=== PATIENT | male | born 1935 | race Two or more races ===

== ENCOUNTER 2016-09-19 15:27 | Inpatient (IN) | payer OTHER, MEDICARE ==
[2016-09-19] VITALS (10 sets, daily range): BP systolic 99–135; BP diastolic 49–106
[~2016-09-19] VITALS: Ht 175.3 cm; Wt 99.8 kg
[~2016-09-19 15:27] MED LIST: ALBU18HF2 INH; AMIO200T2 PO; ASPI325T2 PO; BISA-79 PO; CLOP75TA2 PO; DOCU100T PO; FERR1TAB44 PO; FLUT1DIS5 IH; FURO-144 PO; MECL-102 PO; METO5TAB7 PO; PHEN100C12 PO; POTA10TA15 PO; SENN-15 PO; SPIR25TA4 PO; TAMS0.4C34 PO; TIOT18CA3 IH
[2016-09-19] MEDS ORDERED: DEXAMETHASONE SOD PHOSPHATE 10 MG/ML VIAL ONE (15:46)
[2016-09-19] MEDS ORDERED: ALBUTEROL FS 2.5 MG/3 ML VIAL.NEB ONE (15:47)
[2016-09-19] MEDS ORDERED: IPRATROPIUM NEB FS 0.5 MG/2.5 ML AMPUL.NEB ONE (15:48)
[2016-09-19 15:53] LABS: BASOPHILS % (AUTO) 0.2 % (0.0-2.0); DIFF TOTAL % 100 %; EOSINOPHILS # (AUTO) 0.1 /CMM (0.0-0.7); EOSINOPHILS % (AUTO) 0.8 % (0.0-6.0); HEMATOCRIT 43 % (39-51); LYMPHOCYTES # (AUTO) 0.9 /CMM (0.8-4.8); LYMPHOCYTES % (AUTO) 6.4 % (20.0-44.0); MEAN CORPUSCULAR HEMOGLOBIN 22 PG (26.0-33.0); MEAN CORPUSCULAR HGB CONC 31 g/dl (31.0-36.0); MEAN CORPUSCULAR VOLUME 72 fL (80-96); MONOCYTES # (AUTO) 1.1 /CMM (0.1-1.30); NEUTROPHILS # (AUTO) 11.2 /CMM (1.8-8.9); NEUTROPHILS % (AUTO) 84.6 % (43.0-81.0); PLATELET COUNT (AUTO) 229 /CMM (150-450); RED BLOOD CELL COUNT(AUTO) 5.95 MIL/uL (4.5-6.0); WHITE BLOOD COUNT (AUTO) 13.3 K/uL (4.3-11.0)
[2016-09-19] MEDS ORDERED: IPRATROPIUM NEB FS 0.5 MG/2.5 ML AMPUL.NEB NEB ONE (16:00)
[2016-09-19] MEDS ORDERED: DEXAMETHASONE SOD PHOSPHATE 10 MG/ML VIAL IV ONE (16:00)
[2016-09-19] MEDS ORDERED: ALBUTEROL FS 2.5 MG/3 ML VIAL.NEB CONTNEB ONE (16:00)
[2016-09-19 16:16] LABS: ALBUMIN 3.4 g/dL (3.4-5.0); BILIRUBIN,DIRECT 0.1 mg/dL (0.0-0.2); BILIRUBIN,TOTAL 0.3 mg/dL (0.2-1.0); CALCIUM, SERUM 8.8 mg/dL (8.5-10.1); CREATININE 1.3 mg/dL (0.6-1.3); INDIRECT BILIRUBIN 0.2 mg/dL (0.0-1.1); TOTAL PROTEIN, SERUM 8.1 g/dL (6.4-8.2)
[2016-09-19 16:19] LABS: ABG BASE EXCESS 25.4 mmol/L; ABG HCO3 55.4 mmol/L; ABG PCO2 87.6 mmHg (35.0-45.0); ABG PH 7.419 (7.350-7.450); ABG PO2 65.3 mmHg (75.0-100.0); ABG TOTAL HEMOGLOBIN 13.2 G/dL (13.5-18.0); ALLEN TEST Pass; AaDO2 119.2 mmHg; O2Hb 91.4 % (94.0-97.0)
[2016-09-19 16:19] LABS: TROPONIN I 0.044 ng/mL (0.00-0.056)
[2016-09-19] MEDS ORDERED: AMIO200T2 PO (16:26)
[2016-09-19] MEDS ORDERED: POTASSIUM CHLORIDE 20 MEQ TAB.PRT.SR PO ONE ×2 (16:56→17:00)
[2016-09-19] MEDS ORDERED: IV SET PRIMARY PUMP SET 1 EA INFUS.SET MC ONE ×2 (16:57→20:08)
[2016-09-19] MEDS ORDERED: POTASSIUM CL. PREMIX PERIPHER. 50 ML ONE ×2 (16:57→21:33)
[2016-09-19] MEDS ORDERED: PHENYTOIN EXTENDED RELEASE 100 MG CAPSULE PO SCH (17:00)
[2016-09-19] MEDS ORDERED: SPIRONOLACTONE 25 MG TABLET PO SCH (17:00)
[2016-09-19] MEDS ORDERED: MECLIZINE HCL 25 MG TABLET PO PRN ×2 (17:00→17:45)
[2016-09-19] MEDS ORDERED: ENOXAPARIN SODIUM 40 MG/0.4 ML DISP.SYRIN SQ SCH ×2 (17:00→17:45)
[2016-09-19] MEDS ORDERED: AMIODARONE HCL 200 MG TABLET PO SCH ×2 (17:00→17:45)
[2016-09-19] MEDS ORDERED: FUROSEMIDE 40 MG/4 ML VIAL IV SCH (17:00)
[2016-09-19] MEDS: POTASSIUM CL. PREMIX PERIPHER. 50 ML IV SCH ×2 (17:11→21:37)
[2016-09-19 17:35] LABS: PHOSPHORUS 1.9 mg/dL (2.5-4.9)
[2016-09-19 17:49] LABS: THYROID STIMULATING HORMONE 7.904 uIU/mL (0.358-3.74)
[2016-09-19 17:53] LABS: ANISOCYTOSIS 1+; EOSINOPHILS % (MANUAL) 1 % (0-4); HYPOCHROMASIA 1+; LYMPHOCYTES % (MANUAL) 2 % (16-48); MICROCYTOSIS 1+; PLATELET ESTIMATE ADEQUATE
[2016-09-19] MEDS ORDERED: ACETAMINOPHEN 325 MG TABLET PO PRN (18:00)
[2016-09-19] MEDS ORDERED: DOCUSATE SODIUM 100 MG CAPSULE PO PRN ×2 (18:00→18:30)
[2016-09-19] MEDS ORDERED: ALBUTEROL FS 2.5 MG/3 ML VIAL.NEB NEB PRN (18:00)
[2016-09-19] MEDS: SPIRONOLACTONE 25 MG TABLET PO SCH (19:48)
[2016-09-19] MEDS: PHENYTOIN EXTENDED RELEASE 100 MG CAPSULE PO SCH (19:48)
[2016-09-19] MEDS: FUROSEMIDE 40 MG/4 ML VIAL IV SCH ×2 (19:48→21:37)
[2016-09-19] MEDS: NITROGLYCERIN PACKET 1 GM PACKET TOP SCH ×2 (19:49→23:40)
[2016-09-19] MEDS ORDERED: LEVOFLOXACIN 750 MG /D5W 150ML 750 MG in PREMIX 1 EA IV SCH (20:00)
[2016-09-19] MEDS ORDERED: BUMETANIDE INJ 8 MG in IV NS 0.9% 48 ML IV ONE (20:00)
[2016-09-19] MEDS: ALBUTEROL FS 2.5 MG/3 ML VIAL.NEB NEB SCH (20:04)
[2016-09-19] MEDS ORDERED: SECONDARY IV SET 1 EA INFUS.SET MC ONE ×2 (20:08→21:34)
[2016-09-19] MEDS ORDERED: IV NS 0.9% 250 ML IV ONE (20:08)
[2016-09-19] MEDS: LEVOFLOXACIN 750 MG /D5W 150ML 750 MG in PREMIX 1 EA IV SCH (20:18)
[2016-09-19] MEDS: methylPREDNISolone SOD SUCC 125 MG/2ML VIAL IV SCH (21:02)
[2016-09-19] MEDS: ENOXAPARIN SODIUM 40 MG/0.4 ML DISP.SYRIN SQ SCH (21:02)
[2016-09-20] VITALS (24 sets, daily range): BP systolic 87–153; BP diastolic 28–106
[2016-09-20] MEDS: FUROSEMIDE 40 MG/4 ML VIAL IV SCH (01:51)
[2016-09-20] MEDS: methylPREDNISolone SOD SUCC 125 MG/2ML VIAL IV SCH ×3 (05:02→21:32)
[2016-09-20] MEDS: NITROGLYCERIN PACKET 1 GM PACKET TOP SCH ×3 (05:03→18:00)
[2016-09-20 05:31] LABS: DIFF TOTAL % 100 %; HEMATOCRIT 44 % (39-51); HEMOGLOBIN 13.4 g/dL (13.5-17.5); LYMPHOCYTES # (AUTO) 0.5 /CMM (0.8-4.8); LYMPHOCYTES % (AUTO) 4.5 % (20.0-44.0); MEAN CORPUSCULAR HEMOGLOBIN 22 PG (26.0-33.0); MEAN CORPUSCULAR HGB CONC 31 g/dl (31.0-36.0); MEAN CORPUSCULAR VOLUME 72 fL (80-96); MONOCYTES # (AUTO) 0.6 /CMM (0.1-1.30); MONOCYTES % (AUTO) 5.3 % (2.0-12.0); NEUTROPHILS # (AUTO) 10.6 /CMM (1.8-8.9); NEUTROPHILS % (AUTO) 90.2 % (43.0-81.0); PLATELET COUNT (AUTO) 257 /CMM (150-450); RED BLOOD CELL COUNT(AUTO) 6.05 MIL/uL (4.5-6.0); WHITE BLOOD COUNT (AUTO) 11.8 K/uL (4.3-11.0)
[2016-09-20 05:37] LABS: CALCIUM, SERUM 9.3 mg/dL (8.5-10.1); CREATININE 1.4 mg/dL (0.6-1.3); POTASSIUM 4.1 mmol/L (3.5-5.1)
[2016-09-20 06:11] LABS: POTASSIUM 2.8 mmol/L (3.5-5.1)
[2016-09-20] MEDS ORDERED: BUMETANIDE INJ 8 MG in IV NS 0.9% 48 ML IV ONE (07:30)
[2016-09-20] MEDS: ALBUTEROL FS 2.5 MG/3 ML VIAL.NEB NEB SCH ×3 (07:38→19:41)
[2016-09-20] MEDS ORDERED: POTASSIUM CHLORIDE 20 MEQ TAB.PRT.SR PO SCH (08:00)
[2016-09-20] MEDS ORDERED: SECONDARY IV SET 1 EA INFUS.SET MC ONE (08:21)
[2016-09-20] MEDS: Magnesium 1GM/D5W 100ML PREMIX 100 ML IV SCH ×2 (08:51→10:39)
[2016-09-20] MEDS: PANTOPRAZOLE 40 MG TABLET.DR PO SCH (08:52)
[2016-09-20] MEDS: ASPIRIN 325 MG TABLET PO SCH (08:53)
[2016-09-20] MEDS: SPIRONOLACTONE 25 MG TABLET PO SCH ×3 (08:53→17:33)
[2016-09-20] MEDS: PHENYTOIN EXTENDED RELEASE 100 MG CAPSULE PO SCH ×3 (08:54→17:33)
[2016-09-20] MEDS: CLOPIDOGREL BISULFATE 75 MG TABLET PO SCH (08:55)
[2016-09-20] MEDS: TAMSULOSIN 0.4 MG CAP.SR.24H PO SCH (08:55)
[2016-09-20] MEDS: FERROUS SULFATE (325 MG) 325 MG/TAB TABLET PO SCH (08:55)
[2016-09-20] MEDS: METOLAZONE 2.5 MG TABLET PO SCH (08:56)
[2016-09-20] MEDS ORDERED: ASPIRIN 325 MG TABLET PO SCH ×2 (09:00)
[2016-09-20] MEDS ORDERED: FERROUS SULFATE (325 MG) 325 MG/TAB TABLET PO SCH ×2 (09:00)
[2016-09-20] MEDS ORDERED: CLOPIDOGREL BISULFATE 75 MG TABLET PO SCH (09:00)
[2016-09-20] MEDS ORDERED: TAMSULOSIN 0.4 MG CAP.SR.24H PO SCH (09:00)
[2016-09-20] MEDS ORDERED: METOLAZONE 2.5 MG TABLET PO SCH (09:00)
[2016-09-20] MEDS ORDERED: ASPIRIN 81 MG TAB.CHEW PO SCH (09:00)
[2016-09-20] MEDS ORDERED: Magnesium 1GM/D5W 100ML PREMIX 100 ML IV SCH (09:00)
[2016-09-20] MEDS: AMIODARONE HCL 200 MG TABLET PO SCH ×2 (09:00→17:33)
[2016-09-20 09:19] LABS: LYMPHOCYTES % (MANUAL) 4 % (16-48)
[2016-09-20 09:20] LABS: ANISOCYTOSIS 1+; HYPOCHROMASIA 1+; MICROCYTOSIS 1+; PLATELET ESTIMATE ADEQUATE
[2016-09-20] MEDS: IPRATROPIUM NEB FS 0.5 MG/2.5 ML AMPUL.NEB NEB SCH ×2 (13:02→19:41)
[2016-09-20] MEDS: ENOXAPARIN SODIUM 40 MG/0.4 ML DISP.SYRIN SQ SCH (21:27)
[2016-09-21] VITALS (8 sets, daily range): BP systolic 109–141; BP diastolic 56–74
[2016-09-21] MEDS: IPRATROPIUM NEB FS 0.5 MG/2.5 ML AMPUL.NEB NEB SCH ×4 (01:20→19:29)
[2016-09-21] MEDS: methylPREDNISolone SOD SUCC 125 MG/2ML VIAL IV SCH ×3 (05:50→20:23)
[2016-09-21] MEDS: NITROGLYCERIN PACKET 1 GM PACKET TOP SCH ×3 (05:50→12:47)
[2016-09-21] MEDS: ALBUTEROL FS 2.5 MG/3 ML VIAL.NEB NEB SCH ×3 (07:19→19:29)
[2016-09-21 07:41] LABS: ALBUMIN 3.2 g/dL (3.4-5.0); BILIRUBIN,TOTAL 0.3 mg/dL (0.2-1.0); CALCIUM, SERUM 9.3 mg/dL (8.5-10.1); CREATININE 1.4 mg/dL (0.6-1.3); PHOSPHORUS 3.4 mg/dL (2.5-4.9); POTASSIUM 3.3 mmol/L (3.5-5.1)
[2016-09-21 08:16] LABS: DIFF TOTAL % 100 %; HEMATOCRIT 44 % (39-51); HEMOGLOBIN 13.5 g/dL (13.5-17.5); LYMPHOCYTES # (AUTO) 0.8 /CMM (0.8-4.8); LYMPHOCYTES % (AUTO) 4.4 % (20.0-44.0); MEAN CORPUSCULAR HEMOGLOBIN 22 PG (26.0-33.0); MEAN CORPUSCULAR HGB CONC 31 g/dl (31.0-36.0); MEAN CORPUSCULAR VOLUME 71 fL (80-96); MONOCYTES # (AUTO) 0.9 /CMM (0.1-1.30); MONOCYTES % (AUTO) 5.1 % (2.0-12.0); NEUTROPHILS # (AUTO) 15.9 /CMM (1.8-8.9); NEUTROPHILS % (AUTO) 90.5 % (43.0-81.0); PLATELET COUNT (AUTO) 231 /CMM (150-450); RED BLOOD CELL COUNT(AUTO) 6.17 MIL/uL (4.5-6.0); WHITE BLOOD COUNT (AUTO) 17.5 K/uL (4.3-11.0)
[2016-09-21] MEDS: PANTOPRAZOLE 40 MG TABLET.DR PO SCH (08:47)
[2016-09-21] MEDS: FERROUS SULFATE (325 MG) 325 MG/TAB TABLET PO SCH (08:48)
[2016-09-21] MEDS: AMIODARONE HCL 200 MG TABLET PO SCH ×2 (08:48→17:15)
[2016-09-21] MEDS: PHENYTOIN EXTENDED RELEASE 100 MG CAPSULE PO SCH ×3 (08:48→17:15)
[2016-09-21] MEDS: SPIRONOLACTONE 25 MG TABLET PO SCH ×3 (08:48→17:15)
[2016-09-21] MEDS: TAMSULOSIN 0.4 MG CAP.SR.24H PO SCH (08:48)
[2016-09-21] MEDS: ASPIRIN 325 MG TABLET PO SCH (08:48)
[2016-09-21] MEDS: METOLAZONE 2.5 MG TABLET PO SCH (08:49)
[2016-09-21] MEDS: CLOPIDOGREL BISULFATE 75 MG TABLET PO SCH (08:49)
[2016-09-21] MEDS ORDERED: MAGNESIUM CITRATE 296 ML BOTTLE PO ONE (10:00)
[2016-09-21] MEDS ORDERED: POTASSIUM CHLORIDE 20 MEQ TAB.PRT.SR PO SCH (12:00)
[2016-09-21] MEDS: POTASSIUM CHLORIDE 20 MEQ TAB.PRT.SR PO SCH ×2 (14:17→15:00)
[2016-09-21] MEDS: NITROGLYCERIN 30 GM TUBE TOP SCH (17:18)
[2016-09-21] MEDS: LEVOFLOXACIN 750 MG /D5W 150ML 750 MG in PREMIX 1 EA IV SCH (20:18)
[2016-09-21] MEDS: ENOXAPARIN SODIUM 40 MG/0.4 ML DISP.SYRIN SQ SCH (20:20)
[2016-09-22] VITALS: BP 120/73
[2016-09-22] MEDS: NITROGLYCERIN 30 GM TUBE TOP SCH ×4 (00:01→17:42)
[2016-09-22] MEDS: IPRATROPIUM NEB FS 0.5 MG/2.5 ML AMPUL.NEB NEB SCH ×4 (00:47→20:04)
[2016-09-22 04:00] VITALS: BP 107/59
[2016-09-22] MEDS: methylPREDNISolone SOD SUCC 125 MG/2ML VIAL IV SCH ×3 (05:33→17:41)
[2016-09-22] MEDS: PANTOPRAZOLE 40 MG TABLET.DR PO SCH (07:30)
[2016-09-22] MEDS: ALBUTEROL FS 2.5 MG/3 ML VIAL.NEB NEB SCH ×3 (07:40→20:04)
[2016-09-22 08:00] VITALS: BP 122/63
[2016-09-22 08:03] LABS: DIFF TOTAL % 100 %; HEMATOCRIT 44 % (39-51); HEMOGLOBIN 13.5 g/dL (13.5-17.5); LYMPHOCYTES # (AUTO) 0.5 /CMM (0.8-4.8); LYMPHOCYTES % (AUTO) 2.9 % (20.0-44.0); MEAN CORPUSCULAR HEMOGLOBIN 22 PG (26.0-33.0); MEAN CORPUSCULAR HGB CONC 31 g/dl (31.0-36.0); MEAN CORPUSCULAR VOLUME 71 fL (80-96); MONOCYTES # (AUTO) 0.8 /CMM (0.1-1.30); MONOCYTES % (AUTO) 4.3 % (2.0-12.0); NEUTROPHILS # (AUTO) 16.6 /CMM (1.8-8.9); NEUTROPHILS % (AUTO) 92.8 % (43.0-81.0); PLATELET COUNT (AUTO) 239 /CMM (150-450); RED BLOOD CELL COUNT(AUTO) 6.14 MIL/uL (4.5-6.0); WHITE BLOOD COUNT (AUTO) 17.9 K/uL (4.3-11.0)
[2016-09-22 08:25] LABS: CREATININE 1.2 mg/dL (0.6-1.3); POTASSIUM 4.6 mmol/L (3.5-5.1)
[2016-09-22 08:32] LABS: ANISOCYTOSIS 2+; BAND % (MANUAL) 3 % (0.0-5.0); EOSINOPHILS % (MANUAL) 1 % (0-4); LYMPHOCYTES % (MANUAL) 5 % (16-48); MICROCYTOSIS 2+; PLATELET ESTIMATE ADEQUATE
[2016-09-22 08:33] LABS: HYPOCHROMASIA 1+; POIKILOCYTOSIS 1+; POLYCHROMASIA SLT
[2016-09-22] MEDS: ASPIRIN 325 MG TABLET PO SCH (09:12)
[2016-09-22] MEDS: TAMSULOSIN 0.4 MG CAP.SR.24H PO SCH (09:12)
[2016-09-22] MEDS: SPIRONOLACTONE 25 MG TABLET PO SCH ×3 (09:12→17:41)
[2016-09-22] MEDS: FERROUS SULFATE (325 MG) 325 MG/TAB TABLET PO SCH (09:12)
[2016-09-22] MEDS: AMIODARONE HCL 200 MG TABLET PO SCH ×2 (09:13→17:42)
[2016-09-22] MEDS: CLOPIDOGREL BISULFATE 75 MG TABLET PO SCH (09:13)
[2016-09-22] MEDS: METOLAZONE 2.5 MG TABLET PO SCH (09:14)
[2016-09-22] MEDS: PHENYTOIN EXTENDED RELEASE 100 MG CAPSULE PO SCH ×3 (09:14→17:41)
[2016-09-22 12:00] VITALS: BP 108/59
[2016-09-22 16:00] VITALS: BP 127/62
[2016-09-22 20:00] VITALS: BP 126/69
[2016-09-22] MEDS: ENOXAPARIN SODIUM 40 MG/0.4 ML DISP.SYRIN SQ SCH (21:41)
[2016-09-23] VITALS (8 sets, daily range): BP systolic 119–150; BP diastolic 64–89
[2016-09-23] MEDS: NITROGLYCERIN 30 GM TUBE TOP SCH ×4 (00:04→19:06)
[2016-09-23] MEDS: IPRATROPIUM NEB FS 0.5 MG/2.5 ML AMPUL.NEB NEB SCH ×4 (01:16→19:36)
[2016-09-23] MEDS: ALBUTEROL FS 2.5 MG/3 ML VIAL.NEB NEB SCH ×3 (07:35→19:36)
[2016-09-23 07:39] LABS: CALCIUM, SERUM 8.7 mg/dL (8.5-10.1); CREATININE 1.2 mg/dL (0.6-1.3); POTASSIUM 3.7 mmol/L (3.5-5.1)
[2016-09-23] MEDS: methylPREDNISolone SOD SUCC 125 MG/2ML VIAL IV SCH ×2 (09:24→19:04)
[2016-09-23] MEDS: CLOPIDOGREL BISULFATE 75 MG TABLET PO SCH (09:35)
[2016-09-23] MEDS: PHENYTOIN EXTENDED RELEASE 100 MG CAPSULE PO SCH ×3 (09:37→19:05)
[2016-09-23] MEDS: FERROUS SULFATE (325 MG) 325 MG/TAB TABLET PO SCH (09:40)
[2016-09-23] MEDS: PANTOPRAZOLE 40 MG TABLET.DR PO SCH (09:40)
[2016-09-23] MEDS: AMIODARONE HCL 200 MG TABLET PO SCH ×2 (09:40→19:05)
[2016-09-23] MEDS: ASPIRIN 325 MG TABLET PO SCH (09:41)
[2016-09-23] MEDS: SPIRONOLACTONE 25 MG TABLET PO SCH ×3 (09:41→19:05)
[2016-09-23] MEDS: TAMSULOSIN 0.4 MG CAP.SR.24H PO SCH (09:42)
[2016-09-23] MEDS: METOLAZONE 2.5 MG TABLET PO SCH (09:42)
[2016-09-23] MEDS ORDERED: IV SET PRIMARY PUMP SET 1 EA INFUS.SET MC ONE (19:57)
[2016-09-23] MEDS: LEVOFLOXACIN 750 MG /D5W 150ML 750 MG in PREMIX 1 EA IV SCH (20:00)
[2016-09-23] MEDS: ENOXAPARIN SODIUM 40 MG/0.4 ML DISP.SYRIN SQ SCH (21:20)
[2016-09-23] MEDS ORDERED: ZOLPIDEM TARTRATE 5 MG TABLET PO PRN (22:00)
[2016-09-24] MEDS: IPRATROPIUM NEB FS 0.5 MG/2.5 ML AMPUL.NEB NEB SCH ×3 (01:28→14:22)
[2016-09-24 04:00] VITALS: BP 131/71
[2016-09-24] MEDS: NITROGLYCERIN 30 GM TUBE TOP SCH ×2 (05:48)
[2016-09-24 07:28] LABS: CALCIUM, SERUM 8.5 mg/dL (8.5-10.1); CREATININE 1.2 mg/dL (0.6-1.3)
[2016-09-24] MEDS: PANTOPRAZOLE 40 MG TABLET.DR PO SCH (07:30)
[2016-09-24] MEDS: ALBUTEROL FS 2.5 MG/3 ML VIAL.NEB NEB SCH ×2 (07:38→14:22)
[2016-09-24 08:00] VITALS: BP 132/60
[2016-09-24 09:00] VITALS: BP 132/60
[2016-09-24] MEDS: PHENYTOIN EXTENDED RELEASE 100 MG CAPSULE PO SCH (09:00)
[2016-09-24] MEDS: TAMSULOSIN 0.4 MG CAP.SR.24H PO SCH (09:00)
[2016-09-24] MEDS: FERROUS SULFATE (325 MG) 325 MG/TAB TABLET PO SCH (09:00)
[2016-09-24] MEDS: methylPREDNISolone SOD SUCC 125 MG/2ML VIAL IV SCH (09:00)
[2016-09-24] MEDS: METOLAZONE 2.5 MG TABLET PO SCH (09:00)
[2016-09-24] MEDS: ASPIRIN 325 MG TABLET PO SCH (09:00)
[2016-09-24] MEDS: AMIODARONE HCL 200 MG TABLET PO SCH (09:00)
[2016-09-24] MEDS: CLOPIDOGREL BISULFATE 75 MG TABLET PO SCH (09:00)
[2016-09-24] MEDS: SPIRONOLACTONE 25 MG TABLET PO SCH (09:00)
[2016-09-24] MEDS ORDERED: FLUT1DIS3 INH (13:10)
[2016-09-24] MEDS ORDERED: IPRA42SP2 BNOSTRILS (13:13)
[2016-09-24] MEDS ORDERED: ALBU8.5H2 INH (13:14)
[2016-09-24] MEDS ORDERED: PRED20TA PO (13:32)
== END 2016-09-24 15:00 | disposition home or self-care (01) | DRG 194 ==
LOC: ER 15:29 → ICU 17:37 → TELE-TD 09-20 16:57 → TELE1 09-21 20:02 → MEDSG1 09-23 11:01
PROVIDERS: ADMIT Legal Medicine; ATTEND Legal Medicine
PROC: 5A09357 Assistance with Respiratory Ventilation, Less than 24 Consecutive Hours, Continuous Positive Airway Pressure (ICD-10-PCS; principal; 2016-09-19)
DX: I11.0 Hypertensive heart disease with heart failure (principal); J96.21 Acute and chronic respiratory failure with hypoxia; N17.0 Acute kidney failure with tubular necrosis; E86.0 Dehydration; J44.1 Chronic obstructive pulmonary disease with (acute) exacerbation; I48.91 Unspecified atrial fibrillation; E87.1 Hypo-osmolality and hyponatremia; E03.9 Hypothyroidism, unspecified; E83.42 Hypomagnesemia; I50.23 Acute on chronic systolic (congestive) heart failure; E78.5 Hyperlipidemia, unspecified; J96.22 Acute and chronic respiratory failure with hypercapnia; G47.33 Obstructive sleep apnea (adult) (pediatric); G40.909 Epilepsy, unspecified, not intractable, without status epilepticus; Z87.11 Personal history of peptic ulcer disease; K21.9 Gastro-esophageal reflux disease without esophagitis; Z87.891 Personal history of nicotine dependence; Z95.810 Presence of automatic (implantable) cardiac defibrillator; Z95.1 Presence of aortocoronary bypass graft; K59.00 Constipation, unspecified; J40 Bronchitis, not specified as acute or chronic
CPT/HCPCS: 36415; 36600; 71010-TC; 80048-TC; 80053-TC; 80061-TC; 80076-TC; 80185-TC; 82728-TC; 83540-TC; 83735-TC; 83880; 84100-TC; 84439-TC; 84443-TC; 84484-TC; 85025-TC; 87081-TC; 93307-TC; 94760-TC; 94799-TC; 97001-TC; A4216; A4606; J1100; J1650; J1940; J1956; J2930; J3475; J3480; J3490; J7050; Z7610

== ENCOUNTER 2016-11-29 13:04 | Inpatient (IN) | payer OTHER, MEDICARE ==
[~2016-11-29] VITALS: Ht 172.7 cm; Wt 98.0 kg
[~2016-11-29 13:04] MED LIST changes: -ALBU18HF2 INH; +ALBU8.5H2 INH; -BISA-79 PO; +FLUT1DIS3 INH; -FLUT1DIS5 IH; +IPRA42SP2 BNOSTRILS; -POTA10TA15 PO; +PRED20TA PO; -SENN-15 PO; -TIOT18CA3 IH
--- NOTE | 2016-11-29 13:04 | NUR ---
BB FAMILY CC INCREASING WEAKNESS AND SHORTNESS OF BREATH X 3 DAYS. PT AAO X3, FAMILY AT BEDSIDE. PT O2 SATURATING WELL, 96%, PLACED ON 2L O2. PT PLACED IN GOWN AND MONITOR. AWAITING MD FOR EVAL.
--- NOTE | 2016-11-29 13:52 | NUR ---
PT BEING WORKED ON. WILL TRY CXR AROUND 1415.
[2016-11-29 14:11] LABS: EOSINOPHILS # (AUTO) 0.1 /CMM (0.0-0.7)
[2016-11-29 14:15] LABS: TROPONIN I 0.038 ng/mL (0.00-0.056)
[2016-11-29 14:20] LABS: ALBUMIN 3.1 g/dL (3.4-5.0); BILIRUBIN,DIRECT 0.1 mg/dL (0.0-0.2); BILIRUBIN,TOTAL 0.6 mg/dL (0.2-1.0); CREATININE 2.1 mg/dL (0.6-1.3); POTASSIUM 3.2 mmol/L (3.5-5.1); TOTAL PROTEIN, SERUM 7.4 g/dL (6.4-8.2)
[2016-11-29 14:32] LABS: BASOPHILS % (AUTO) 0.2 % (0.0-2.0); EOSINOPHILS % (AUTO) 0.4 % (0.0-6.0); HEMATOCRIT 43 % (39-51); HEMOGLOBIN 13.1 g/dL (13.5-17.5); LYMPHOCYTES # (AUTO) 1.1 /CMM (0.8-4.8); LYMPHOCYTES % (AUTO) 7.8 % (20.0-44.0); MEAN CORPUSCULAR HEMOGLOBIN 22 PG (26.0-33.0); MEAN CORPUSCULAR HGB CONC 31 g/dl (31.0-36.0); MEAN CORPUSCULAR VOLUME 72 fL (80-96); MONOCYTES % (AUTO) 7.2 % (2.0-12.0); NEUTROPHILS % (AUTO) 84.4 % (43.0-81.0); PLATELET COUNT (AUTO) 292 /CMM (150-450); RDW COEFFICIENT OF VARIATION 16.3 (11.5-15.0); WHITE BLOOD COUNT (AUTO) 14.2 K/uL (4.3-11.0)
[2016-11-29 14:37] LABS: INR 0.94 (0.87-1.13)
[2016-11-29 14:49] LABS: LYMPHOCYTES % (MANUAL) 11 % (16-48); MONOCYTES % (MANUAL) 9 % (0-11.0); NEUTROPHILS % (MANUAL) 80 (42-76)
[2016-11-29 14:50] LABS: ANISOCYTOSIS 1+
[2016-11-29 14:51] LABS: PLATELET ESTIMATE ADEQU; STOMATOCYTES 1+
[2016-11-29] MEDS ORDERED: IPRATROPIUM NEB FS 0.5 MG/2.5 ML AMPUL.NEB NEB ONE (15:00)
[2016-11-29] MEDS ORDERED: ALBUTEROL FS 2.5 MG/3 ML VIAL.NEB NEB ONE (15:00)
[2016-11-29] MEDS ORDERED: predniSONE 20 MG TABLET PO ONE (15:00)
[2016-11-29] MEDS ORDERED: IV SET PRIMARY PUMP SET 1 EA INFUS.SET MC ONE ×2 (15:07→18:55)
[2016-11-29] MEDS ORDERED: LEVOFLOXACIN 500 MG /D5W 100ML 100 ML IV ONE (15:07)
[2016-11-29] MEDS ORDERED: predniSONE 20 MG TABLET ONE (15:07)
[2016-11-29] MEDS ORDERED: ALBUTEROL FS 2.5 MG/3 ML VIAL.NEB ONE (15:11)
[2016-11-29] MEDS ORDERED: IPRATROPIUM NEB FS 0.5 MG/2.5 ML AMPUL.NEB ONE (15:11)
--- NOTE | 2016-11-29 15:11 | NUR ---
PAGED DR PICHARDO
--- NOTE | 2016-11-29 15:15 | NUR ---
RT AT BEDSIDE FOR ABG
--- NOTE | 2016-11-29 15:15 | NUR ---
MEDICATIONS GIVEN ORDERED.
[2016-11-29 15:25] LABS: ABG BASE EXCESS 17.5 mmol/L; ABG OXYGEN SATURATION 94.7 % (92.0-98.5); ABG PCO2 72.5 mmHg (35.0-45.0); ABG PO2 77.3 mmHg (75.0-100.0); ABG TOTAL HEMOGLOBIN 13.8 G/dL (13.5-18.0); AaDO2 109.9 mmHg; COHb 1.6 % (0.5-1.5); O2Hb 93.2 % (94.0-97.0); SITE, ABG Left Radial
[2016-11-29] MEDS ORDERED: LEVOFLOXACIN 500 MG /D5W 100ML 500 MG/100 ML PIGGYBACK IV ONE (15:30)
--- NOTE | 2016-11-29 15:30 | NUR ---
PER DR DREW NO BIPAP NEEDED. ABG REVIEWED BY .
[2016-11-29] MEDS ORDERED: CARI350T27 PO (15:34)
[2016-11-29] MEDS ORDERED: CYAN10006 IM (15:34)
[2016-11-29] MEDS ORDERED: BISA5TAB10 PO (15:34)
[2016-11-29] MEDS ORDERED: DICL75TA5 PO (15:34)
[2016-11-29] MEDS ORDERED: RANO500T3 PO (15:34)
[2016-11-29] MEDS ORDERED: AMIO200T2 PO (15:34)
[2016-11-29] MEDS ORDERED: SENN8.6T6 PO (15:34)
[2016-11-29] MEDS ORDERED: MECL12.582 PO (15:43)
[2016-11-29] MEDS ORDERED: PHEN100C4 PO (15:43)
[2016-11-29] MEDS ORDERED: GABA-532 PO (15:43)
[2016-11-29] MEDS ORDERED: MELO-264 PO (15:49)
[2016-11-29] MEDS ORDERED: FURO-144 PO (15:49)
[2016-11-29] MEDS ORDERED: CALC1CAP21 PO (15:52)
[2016-11-29] MEDS ORDERED: TIOT4MIS3 IH (15:52)
[2016-11-29] MEDS ORDERED: NITR0.4T SL (15:52)
[2016-11-29] MEDS ORDERED: ERGO500047 PO (16:14)
[2016-11-29] MEDS ORDERED: POTA10CA43 PO (16:16)
--- NOTE | 2016-11-29 16:17 | NUR ---
REPORT GIVEN TO MAULIK ELLIOTT FOR CONTINUITY OF CARE.
[2016-11-29 18:00] VITALS: BP 123/69
[2016-11-29] MEDS ORDERED: ALBUTEROL FS 2.5 MG/3 ML VIAL.NEB NEB PRN (18:30)
[2016-11-29] MEDS ORDERED: IPRATROPIUM NEB FS 0.5 MG/2.5 ML AMPUL.NEB NEB PRN (18:30)
[2016-11-29] MEDS ORDERED: ACETAMINOPHEN 325 MG TABLET PO PRN (18:30)
[2016-11-29] MEDS: IV NS 0.9% 1,000 ML IV PRN (19:02)
--- NOTE | 2016-11-29 19:15 | NUR ---
RN CLOSING NOTES PT RESTING IN BED COMFORTABLY, ALL MD ORDERS CARRIED OUT. PT KEPT CLEAN AND DRY. REPORT WILL BE GIVEN TO PM RN FOR CONTINUATION OF CARE.
--- NOTE | 2016-11-29 19:30 | NUR ---
RN NOTES RECEIVED PT AWAKE ALERT ORIENTED X 3 HUNGARIAN AND SERBIAN SPEAKING. ABLE TO MAKE KNOWN NEEDS AND VERBALIZED FEELINGS. NO SOB ON O2 4LPM VIA NC. SR 85 ON TELE MONITOR. PT STATED STILL FEELING LITTLE BIT DIZZY BUT HE FEELS MUCH BETTER THAN YESTERDAY. AFEBRILE. NO SOB OR DISTRESS. AMBULATE TO THE BATHROOM. IV SITE ON LAC G 18 AND RIGHT HAND G 18 RUNNING WITH NS @ 75 CC/HR INTACT AND PATENT. REMINDED PT TO WALK CAREFULLY AND SLOWLY AND ASKED FOR ASSISTANCE FOR SAFETY. KEPT PT CLEAN AND COMFORTABLE IN BED WILL CONTINUE TO MONITOR. Addendum: 11/29/16 at 0344 by ZAIN PATINO RN WRONG PATIENT....
--- NOTE | 2016-11-29 19:40 | NUR ---
RN NOTES RECEIVED PT AWAKE AOX3 KAZAKH AND WOLOF SPEAKING. AFEBRILE. NO ACUTE RESP DISTRESS SHOWS ON O2 4LPM VIA NC. SATING 97%. SR WITH BBB HR 81 ON TELE MONITOR. AMBULATE WITH ASSIST AND CANE. IV SITE ON LEFT WRIST G 20 AND RFA G18 RUNNING WITH NS @ 75 CC/HR INTACT AND PATENT. KEPT PT CLEAN AND COMFORTABLE IN BED. REMINDED TO USED CALL LIGHT FOR ASSISTANCE. FAMILY AT BEDSIDE AND WILL STAY FOR TONIGHT.
[2016-11-29] MEDS: ALBUTEROL FS 2.5 MG/3 ML VIAL.NEB NEB SCH (19:49)
[2016-11-29] MEDS: IPRATROPIUM NEB FS 0.5 MG/2.5 ML AMPUL.NEB NEB SCH (19:49)
[2016-11-29 20:00] VITALS: BP 107/68
[2016-11-29 20:50] VITALS: BP 107/68
[2016-11-29] MEDS: methylPREDNISolone SOD SUCC 125 MG/2ML VIAL IV SCH (21:31)
[2016-11-29] MEDS: ENOXAPARIN SODIUM 30 MG/0.3 ML DISP.SYRIN SQ SCH (21:36)
--- NOTE | 2016-11-29 22:00 | NUR ---
RN NOTES RT STARTED TO PLACED BIPAP FIO2 35% PT TOLERATED WELL SATING 97%
--- NOTE | 2016-11-29 23:28 | NUR ---
RN NOTES PT REFUSED TO HAVE A BIPAP INTERPRETED BY FAMILY AT BEDSIDE, RT AWARE PLACED PATIENT BACK TO O2 3LPM VIA NC WITH SATURATION 97%. TOLERATED WELL NO ACUT ERESP DISTRESS. WILL FREQ. MONITOR.
[2016-11-30] VITALS (8 sets, daily range): BP systolic 83–132; BP diastolic 53–84
[2016-11-30] MEDS ORDERED: LORAZEPAM INJ 2 MG/ML VIAL IV PRN (03:00)
[2016-11-30] MEDS ORDERED: LORAZEPAM INJ 2 MG/ML VIAL ONE (03:12)
--- NOTE | 2016-11-30 04:00 | NUR ---
RN NOTES PT AGREED TO HAVE BIPAP IN A SHORT PERIOD OF TIME. TOLERATED WELL. WILL MONITORED
[2016-11-30] MEDS: methylPREDNISolone SOD SUCC 125 MG/2ML VIAL IV SCH ×3 (05:25→21:00)
[2016-11-30 06:36] LABS: EOSINOPHILS % (AUTO) 0.1 % (0.0-6.0); HEMATOCRIT 41 % (39-51); HEMOGLOBIN 12.4 g/dL (13.5-17.5); LYMPHOCYTES # (AUTO) 0.6 /CMM (0.8-4.8); LYMPHOCYTES % (AUTO) 5.9 % (20.0-44.0); MEAN CORPUSCULAR HEMOGLOBIN 22 PG (26.0-33.0); MEAN CORPUSCULAR HGB CONC 30 g/dl (31.0-36.0); MEAN CORPUSCULAR VOLUME 72 fL (80-96); MONOCYTES # (AUTO) 0.3 /CMM (0.1-1.30); MONOCYTES % (AUTO) 2.9 % (2.0-12.0); NEUTROPHILS % (AUTO) 91.1 % (43.0-81.0); PLATELET COUNT (AUTO) 282 /CMM (150-450); RED BLOOD CELL COUNT(AUTO) 5.71 MIL/uL (4.5-6.0); WHITE BLOOD COUNT (AUTO) 9.8 K/uL (4.3-11.0)
--- NOTE | 2016-11-30 06:50 | NUR ---
RN NOTES PT IS AWAKE QUITE LAYING ON BED. NO ACUTE RESP DISTRESS. TOLERATED O2 3LPM VIA NC. SATING 96% AFEBRILE. COMPLAINING OF PAIN ON HIS SHOULDER AND ASKED FOR PAIN CREAM. ENCOURAGED TO REPOSITIONED WHILE ON BED. OFFERED PAIN PILL MEDICINE BUT PT REFUSED. AND ONLY WANTS CREAM. LEFT A MESSAGE TO MD AND WAITING TO CALL BACK. WILL ENDORSED CONTINUITY OF CARE TO AM NURSE.
[2016-11-30 07:03] LABS: CALCIUM, SERUM 8.4 mg/dL (8.5-10.1); CREATININE 1.8 mg/dL (0.6-1.3)
--- NOTE | 2016-11-30 07:15 | NUR ---
RN CARTER INITIAL NOTES RECEIVED REPORT AND PT FROM PM NURSE, PT RESTING IN BED NOT IN ANY ACUTE DISTRESS, PT SITTING UPRIGHT, A&O X3 JAPANESE AND FRENCH SPEAKING, ON 3L NC SAT ABOVE 97%, NO SOB, ON TELE MON SR 80'S, LT WRIST 20 IV AND RT FA 18 G IV RUNNING NS @ 75CC/HR NO INFILTRATION NOTED, ALL IVS PATENT, ALL NEEDS MET, ALL SAFETY MEASURES INITIATED, SIDE RAILS X2, BED LOW AND LOCKED, CALL LIGHT WITHIN REACH, WILL CONTINUE TO MONITOR.
[2016-11-30] MEDS: ALBUTEROL FS 2.5 MG/3 ML VIAL.NEB NEB SCH ×3 (07:35→20:11)
[2016-11-30] MEDS: IPRATROPIUM NEB FS 0.5 MG/2.5 ML AMPUL.NEB NEB SCH ×3 (07:35→20:11)
[2016-11-30 07:51] LABS: POTASSIUM 2.6 mmol/L (3.5-5.1)
[2016-11-30] MEDS: PANTOPRAZOLE 40 MG TABLET.DR PO SCH (08:14)
[2016-11-30] MEDS ORDERED: POTASSIUM CHLORIDE 20 MEQ TAB.PRT.SR PO ONE (08:30)
[2016-11-30] MEDS ORDERED: POTASSIUM CHLORIDE 10 MEQ/50 ML PREMIXED IVPB FOR PERIPHERAL LINE IV ONE (08:30)
[2016-11-30] MEDS ORDERED: SECONDARY IV SET 1 EA INFUS.SET MC ONE (09:12)
[2016-11-30] MEDS: IV NS 0.9% 1,000 ML IV PRN (09:20)
[2016-11-30] MEDS: POTASSIUM CL. PREMIX PERIPHER. 50 ML IV SCH ×4 (09:20→13:14)
--- NOTE | 2016-11-30 09:21 | NUR ---
WOUND CARE CONSULT: PATIENT SEEN AND SKIN ASSESSMENT DONE. PATIENT ALERT, SOB, ON BEDREST, ABLE TO TURN AND REPOSITION HOWEVER NEEDS ASSIST DUE TO WEAKNESS. PATIENT IS CONTINENT, AP 16. PATIENT WITH SCATTERED BRUISE/DISCOLORATION ON LOWER LEGS, ABDOMEN, LEFT HIP AND LEFT ARM PRESENT ON ADMISSION. BILATERAL FEET/HEELS NOTED DRYNESS. ACCORDING TO FAMILY AT THE BEDSIDE, PATIENT IS TAKING ANTICOAGULANT. RECOMMENDATIONS ON SKIN CARE, MOISTURIZE BOTH FEET/HEELS, MOISTURE PROTECTION WITH Z GUARD ORDERED, PRESSURE PREVENTION MEASURES DISCUSSED WITH NURSING STAFF. MD IN AGREEMENT WITH PLAN OF CARE. Addendum: 11/30/16 at 0926 by ADELFO MCFARLAND WNDNU Amended: Links added.
[2016-11-30] MEDS ORDERED: Z GUARD REMEDY 2 OZ OINT TP PRN (09:30)
[2016-11-30 09:31] LABS: ABG BASE EXCESS 13.8 mmol/L; ABG OXYGEN SATURATION 93.1 % (92.0-98.5); ABG PCO2 51.2 mmHg (35.0-45.0); ABG PH 7.499 (7.350-7.450); ABG PO2 67.9 mmHg (75.0-100.0); ABG TOTAL HEMOGLOBIN 12.5 G/dL (13.5-18.0); AaDO2 85.8 mmHg; COHb 1.9 % (0.5-1.5); MetHb 0.3 % (0.0-1.5); O2Hb 91.1 % (94.0-97.0); SITE, ABG Left Brachial; VENT MODE, BG 3L NC
[2016-11-30] MEDS: LIDOCAINE 5% (PATCH) 1 EA PATCH TP SCH (13:13)
[2016-11-30] MEDS: LEVOFLOXACIN (750 MG) 750 MG TABLET PO SCH (15:41)
--- NOTE | 2016-11-30 18:29 | NUR ---
RN CARTER ENDING NOTES PT STABLE WITH NO ACUTE CHANGES NOTED, ALL DUE MEDS GIVEN, ALL NEEDS MET, WILL CONTINUE CARE.
[2016-11-30] MEDS: ENOXAPARIN SODIUM 30 MG/0.3 ML DISP.SYRIN SQ SCH (19:43)
--- NOTE | 2016-11-30 20:00 | NUR ---
CARTER NOTES RECEIVED PT ON COOL AEROSOL VIA TRACH SPO2 100% ON 35% FI02.MEDICATED EARLIER FOR C/LT KNEE PAIN AND CHEST WALL PAIN 04/12.SITTER AT BEDSIDE. Addendum: 11/30/16 at 2144 by WILLARD PRECIADO RN WRONG PT.
--- NOTE | 2016-11-30 20:00 | NUR ---
CARTER NOTES RECEIVED PT AWAKE ALERT OX3 W/ FAMILY AT BED SIDE TO TRANSLATE AT TIMES.HELPED PT TO SIT UP ON SIDE OF BED PER PT'S REQUEST,THEN PUT BACK TO BED W/OUT INCIDENT.VITAL SIGNS STABLE.
--- NOTE | 2016-11-30 23:35 | NUR ---
CARTER NOTES. PLACED ON BIPAP 35%IE / RATE OF 16,SAT 96%.
[2016-12-01] VITALS (9 sets, daily range): BP systolic 90–147; BP diastolic 43–74
--- NOTE | 2016-12-01 01:01 | NUR ---
CARTER NOTES PT DC'D BIPAP,PLACED ON 3LN/N SAT 93-94%.
[2016-12-01] MEDS: IV NS 0.9% 1,000 ML IV PRN (03:43)
[2016-12-01] MEDS: methylPREDNISolone SOD SUCC 125 MG/2ML VIAL IV SCH ×3 (04:53→21:39)
--- NOTE | 2016-12-01 05:00 | NUR ---
CARTER NOTES ASSISTED OOB TO CHAIR AFTER BATH THEN BACK TO BED W/OUT INCIDENT.
--- NOTE | 2016-12-01 08:00 | NUR ---
RN CARTER: updated with pt.current condition, VS, I/O, IVF, O2sat., orthostatic BP: supine 110/50, seat 100/50, stand 90/50, ordered: continue IVF: NS@40ml/h, see new orders
[2016-12-01] MEDS: PANTOPRAZOLE 40 MG TABLET.DR PO SCH (08:16)
[2016-12-01] MEDS: ALBUTEROL FS 2.5 MG/3 ML VIAL.NEB NEB SCH ×3 (08:20→19:49)
[2016-12-01] MEDS: IPRATROPIUM NEB FS 0.5 MG/2.5 ML AMPUL.NEB NEB SCH ×3 (08:20→19:49)
--- NOTE | 2016-12-01 08:35 | NUR ---
RN CARTER: is in room, spoke with family, updated with all above, CT result, see new orders
[2016-12-01 08:48] LABS: ALBUMIN 2.6 g/dL (3.4-5.0); BILIRUBIN,TOTAL 0.6 mg/dL (0.2-1.0); CALCIUM, SERUM 8.3 mg/dL (8.5-10.1); CREATININE 1.5 mg/dL (0.6-1.3); MAGNESIUM 1.5 mg/dL (1.8-2.4); PHOSPHORUS 2.9 mg/dL (2.5-4.9); POTASSIUM 3.5 mmol/L (3.5-5.1); TOTAL PROTEIN, SERUM 6.8 g/dL (6.4-8.2)
[2016-12-01] MEDS: LORAZEPAM 0.5 MG TABLET PO SCH ×2 (09:00→21:39)
--- NOTE | 2016-12-01 11:15 | NUR ---
RN CARTER: pt.refused for Lorazepam morning dose
--- NOTE | 2016-12-01 12:00 | NUR ---
RN CARTER: notified re VS, O2sat, orthostatic BP, CO2 41, see new orders
[2016-12-01] MEDS: LIDOCAINE 5% (PATCH) 1 EA PATCH TP SCH (12:47)
[2016-12-01] MEDS: LEVOFLOXACIN (750 MG) 750 MG TABLET PO SCH (14:09)
--- NOTE | 2016-12-01 16:00 | NUR ---
RN CARTER: home meds reconciliation still needs to be done, sent message for
--- NOTE | 2016-12-01 16:43 | NUR ---
RN CARTER: pt.is A/ox3, no c/o now, no pain, VSS: SR, BP 122/54, O2sat WNL, getting IVF
[2016-12-01] MEDS: STIOLTO RESPIMAT INH SCH (17:00)
[2016-12-01] MEDS ORDERED: BISACODYL (5 MG) 5 MG TABLET.DR PO PRN (17:00)
[2016-12-01] MEDS ORDERED: MECLIZINE HCL 12.5 MG TABLET PO PRN (17:00)
[2016-12-01] MEDS ORDERED: Medication Not On Formulary EA (Ranolazine (Ranexa) 500 MG) PO SCH (17:00)
[2016-12-01] MEDS ORDERED: SENNOSIDES 8.6 MG TABLET PO PRN (17:00)
--- NOTE | 2016-12-01 17:00 | NUR ---
RN CARTER: called back, verified home meds, meds reconciliation order was sent to pharmacy
[2016-12-01] MEDS ORDERED: DOCUSATE SODIUM 100 MG CAPSULE PO PRN (17:30)
--- NOTE | 2016-12-01 17:30 | NUR ---
RN CARTER: pt. and pt. confirmed with translation: Stiolto inh. frequency: one puff BID, aware to bring Ranexa from home
[2016-12-01] MEDS: PHENYTOIN EXTENDED RELEASE 100 MG CAPSULE PO SCH (17:46)
[2016-12-01] MEDS: DICLOFENAC SODIUM 25 MG TABLET.DR PO SCH (17:46)
[2016-12-01] MEDS: AMIODARONE HCL 200 MG TABLET PO SCH (17:48)
--- NOTE | 2016-12-01 19:30 | NUR ---
HELPER MARBLE FINISHER INITIAL NOTE RECEIVED REPORT FROM BRIDGETTE ELLIOTT. PT UP IN ALIRIO CHAIR, AND SON AT BEDSIDE. PT IS A/A/O X3. LUNG SOUNDS MINIMAL RHONCHI, DIMINISHED AT LOWER BASES. BOWEL SOUNDS PRESENT. PULSES PRESENT IN ALL EXTREMITIES. IV PATENT AND INTACT WITH NS @ 40 INFUSING. CALL LIGHT WITHIN REACH. WILL CONTINUE TO MONITOR.
[2016-12-01] MEDS: ENOXAPARIN SODIUM 30 MG/0.3 ML DISP.SYRIN SQ SCH (20:20)
[2016-12-01] MEDS ORDERED: CARISOPRODOL 350 MG TABLET PO PRN (22:00)
[2016-12-02] VITALS (11 sets, daily range): BP systolic 71–144; BP diastolic 48–93
[2016-12-02] MEDS: methylPREDNISolone SOD SUCC 125 MG/2ML VIAL IV SCH ×3 (05:14→21:09)
[2016-12-02] MEDS: IV NS 0.9% 1,000 ML IV PRN (05:30)
--- NOTE | 2016-12-02 07:00 | NUR ---
RN NOTES RECEIVED SITTING UP ON A CHAIR, A/0x3, RESPIRATION EVEN EVEN AND UNLABORED, ON O2 3L N/C, ON TELE SR A PACING WITH PVC'S IN 60'S, LUNG SOUNDS MINIMAL RHONCHI, DIMINISHED AT LOWER BASES. IV SITE ON L WRIST CDI, WITH NS AT 40CC/HR INFUSING , BOWEL SOUNDS PRESENT. PULSES PRESENT IN ALL EXTREMITIES. CALL LIGHT WITHIN REACH , WILL CONTINUE TO MONITOR PT CLOSELY AND NOTIFY MD FOR ANY SIGNIFICANT CHANGES .
[2016-12-02] MEDS: IPRATROPIUM NEB FS 0.5 MG/2.5 ML AMPUL.NEB NEB SCH ×3 (07:34→19:51)
[2016-12-02] MEDS: ALBUTEROL FS 2.5 MG/3 ML VIAL.NEB NEB SCH ×3 (07:35→19:51)
[2016-12-02 07:37] LABS: EOSINOPHILS % (AUTO) 0.1 % (0.0-6.0); HEMATOCRIT 40 % (39-51); HEMOGLOBIN 12.1 g/dL (13.5-17.5); LYMPHOCYTES # (AUTO) 0.5 /CMM (0.8-4.8); LYMPHOCYTES % (AUTO) 4.5 % (20.0-44.0); MEAN CORPUSCULAR HEMOGLOBIN 22 PG (26.0-33.0); MEAN CORPUSCULAR HGB CONC 31 g/dl (31.0-36.0); MEAN CORPUSCULAR VOLUME 73 fL (80-96); MONOCYTES # (AUTO) 0.6 /CMM (0.1-1.30); MONOCYTES % (AUTO) 5.1 % (2.0-12.0); NEUTROPHILS # (AUTO) 10.8 /CMM (1.8-8.9); NEUTROPHILS % (AUTO) 90.3 % (43.0-81.0); PLATELET COUNT (AUTO) 277 /CMM (150-450); RDW COEFFICIENT OF VARIATION 16.1 (11.5-15.0); RED BLOOD CELL COUNT(AUTO) 5.46 MIL/uL (4.5-6.0)
[2016-12-02 07:42] LABS: CALCIUM, SERUM 8.6 mg/dL (8.5-10.1); CREATININE 1.5 mg/dL (0.6-1.3); POTASSIUM 3.6 mmol/L (3.5-5.1)
[2016-12-02] MEDS: DICLOFENAC SODIUM 25 MG TABLET.DR PO SCH ×2 (08:13→16:56)
[2016-12-02] MEDS: PANTOPRAZOLE 40 MG TABLET.DR PO SCH (08:14)
[2016-12-02] MEDS: PHENYTOIN EXTENDED RELEASE 100 MG CAPSULE PO SCH ×3 (08:14→16:56)
[2016-12-02] MEDS: CLOPIDOGREL BISULFATE 75 MG TABLET PO SCH (08:14)
[2016-12-02] MEDS: POTASSIUM CHLORIDE 10 MEQ TABLET.SA PO SCH (08:14)
[2016-12-02] MEDS: TAMSULOSIN 0.4 MG CAP.SR.24H PO SCH (08:14)
[2016-12-02] MEDS: ASPIRIN 325 MG TABLET PO SCH (08:14)
[2016-12-02] MEDS: CALCIUM CARB 600MG /VIT D 1 EACH TABLET PO SCH (08:14)
[2016-12-02] MEDS: FERROUS SULFATE (325 MG) 325 MG/TAB TABLET PO SCH (08:14)
[2016-12-02] MEDS: AMIODARONE HCL 200 MG TABLET PO SCH ×2 (08:14→16:57)
[2016-12-02] MEDS ORDERED: MELOXICAM 7.5 MG TABLET PO SCH (09:00)
[2016-12-02 09:25] LABS: ANISOCYTOSIS 1+; LYMPHOCYTES % (MANUAL) 4 % (16-48); MONOCYTES % (MANUAL) 8 % (0-11.0); NEUTROPHILS % (MANUAL) 88 (42-76); PLATELET ESTIMATE ADEQUATE
[2016-12-02 09:26] LABS: HYPOCHROMASIA 2+
--- NOTE | 2016-12-02 09:33 | NUR ---
RN NOTES SLIGHT REDNESS NOTED ON L WRIST IV SITE. L WRIST IV D/CR, NEW H/L #22 STARED ON R WRIST .
--- NOTE | 2016-12-02 10:30 | NUR ---
RN NOTES DR LAMAR NOTIFIED REGARDING ORTH STATIC BP ,PT IS ASYMPTOMATIC , CHRISTAL ANY DISTRESS ,
[2016-12-02] MEDS: STIOLTO RESPIMAT INH SCH ×2 (11:06→16:55)
[2016-12-02] MEDS: LIDOCAINE 5% (PATCH) 1 EA PATCH TP SCH (12:19)
--- NOTE | 2016-12-02 14:00 | NUR ---
RN NOTES PT OUT OF CHAIR TO BATHROOM WITH WALKER , DOING WELL, NO DISTRESS NOTED
[2016-12-02] MEDS: LEVOFLOXACIN (750 MG) 750 MG TABLET PO SCH (14:47)
--- NOTE | 2016-12-02 18:16 | NUR ---
RN NOTES PT STABLE, WALKIN WITH A WALKER IN THE MATI[address] WAY , VSS STABLE , MEDICATED PER MD ORDER NO SIGNFICANT CHAGNES NOTED ON THIS SHIFT
--- NOTE | 2016-12-02 19:30 | NUR ---
RETAIL SALES ADVISOR INITIAL NOTE RECEIVED REPORT FROM PINEDA ELLIOTT. PT UP IN CHAIR. A/A/O X3-4. LUNG SOUNDS CLEAR. BOWEL SOUNDS PRESENT. PULSES PRESENT IN ALL EXTREMITIES. IV PATENT AND INTACT. ORTHOSTATIC BP TAKEN. AMBULATORY WITH STAND BY ASSISTANCE TO BATHROOM. CALL LIGHT WITHIN REACH. AT BEDSIDE. WILL CONTINUE TO MONITOR.
[2016-12-02] MEDS: ENOXAPARIN SODIUM 30 MG/0.3 ML DISP.SYRIN SQ SCH (19:57)
[2016-12-02] MEDS: LORAZEPAM 0.5 MG TABLET PO SCH (21:09)
--- NOTE | 2016-12-02 23:05 | NUR ---
PT DOESN'T WANT TO USE BIPAP FOR NOW. O2 SAT 98% ON 3L NC NO RESP DISTRESS. RN NOTIFIED. WILL CONTINUE TO MONITOR.
[2016-12-03] VITALS (7 sets, daily range): BP systolic 94–128; BP diastolic 54–65
--- NOTE | 2016-12-03 02:42 | NUR ---
PT PLACED ON BIPAP. RN NOTIFIED. WILL CONTINUE TO MONITOR.
[2016-12-03] MEDS: methylPREDNISolone SOD SUCC 125 MG/2ML VIAL IV SCH ×2 (05:29→12:21)
[2016-12-03 06:47] LABS: BASOPHILS % (AUTO) 0.1 % (0.0-2.0); EOSINOPHILS % (AUTO) 0.1 % (0.0-6.0); HEMATOCRIT 40 % (39-51); LYMPHOCYTES % (AUTO) 7.9 % (20.0-44.0); MEAN CORPUSCULAR HEMOGLOBIN 22 PG (26.0-33.0); MEAN CORPUSCULAR HGB CONC 30 g/dl (31.0-36.0); MEAN CORPUSCULAR VOLUME 73 fL (80-96); MONOCYTES # (AUTO) 0.9 /CMM (0.1-1.30); MONOCYTES % (AUTO) 7.1 % (2.0-12.0); NEUTROPHILS # (AUTO) 10.2 /CMM (1.8-8.9); NEUTROPHILS % (AUTO) 84.8 % (43.0-81.0); PLATELET COUNT (AUTO) 245 /CMM (150-450); RED BLOOD CELL COUNT(AUTO) 5.41 MIL/uL (4.5-6.0); WHITE BLOOD COUNT (AUTO) 12.1 K/uL (4.3-11.0)
[2016-12-03 07:12] LABS: CALCIUM, SERUM 8.4 mg/dL (8.5-10.1); CREATININE 1.3 mg/dL (0.6-1.3); MAGNESIUM 1.8 mg/dL (1.8-2.4); PHOSPHORUS 2.1 mg/dL (2.5-4.9)
--- NOTE | 2016-12-03 07:27 | NUR ---
BUCKLE ASSEMBLER INITIAL NOTES RECEIVED REPORT AND PT FROM PM NURSE, PT RESTING IN CHAIR NEXT TO BED, PT ASLEEP AT THIS TIME, A&O X3 LAO SPEAKING, ON 3L NC SAT ABOVE 95%, LT CHEST WALL PACEMAKER, ON TELE MON SR WITH OCC PVCS, LT WRIST 20 G IV SITE INTACT AND PATENT NO S.S OF INFILTRATION, ALL NEEDS MET, ALL SAFETY MEASURES INITIATED, SIDE RAILS X2, BED LOW AND LOCKED, CALL LIGHT WITHIN REACH.
[2016-12-03] MEDS: IPRATROPIUM NEB FS 0.5 MG/2.5 ML AMPUL.NEB NEB SCH ×2 (07:35→13:53)
[2016-12-03] MEDS: ALBUTEROL FS 2.5 MG/3 ML VIAL.NEB NEB SCH ×2 (07:35→13:53)
[2016-12-03] MEDS: ASPIRIN 325 MG TABLET PO SCH (08:26)
[2016-12-03] MEDS: POTASSIUM CHLORIDE 10 MEQ TABLET.SA PO SCH (08:26)
[2016-12-03] MEDS: TAMSULOSIN 0.4 MG CAP.SR.24H PO SCH (08:27)
[2016-12-03] MEDS: PANTOPRAZOLE 40 MG TABLET.DR PO SCH (08:27)
[2016-12-03] MEDS: PHENYTOIN EXTENDED RELEASE 100 MG CAPSULE PO SCH ×2 (08:27→12:21)
[2016-12-03] MEDS: CALCIUM CARB 600MG /VIT D 1 EACH TABLET PO SCH (08:27)
[2016-12-03] MEDS: CLOPIDOGREL BISULFATE 75 MG TABLET PO SCH (08:27)
[2016-12-03] MEDS: DICLOFENAC SODIUM 25 MG TABLET.DR PO SCH (08:27)
[2016-12-03] MEDS: FERROUS SULFATE (325 MG) 325 MG/TAB TABLET PO SCH (08:27)
[2016-12-03] MEDS: STIOLTO RESPIMAT INH SCH (08:28)
[2016-12-03] MEDS: AMIODARONE HCL 200 MG TABLET PO SCH (08:28)
[2016-12-03 09:33] LABS: BASOPHILS % (MANUAL) 0 % (0.0-2.0); EOSINOPHILS % (MANUAL) 0 % (0-4); LYMPHOCYTES % (MANUAL) 11 % (16-48); MONOCYTES % (MANUAL) 9 % (0-11.0); NEUTROPHILS % (MANUAL) 80 (42-76)
[2016-12-03 09:34] LABS: ANISOCYTOSIS 1+; HYPOCHROMASIA 2+; OVALOCYTES 1+; PLATELET ESTIMATE ADEQUATE
[2016-12-03] MEDS: LIDOCAINE 5% (PATCH) 1 EA PATCH TP SCH (12:21)
[2016-12-03] MEDS ORDERED: K PHOS NEUTRAL 250 MG TABLET PO ONE (14:00)
[2016-12-03] MEDS: LEVOFLOXACIN (750 MG) 750 MG TABLET PO SCH (14:33)
--- NOTE | 2016-12-03 16:38 | NUR ---
RN MS ENDING NOTES EXIT CARE PROVIDED WITH TEACHING AND DC PAPERWORK COMPLETE AND SIGNED, MED RECON GIVEN TO PT, ID BAND REMOVED, PT TOLD TO SPEAK WITH DR LAMAR IN 1 WEEK, LT WRIST 20 G IV SITE REMOVED NO INFILTRATION NOTED, ALL NEEDS MET, ALL DUE MEDS GIVEN, WILL CONTINUE CARE AT HOME.
[2016-12-04] MEDS ORDERED: CYANOCOBALAMIN 1,000 MCG/ML VIAL IM SCH (09:00)
[2016-12-06] MEDS ORDERED: ERGOCALCIFEROL (VITAMIN D 2) 50,000 UNIT CAPSULE PO SCH (09:00)
== END 2016-12-03 17:02 | disposition home or self-care (01) | DRG 460 ==
LOC: ER 13:06 → TELE1 16:45 → TELE-TD 18:16 → TELE1 12-01 10:15 → MEDSG1 12-03 11:18
PROVIDERS: ADMIT Legal Medicine; ATTEND Legal Medicine
PROC: 5A09357 Assistance with Respiratory Ventilation, Less than 24 Consecutive Hours, Continuous Positive Airway Pressure (ICD-10-PCS; principal; 2016-11-29)
DX: N17.9 Acute kidney failure, unspecified (principal); J96.02 Acute respiratory failure with hypercapnia; R65.11 Systemic inflammatory response syndrome (SIRS) of non-infectious origin with acute organ dysfunction; G93.40 Encephalopathy, unspecified; I50.33 Acute on chronic diastolic (congestive) heart failure; J96.11 Chronic respiratory failure with hypoxia; I13.0 Hypertensive heart and chronic kidney disease with heart failure and stage 1 through stage 4 chronic kidney disease, or unspecified chronic kidney disease; J44.1 Chronic obstructive pulmonary disease with (acute) exacerbation; N18.3 Chronic kidney disease, stage 3 (moderate); E66.2 Morbid (severe) obesity with alveolar hypoventilation; E86.0 Dehydration; E87.6 Hypokalemia; F41.9 Anxiety disorder, unspecified; I25.10 Atherosclerotic heart disease of native coronary artery without angina pectoris; I27.2 Other secondary pulmonary hypertension; I95.1 Orthostatic hypotension; J98.11 Atelectasis; K21.9 Gastro-esophageal reflux disease without esophagitis; Z87.891 Personal history of nicotine dependence; Z95.1 Presence of aortocoronary bypass graft; M48.02 Spinal stenosis, cervical region; Z87.11 Personal history of peptic ulcer disease; Z68.32 Body mass index [BMI] 32.0-32.9, adult; D72.829 Elevated white blood cell count, unspecified
CPT/HCPCS: 36415; 36600; 71010-TC; 72125-TC; 80048-TC; 80053-TC; 80076-TC; 83605-TC; 83735-TC; 83880; 84100-TC; 84484-TC; 85025-TC; 85730-TC; 87040-TC; 87081-TC; 94760-TC; 94799-TC; 97001-TC; 97110-TC; 97530-TC; A4606; J1650; J1956; J2060; J2930; J3480; J7030; Z7610

== ENCOUNTER 2016-12-20 22:32 | Inpatient (IN) | payer OTHER, MEDICARE ==
[~2016-12-20] VITALS: Ht 175.3 cm; Wt 95.7 kg
[~2016-12-20 22:32] MED LIST changes: +BISA5TAB10 PO; +CALC1CAP21 PO; +CARI350T27 PO; +CYAN10006 IM; +ERGO500047 PO; -MECL-102 PO; +MECL12.582 PO; +MELO-264 PO; +NITR0.4T SL; +POTA10CA43 PO; -PRED20TA PO; +RANO500T3 PO; +SENN8.6T6 PO; +TIOT4MIS3 IH
--- NOTE | 2016-12-20 22:35 | NUR ---
to bed 1 bib family members c/o midsternal cp x1 hour dredge captain. pt aaox4, place pt on cardaic monitoring, continuous pox, o2@2l/nc. er md at bedside to eval pt with orders received. will carry out orders. pt family members at bedside. skin warm nondiaphoretic. call light within reach.
--- NOTE | 2016-12-20 22:46 | NUR ---
noted pt o2 sat 87% on nasal cannula, notes pt mouth breathing, place pt on simple mask @4L. will continue to monitor pt closely.
[2016-12-20] MEDS ORDERED: IV NS 0.9% 500 ML BAG IV ONE (23:00)
--- NOTE | 2016-12-20 23:17 | NUR ---
PT TRANSPORTED TO RADIOLOGY FOR CT HEAD.
[2016-12-20] MEDS ORDERED: IV NS 0.9% 500 ML IV ONE (23:36)
[2016-12-20] MEDS ORDERED: IV SET PRIMARY 1 EA INFUS.SET MC ONE (23:36)
[2016-12-20 23:38] LABS: BASOPHILS % (AUTO) 0.1 % (0.0-2.0); EOSINOPHILS # (AUTO) 0.2 /CMM (0.0-0.7); EOSINOPHILS % (AUTO) 1.3 % (0.0-6.0); HEMATOCRIT 37 % (39-51); HEMOGLOBIN 11.3 g/dL (13.5-17.5); LYMPHOCYTES # (AUTO) 0.6 /CMM (0.8-4.8); LYMPHOCYTES % (AUTO) 4.9 % (20.0-44.0); MEAN CORPUSCULAR HEMOGLOBIN 22 PG (26.0-33.0); MEAN CORPUSCULAR HGB CONC 30 g/dl (31.0-36.0); MEAN CORPUSCULAR VOLUME 74 fL (80-96); MONOCYTES % (AUTO) 7.7 % (2.0-12.0); NEUTROPHILS # (AUTO) 10.9 /CMM (1.8-8.9); PLATELET COUNT (AUTO) 187 /CMM (150-450); RED BLOOD CELL COUNT(AUTO) 5.03 MIL/uL (4.5-6.0); WHITE BLOOD COUNT (AUTO) 12.7 K/uL (4.3-11.0)
[2016-12-20 23:54] LABS: INR 0.94 (0.87-1.13)
[2016-12-20 23:57] LABS: TROPONIN I < 0.017 ng/mL (0.00-0.056)
[2016-12-21] VITALS (24 sets, daily range): BP systolic 98–135; BP diastolic 43–103
[2016-12-21 00:02] LABS: B-TYPE NATRIURETIC PEPTIDE 344 PG/ML (0-125); CALCIUM, SERUM 8.6 mg/dL (8.5-10.1); CHLORIDE 88 mmol/L (98-107); CREATININE 1.4 mg/dL (0.6-1.3); GLUCOSE 122 mg/dL (74-106); SODIUM SERUM 136 mmol/L (136-145); UREA NITROGEN, BLOOD 44 mg/dL (7-18)
[2016-12-21 00:03] LABS: ALANINE AMINOTRANSFERASE 25 U/L (12-78); ALBUMIN 3.3 g/dL (3.4-5.0); ALCOHOL, BLOOD < 3 mg/dL (0-0); ALKALINE PHOSPHATASE 93 U/L (46-116); ASPARTATE AMINOTRANSFERASE 23 U/L (15-37); BILIRUBIN,DIRECT 0.2 mg/dL (0.0-0.2); BILIRUBIN,TOTAL 0.4 mg/dL (0.2-1.0); TOTAL PROTEIN, SERUM 6.9 g/dL (6.4-8.2)
[2016-12-21 00:07] LABS: LACTIC ACID 1.1 mmol/L (0.4-2.0)
[2016-12-21 00:10] LABS: ACETAMINOPHEN 0 ug/ml (10-30); SALICYLATE 0.9 mg/dL (2.8-20.0)
[2016-12-21 00:17] LABS: CARBON DIOXIDE 56 mmol/L (21-32); POTASSIUM 2.5 mmol/L (3.5-5.1)
[2016-12-21] MEDS ORDERED: IV NS 0.9% 500 ML BAG IV ONE (00:30)
[2016-12-21] MEDS ORDERED: POTASSIUM CHLORIDE 20 MEQ TAB.PRT.SR PO ONE ×3 (00:30→05:30)
[2016-12-21] MEDS ORDERED: POTASSIUM CHLORIDE 10 MEQ/50 ML PREMIXED IVPB FOR PERIPHERAL LINE IV ONE (00:30)
[2016-12-21 00:32] LABS: ABG BASE EXCESS 26.9 mmol/L; ABG OXYGEN SATURATION 93.7 % (92.0-98.5); ABG PCO2 99.6 mmHg (35.0-45.0); ABG PH 7.378 (7.350-7.450); ABG PO2 78.5 mmHg (75.0-100.0); ABG TOTAL HEMOGLOBIN 11.3 G/dL (13.5-18.0); AaDO2 92.2 mmHg; COHb 1.7 % (0.5-1.5); MetHb 0.1 % (0.0-1.5); SITE, ABG Left Radial; VENT MODE, BG SM 5L
[2016-12-21] MEDS ORDERED: IV NS 0.9% 500 ML IV ONE (00:32)
[2016-12-21] MEDS ORDERED: POTASSIUM CL. PREMIX PERIPHER. 50 ML ONE (00:32)
[2016-12-21] MEDS ORDERED: IV SET PRIMARY PUMP SET 1 EA INFUS.SET MC ONE (00:32)
[2016-12-21 00:33] LABS: EOSINOPHILS % (MANUAL) 1 % (0-4); HYPOCHROMASIA 1+; LYMPHOCYTES % (MANUAL) 4 % (16-48); MONOCYTES % (MANUAL) 9 % (0-11.0); NEUTROPHILS % (MANUAL) 86 (42-76); PLATELET ESTIMATE ADEQUATE
--- NOTE | 2016-12-21 00:50 | NUR ---
er spoke to dr. astorga regarding pt admission. will transport pt via acls protocol.
--- NOTE | 2016-12-21 00:51 | NUR ---
potassium 30meq ivpb endorsed to tele suppository molding machine operator irma.
--- NOTE | 2016-12-21 01:15 | NUR ---
PASTRY CHEF NOTES RECEIVED PT FROM THE ER AWAKE, ALERT TO SELF AND VERBALLY RESPONSIVE. NO DISTRESS NOTED. WITH ON AND OFF EPISODES OF AGITATION AND TRYING TO GET OUT OF THE BED. ON 02 @ 4LPM VIA MASK , O2 SAT IS 96 % AT THIS TIME. DTR IN LAW AND SON AT BED SIDE. IV SITE ON 20G INTACT AND PATENT, NO S/S OF INFILTRATION NOTED. COMPLETE BODY ASSESSMENT DONE. ALL NEEDS ATTENDED AND MET, KEPT COMFORTABLE. AFEBRILE. SAFETY PRECAUTIONS OBSERVED, CALL LIGHT WITHIN REACH. WILL CONT TO MONITOR.
[2016-12-21] MEDS ORDERED: SECONDARY IV SET 1 EA INFUS.SET MC ONE ×3 (01:36→10:41)
[2016-12-21] MEDS ORDERED: POTASSIUM CL. PREMIX PERIPHER. 150 ML ONE (02:22)
[2016-12-21] MEDS: POTASSIUM CL. PREMIX PERIPHER. 50 ML IV SCH ×7 (02:29→14:19)
[2016-12-21] MEDS ORDERED: methylPREDNISolone SOD SUCC 125 MG/2ML VIAL ONE (02:43)
[2016-12-21] MEDS: methylPREDNISolone SOD SUCC 125 MG/2ML VIAL IV SCH ×4 (03:18→21:50)
[2016-12-21] MEDS ORDERED: LORAZEPAM 1 MG TABLET PO PRN (03:30)
[2016-12-21] MEDS ORDERED: ALBUTEROL FS 2.5 MG/3 ML VIAL.NEB NEB PRN (03:30)
[2016-12-21] MEDS ORDERED: LORAZEPAM 1 MG TABLET ONE (03:38)
--- NOTE | 2016-12-21 03:45 | NUR ---
RT INFORMED REGARDING PC02 RESULT. PLACED A CALL TO DR. PICHARDO REGARDING PCO2 : 99.6 RESULT THAT WAS TAKEN FROM THE ER, STILL AWAITING FOR A CALL BACK. PT ASLEEP AT THIS TIME, WITH SON AT BEDSIDE.
[2016-12-21] MEDS ORDERED: POTASSIUM CHLORIDE 20 MEQ TAB.PRT.SR PO SCH (05:30)
[2016-12-21] MEDS ORDERED: LEVOFLOXACIN 750 MG /D5W 150ML 150 ML IV ONE (05:38)
--- NOTE | 2016-12-21 05:49 | NUR ---
RECEIVED A CALL BACK FROM DR. PICHARDO. RELAYED PCO2 : 99.6, AND ALSO INFORMED MD THAT PER SON THE PT USES BIPAP AT HOME WHEN HE IS SLEEPING, MD WITH ORDER FOR STAT ABG NOTED AND CARRIED OUT. WILL CONT TO MONITOR.
--- NOTE | 2016-12-21 05:50 | NUR ---
RT AWARE REGARDING ORDER FOR STAT ABG.
[2016-12-21] MEDS: LEVOFLOXACIN 750 MG /D5W 150ML 750 MG in PREMIX 1 EA IV SCH (05:57)
[2016-12-21 06:30] LABS: ABG BASE EXCESS 29.2 mmol/L; ABG OXYGEN SATURATION 93.1 % (92.0-98.5); ABG PCO2 145.8 mmHg (35.0-45.0); ABG PH 7.255 (7.350-7.450); ABG PO2 81.3 mmHg (75.0-100.0); ABG TOTAL HEMOGLOBIN 11.6 G/dL (13.5-18.0); COHb 1.6 % (0.5-1.5); MetHb 0.4 % (0.0-1.5); O2Hb 91.2 % (94.0-97.0); SITE, ABG Right Radial; VENT MODE, BG NC 3L
--- NOTE | 2016-12-21 06:36 | NUR ---
ENDORSED PT AND REPORT GIVEN TO VENTURA ( ICU , RN )
--- NOTE | 2016-12-21 06:45 | NUR ---
TRANSFERRED PT TO ICU PER ACLS PROTOCOL.
[2016-12-21 07:11] LABS: EOSINOPHILS % (AUTO) 0.3 % (0.0-6.0); HEMATOCRIT 37 % (39-51); HEMOGLOBIN 11.2 g/dL (13.5-17.5); LYMPHOCYTES # (AUTO) 0.4 /CMM (0.8-4.8); LYMPHOCYTES % (AUTO) 3.1 % (20.0-44.0); MEAN CORPUSCULAR HEMOGLOBIN 23 PG (26.0-33.0); MEAN CORPUSCULAR HGB CONC 31 g/dl (31.0-36.0); MEAN CORPUSCULAR VOLUME 75 fL (80-96); MONOCYTES # (AUTO) 0.6 /CMM (0.1-1.30); MONOCYTES % (AUTO) 4.3 % (2.0-12.0); NEUTROPHILS # (AUTO) 12.9 /CMM (1.8-8.9); NEUTROPHILS % (AUTO) 92.3 % (43.0-81.0); PLATELET COUNT (AUTO) 183 /CMM (150-450); RED BLOOD CELL COUNT(AUTO) 4.93 MIL/uL (4.5-6.0)
[2016-12-21 07:19] LABS: CANNABINOID, URINE NEGATIVE (NEGATIVE); PHENCYCLIDINE SCREEN,URINE NEGATIVE (NEGATIVE)
--- NOTE | 2016-12-21 07:20 | NUR ---
ICU/RN: PT RECEIVED ON BIPAP, TOLERATING CURRENT SETTINGS, PT A&OX1, RESPONDS TO LIGHT TOUCH, ABLE TO FOLLOW SOME COMMANDS. IV HL FLUSHED, PATENT. ABLE TO VOICE NEEDS FOR URINAL USE. EDUCATED PT AND FAMILY ON INTAKE AND OUTPUT. SAFETY MEASURES IN PLACE. WILL CONT TO MONITOR PT
[2016-12-21] MEDS ORDERED: IPRATROPIUM NEB FS 0.5 MG/2.5 ML AMPUL.NEB NEB SCH (07:35)
[2016-12-21 07:37] LABS: CALCIUM, SERUM 8.4 mg/dL (8.5-10.1); CREATININE 1.4 mg/dL (0.6-1.3); MAGNESIUM 1.8 mg/dL (1.8-2.4); POTASSIUM 3.1 mmol/L (3.5-5.1)
[2016-12-21] MEDS: PANTOPRAZOLE 40 MG TABLET.DR PO SCH (07:56)
--- NOTE | 2016-12-21 08:30 | NUR ---
WOUND CARE CONSULT: PATIENT SEEN AND LIMITED SKIN ASSESSMENT DONE. ICU NURSING STAFF REQUESTED TO HOLD OFF ASSESSMENT OF THE BACK THE PATIENT HAD JUST HAD A RAPID RESPONSE THIS MORNING AND CANNOT BE TURNED AT THIS TIME, STILL UNSTABLE. SEE TODAY'S SKIN ASSESSMENT ALONG WITH RECOMMENDATIONS. RECOMMEND MOISTURE PROTECTION WITH Z GUARD ORDERED, TURN AND REPOSITION EVERY 2 HRS PATIENT CONDITION PERMITS, OFFLOAD HEELS. ALL DISCUSSED WITH NURSING STAFF. WOUND NURSE WITH FOLLOW UP AT A LATER TIME WHEN PATIENT CONDITION PERMITS. MD IN AGREEMENT WITH PLAN OF CARE. Addendum: 12/21/16 at 0836 by ADELFO MCFARLAND WNDNU Amended: Links added.
[2016-12-21] MEDS: ALBUTEROL FS 2.5 MG/3 ML VIAL.NEB NEB SCH ×3 (08:54→20:13)
--- NOTE | 2016-12-21 09:30 | NUR ---
ICU/RN: PT WITH INCREASED ALERTNESS, ATTEMPTS TO REMOVE MASK. PLACED ON O2 VIA NC. EDUCATED PT AND FAMILY.
[2016-12-21] MEDS: ASPIRIN 325 MG TABLET PO SCH (10:41)
[2016-12-21] MEDS: Z GUARD REMEDY 2 OZ OINT TP PRN (10:45)
[2016-12-21] MEDS: CLOTRIMAZOLE 1% 15 GM TUBE TP SCH ×2 (10:46→18:03)
[2016-12-21] MEDS: Z GUARD REMEDY 2 OZ OINT TP SCH ×2 (10:46→17:20)
[2016-12-21] MEDS: MELOXICAM 7.5 MG TABLET PO SCH (10:56)
[2016-12-21] MEDS ORDERED: SENNOSIDES 8.6 MG TABLET PO PRN (11:00)
[2016-12-21] MEDS ORDERED: MECLIZINE HCL 12.5 MG TABLET PO PRN (11:00)
[2016-12-21] MEDS ORDERED: IPRATROPIUM BROMIDE 0.06% 15 ML NASPR NS SCH (11:00)
[2016-12-21] MEDS ORDERED: BISACODYL (5 MG) 5 MG TABLET.DR PO PRN (11:00)
[2016-12-21] MEDS ORDERED: ALBUTEROL SULFATE 8 GM HFA.AER.AD IH PRN (11:00)
[2016-12-21] MEDS ORDERED: METOLAZONE 5 MG TABLET PO SCH (11:00)
[2016-12-21] MEDS ORDERED: NITROGLYCERIN 0.4 MG/TAB BOTTLE SL PRN (11:00)
[2016-12-21] MEDS: FERROUS SULFATE (325 MG) 325 MG/TAB TABLET PO SCH (11:46)
[2016-12-21] MEDS: POTASSIUM CHLORIDE 10 MEQ TABLET.SA PO SCH (11:46)
[2016-12-21] MEDS: SPIRONOLACTONE 25 MG TABLET PO SCH (11:46)
[2016-12-21] MEDS: CALCIUM CARB 600MG /VIT D 1 EACH TABLET PO SCH (11:46)
[2016-12-21] MEDS: TAMSULOSIN 0.4 MG CAP.SR.24H PO SCH (11:46)
[2016-12-21] MEDS: CLOPIDOGREL BISULFATE 75 MG TABLET PO SCH (11:47)
[2016-12-21] MEDS: PHENYTOIN EXTENDED RELEASE 100 MG CAPSULE PO SCH ×2 (12:21→17:00)
--- NOTE | 2016-12-21 12:21 | NUR ---
ICU/RN: PO MEDS HELD; PT LETHARGIC. AT RISK FOR ASPIRATION.
[2016-12-21] MEDS: IPRATROPIUM BROMIDE 0.06% 15 ML NASPR NS SCH ×3 (12:30→21:53)
[2016-12-21] MEDS: IPRATROPIUM NEB FS 0.5 MG/2.5 ML AMPUL.NEB NEB SCH ×2 (13:57→20:13)
--- NOTE | 2016-12-21 14:45 | NUR ---
ICU/RN: HYGIENIC CARE RENDERED, PT WITH PERIODS OF DESATURATION IN LOW 80'S WITH TURNING AND REPOSITIONING. HOB KEPT ELEVATED FOR EASE OF BREATHING.
[2016-12-21] MEDS: AMIODARONE HCL 200 MG TABLET PO SCH (17:00)
[2016-12-21] MEDS: FLUTICASONE/SALMETEROL DISKUS IH SCH (17:22)
[2016-12-21] MEDS: FUROSEMIDE 40 MG TABLET PO SCH (18:03)
--- NOTE | 2016-12-21 19:18 | NUR ---
ICU/RN: PT RESTING IN BED COMFORTABLY, NEEDS REORIENTATION, SHOWS S/S . BREATHING EVEN AND UNLABORED ON O2 VIA NC 3L/MIN. FALL PRECAUTIONS IN PLACE. CARE ENDORSED TO PM RN FOR DARLENE.
--- NOTE | 2016-12-21 19:45 | NUR ---
ICU/LEAK PATCHER RECEIVED REPORT FROM DAY NURSE. PT IS ALERT X2, WITH PERIODS OF FORGETFULNESS, AND POSSIBLE SUN DOWNERS. BED ALARM IS ON. PT IS ON O2 3 LITERS VIA N/C WITH SATURATION 89-90. PT IS SR WITH BBB ON THE MONITOR. PT HAS NO F/C. PT HAS SCD'S. PT HAS MANY SKIN ISSUES THAT ARE ADDRESSED ON THE FLOW SHEET. PT HAS PICC LINE TO LEFT UPPER ARM. CALL LIGHT WITHIN REACH, PT CURRENTLY DENIES PAIN. FAMILY AT BEDSIDE TO HELP TRANSLATE.
--- NOTE | 2016-12-21 20:00 | NUR ---
ICU/PAINTER INTERIOR FINISH PT LOOKED IF HE WAS HAVING TROUBLE BREATHING, A LITTLE LABORED. PT'S SKIN WAS HOT AND SWEATY. PT APPEARED TO BECOME VERY RESTLESS. PT PLACED ON BIPAP, WITH RATE OF 20/5, R 20, 35%. WILL CONTINUE TO MONITOR THIS PT.
--- NOTE | 2016-12-21 21:20 | NUR ---
ICU/ELECTROLOG OPERATOR PT APPEARS CALM, NO MORE RESTLESS BEHAVIOR. SATURATION UP TO 94%. BLOOD PRESSURE IS WITHIN NORMAL 110'S. FAMILY REQUESTED TO STAY AT BEDSIDE, DUE TO LANGUAGE BARRIER, TO HELP CALM PT. AGREED TO LET THE FAMILY STAY TONIGHT.
[2016-12-21] MEDS ORDERED: IV NS 0.9% 250 ML IV ONE (21:54)
--- NOTE | 2016-12-21 22:00 | NUR ---
ICU/SAP TREASURY CONSULTANT UNABLE TO SCAN THE NASAL SPRAY MEDICATION. IT APPEARS IF THE MEDICATION WAS REVISED BY MD HOWEVER NO NEW LABEL WAS MADE FOR THIS REVISION OF ORDERS. WILL NOTIFY PHARMACY IN MORNING ABOUT THIS.
[2016-12-22] VITALS (36 sets, daily range): BP systolic 88–146; BP diastolic 43–84
[2016-12-22] MEDS: RANOLAZINE 500 MG PO SCH ×3 (01:06→17:19)
--- NOTE | 2016-12-22 01:16 | NUR ---
RT PT PLACED ON BIPAP WITH NOTED SETTING DUE TO INCREASED WORK OF BREATHING AND LOW SPO2. PT TOLERATING BIPAP SETTING WELL. NO SOB OR DISTRESS NOTED WHILE ON BIPAP. Addendum: 12/22/16 at 0118 by RYDER SMYTH RT Amended: Links added.
--- NOTE | 2016-12-22 01:45 | NUR ---
ICU/AIR COMPRESSOR OPERATOR PT HAS DIAPER ON, SO THAT HE CAN SLEEP THROUGH THE NIGHT, THIS WAS CHANGED. ALSO AT THIS TIME ORAL CARE GIVEN DUE TO THE BIPAP, AND THE CONSTANT AIR BEING FORCED INTO MOUTH. PT TOLERATED THIS WELL. SATURATION CONTINUES TO BE 90-94%. CALL LIGHT WITHIN REACH. PT APPEARS TO BE COMFORTABLE, NO ACUTE RESPIRATORY DISTRESS SEEN.
--- NOTE | 2016-12-22 02:15 | NUR ---
ICU/WINDOW MACHINE OPERATOR PT'S WAS GIVEN A BATH, TOLERATED THIS WELL. PT REMAINS ON CURRENT BIPAP SETTINGS, SATURATION IS 90-94%. PT CURRENTLY DENIES PAIN, CALL LIGHT WITHIN REACH. FAMILY MEMBER AT BEDSIDE.
[2016-12-22] MEDS: LEVOFLOXACIN 750 MG /D5W 150ML 750 MG in PREMIX 1 EA IV SCH (04:49)
[2016-12-22] MEDS: methylPREDNISolone SOD SUCC 125 MG/2ML VIAL IV SCH (04:49)
[2016-12-22 05:58] LABS: CALCIUM, SERUM 8.7 mg/dL (8.5-10.1); CHLORIDE 91 mmol/L (98-107); CREATININE 1.1 mg/dL (0.6-1.3); GLUCOSE 175 mg/dL (74-106); POTASSIUM 3.3 mmol/L (3.5-5.1); SODIUM SERUM 139 mmol/L (136-145); UREA NITROGEN, BLOOD 27 mg/dL (7-18)
--- NOTE | 2016-12-22 06:10 | NUR ---
ICU/LABORER LANDSCAPE PT WAS CHANGED, AND CLEANED UP FOR NEXT SHIFT. AT THIS TIME ORAL CARE GIVEN DUE TO THE BIPAP, AND THE CONSTANT AIR BEING FORCED INTO MOUTH. PT TOLERATED THIS WELL. SATURATION IS 90-94%. CALL LIGHT WITHIN REACH. PT APPEARS TO BE COMFORTABLE, NO ACUTE RESPIRATORY DISTRESS SEEN.
[2016-12-22 06:20] LABS: CARBON DIOXIDE 54 mmol/L (21-32)
--- NOTE | 2016-12-22 07:15 | NUR ---
ICU/RN: PT RECEIVED ON BIPAP, TOLERATING ORDERED SETTINGS, BREATHING EVEN AND UNLABORED, EASY TO AROUSE. KEVIN MIDLINE, FLUSHED, PATENT WITH GOOD BLOOD RETURN. BILAT HEELS OFFLOADED. WOUND AND FALL PREVENTION MEASURES IN PLACE. ALARM SOUNDS AUDIBLE. WILL CONT TO MONITOR
[2016-12-22] MEDS: ALBUTEROL FS 2.5 MG/3 ML VIAL.NEB NEB SCH ×3 (07:34→19:49)
[2016-12-22] MEDS: IPRATROPIUM NEB FS 0.5 MG/2.5 ML AMPUL.NEB NEB SCH ×3 (07:34→19:49)
[2016-12-22 07:38] LABS: HEMATOCRIT 36 % (39-51); HEMOGLOBIN 10.9 g/dL (13.5-17.5); LYMPHOCYTES # (AUTO) 0.3 /CMM (0.8-4.8); LYMPHOCYTES % (AUTO) 2.3 % (20.0-44.0); MEAN CORPUSCULAR HEMOGLOBIN 22 PG (26.0-33.0); MEAN CORPUSCULAR HGB CONC 30 g/dl (31.0-36.0); MEAN CORPUSCULAR VOLUME 74 fL (80-96); MONOCYTES # (AUTO) 0.3 /CMM (0.1-1.30); MONOCYTES % (AUTO) 2.4 % (2.0-12.0); NEUTROPHILS # (AUTO) 10.7 /CMM (1.8-8.9); NEUTROPHILS % (AUTO) 95.3 % (43.0-81.0); PLATELET COUNT (AUTO) 197 /CMM (150-450); RED BLOOD CELL COUNT(AUTO) 4.85 MIL/uL (4.5-6.0); WHITE BLOOD COUNT (AUTO) 11.3 K/uL (4.3-11.0)
[2016-12-22] MEDS: CLOTRIMAZOLE 1% 15 GM TUBE TP SCH ×2 (08:00→17:22)
--- NOTE | 2016-12-22 08:00 | NUR ---
ICU/RN: PT OFF BIPAP; PLACED ON O2 2L/MIN VIA NC; WILL TITRATE TO KEEP SPO2 WITHIN PARAMETERS. SOB NOTED ON EXERTION, TURNING AND REPOSITIONING. FAMILY UPDATED. TOLERATED PO MEDS WITHOUT S/S ASPIRATION. SAFETY MEASURES IN PLACE. WILL CONT TO MONITOR PT STATUS.
[2016-12-22] MEDS: CLOPIDOGREL BISULFATE 75 MG TABLET PO SCH (08:01)
[2016-12-22] MEDS: POTASSIUM CHLORIDE 10 MEQ TABLET.SA PO SCH (08:01)
[2016-12-22] MEDS: MELOXICAM 7.5 MG TABLET PO SCH (08:01)
[2016-12-22] MEDS: PANTOPRAZOLE 40 MG TABLET.DR PO SCH (08:01)
[2016-12-22] MEDS: ASPIRIN 325 MG TABLET PO SCH (08:01)
[2016-12-22] MEDS: METOLAZONE 2.5 MG TABLET PO SCH (08:01)
[2016-12-22] MEDS: PHENYTOIN EXTENDED RELEASE 100 MG CAPSULE PO SCH ×3 (08:02→17:17)
[2016-12-22] MEDS: FERROUS SULFATE (325 MG) 325 MG/TAB TABLET PO SCH (08:02)
[2016-12-22] MEDS: CALCIUM CARB 600MG /VIT D 1 EACH TABLET PO SCH (08:02)
[2016-12-22] MEDS: SPIRONOLACTONE 25 MG TABLET PO SCH (08:02)
[2016-12-22] MEDS: TAMSULOSIN 0.4 MG CAP.SR.24H PO SCH (08:02)
[2016-12-22] MEDS: AMIODARONE HCL 200 MG TABLET PO SCH ×2 (08:03→17:17)
[2016-12-22] MEDS: IPRATROPIUM BROMIDE 0.06% 15 ML NASPR NS SCH ×4 (08:03→21:00)
[2016-12-22] MEDS: Z GUARD REMEDY 2 OZ OINT TP SCH ×2 (08:04→17:17)
[2016-12-22] MEDS: FLUTICASONE/SALMETEROL DISKUS IH SCH ×2 (08:04→17:18)
--- NOTE | 2016-12-22 08:13 | NUR ---
WOUND CARE CONSULT FOLLOW UP FOR SKIN ASSESSMENT OF THE BACK. PATIENT ALERT AND AWAKE, ON CANDACE ISOFLEX THEO BED, INCONTINENT, ABLE TO TURN AND REPOSITION HOWEVER WITH SOBOE, NEEDS ASSIST AND PROMPTING. FAMILY AT BEDSIDE. SEE TODAY'S SKIN ASSESSMENT ALONG WITH RECOMMENDATIONS. RECOMMEND CONTINUE WITH SKIN PROTECTION AND PRESSURE PREVENTION MEASURES ORDERED. ALL DISCUSSED WITH NURSING STAFF. MD IN AGREEMENT WITH PLAN OF CARE.
--- NOTE | 2016-12-22 08:50 | NUR ---
ICU/RN: DR PICHARDO AT THE BEDSIDE; UPDATED ON PT STATUS, LABS REVIEWED. POC DW FAMILY. IN AGREEMENT WITH POC. NEW ORDERS NOTED AND CARRIED OUT.
[2016-12-22] MEDS: CYANOCOBALAMIN 1,000 MCG/ML VIAL IM SCH (09:46)
[2016-12-22] MEDS: methylPREDNISolone SOD SUCC 40 MG/ML VIAL IV SCH ×2 (09:47→21:42)
[2016-12-22 10:03] LABS: ANISOCYTOSIS 1+; BAND % (MANUAL) 2 % (0.0-5.0); HYPOCHROMASIA 1+; MONOCYTES % (MANUAL) 1 % (0-11.0); NEUTROPHILS % (MANUAL) 97 (42-76); PLATELET ESTIMATE ADEQUATE
[2016-12-22 10:16] LABS: ABG BASE EXCESS 22.1 mmol/L; ABG OXYGEN SATURATION 89.3 % (92.0-98.5); ABG PCO2 64.3 mmHg (35.0-45.0); ABG PH 7.499 (7.350-7.450); ABG PO2 55.5 mmHg (75.0-100.0); ABG TOTAL HEMOGLOBIN 12.1 G/dL (13.5-18.0); AaDO2 119.3 mmHg; COHb 1.8 % (0.5-1.5); MetHb 0.5 % (0.0-1.5); O2Hb 87.2 % (94.0-97.0); SITE, ABG Left Radial; VENT MODE, BG VENTI MASK 35%
[2016-12-22] MEDS ORDERED: IV SET PRIMARY PUMP SET 1 EA INFUS.SET MC ONE (11:43)
[2016-12-22] MEDS ORDERED: POTASSIUM CHLORIDE 20 MEQ TAB.PRT.SR PO ONE (13:30)
--- NOTE | 2016-12-22 15:00 | NUR ---
ICU/RN: BED BATH RENDERED; BLANCHING SACRAL REDNESS NOTED. OFFLOADED. TURNED AND REPOSITIONED. Z-GUARD APPLIED TO AFFECTED AREAS.
[2016-12-22] MEDS: FUROSEMIDE 40 MG TABLET PO SCH (17:17)
--- NOTE | 2016-12-22 17:30 | NUR ---
ICU/RN: DR GOLDBERG AT THE BEDSIDE, UPDATED ON PT STATUS. PER MD, NO FC INDICATED. CONT CURRENT TX.
--- NOTE | 2016-12-22 19:26 | NUR ---
ICU/RN: PT SITTING IN BED, NO S/S ACUTE DISTRESS, BREATHING EVEN AND UNLABORED. TOLERATED DINNER WELL, ATE 75% OF MEAL. KEVIN ML PATENT AND INTACT. CARE ENDORSED TO PM RN FOR DARLENE.
[2016-12-23] VITALS (41 sets, daily range): BP systolic 90–157; BP diastolic 33–86
--- NOTE | 2016-12-23 01:55 | NUR ---
REFRIGERATION UNIT REPAIRER - REC'D REPORT FROM JOSH Marte REC'D PT. W/DAUGHTER AT BS. PT.IS A&OX3, PRIMARILY SPEAKS 5 LANGUAGES. FOLLOWS SIMPLE,VERBAL COMMANDS. SBP'S ARE WNL. HEART MONITOR SHOWS SR W/BBB. PT. IS DIAPERED. URINATED X 1 THIS SHIFT. PT. IS TOLERATING A MECHANICAL SOFT DIET W/LITTLE ASSISTANCE.ALL PULSES PALPABLE. PT. REQUESTED TO START BIPAP AT 20:00 LAST NIGHT. SETTINGS AT I:E=20/5,RATE=20 & 35%. PT. IS RESTING W/EYES CLOSED/SNORING. CONT.POC.
[2016-12-23 04:37] LABS: HEMATOCRIT 38 % (39-51); HEMOGLOBIN 11.2 g/dL (13.5-17.5); LYMPHOCYTES # (AUTO) 0.5 /CMM (0.8-4.8); LYMPHOCYTES % (AUTO) 4.5 % (20.0-44.0); MEAN CORPUSCULAR HEMOGLOBIN 22 PG (26.0-33.0); MEAN CORPUSCULAR HGB CONC 30 g/dl (31.0-36.0); MEAN CORPUSCULAR VOLUME 73 fL (80-96); MONOCYTES # (AUTO) 0.7 /CMM (0.1-1.30); MONOCYTES % (AUTO) 6.8 % (2.0-12.0); NEUTROPHILS # (AUTO) 9.3 /CMM (1.8-8.9); NEUTROPHILS % (AUTO) 88.7 % (43.0-81.0); PLATELET COUNT (AUTO) 217 /CMM (150-450); RED BLOOD CELL COUNT(AUTO) 5.14 MIL/uL (4.5-6.0); WHITE BLOOD COUNT (AUTO) 10.5 K/uL (4.3-11.0)
[2016-12-23] MEDS: LEVOFLOXACIN 750 MG /D5W 150ML 750 MG in PREMIX 1 EA IV SCH (04:44)
[2016-12-23] MEDS: IV NS 0.9% 250 ML IV PRN (04:44)
[2016-12-23 05:20] LABS: CALCIUM, SERUM 8.9 mg/dL (8.5-10.1); CREATININE 1.4 mg/dL (0.6-1.3); MAGNESIUM 1.4 mg/dL (1.8-2.4); PHOSPHORUS 2.2 mg/dL (2.5-4.9); POTASSIUM 3.4 mmol/L (3.5-5.1)
[2016-12-23 06:30] LABS: ANISOCYTOSIS 2+; BAND % (MANUAL) 1 % (0.0-5.0); EOSINOPHILS % (MANUAL) 1 % (0-4); HYPOCHROMASIA 1+; LYMPHOCYTES % (MANUAL) 8 % (16-48); MONOCYTES % (MANUAL) 7 % (0-11.0); NEUTROPHILS % (MANUAL) 83 (42-76); PLATELET ESTIMATE ADEQUATE
[2016-12-23] MEDS: PANTOPRAZOLE 40 MG TABLET.DR PO SCH (06:56)
[2016-12-23] MEDS: ALBUTEROL FS 2.5 MG/3 ML VIAL.NEB NEB SCH ×3 (07:35→20:19)
[2016-12-23] MEDS: IPRATROPIUM NEB FS 0.5 MG/2.5 ML AMPUL.NEB NEB SCH ×3 (07:35→20:19)
--- NOTE | 2016-12-23 07:45 | NUR ---
MARINE CONSULTANT: pt.is A/Ox2, rest, can follow commands, needy, on Bipap over night, CO2 48, SR/pacing occas.(long t perm pacemaker by family inf), SBP over 100 below 140, voids, no c/o now, no pain, K+ 3.4, getting Lasix, K+ PO qd, edema max1+, O2 sat. WNL
[2016-12-23] MEDS: SPIRONOLACTONE 25 MG TABLET PO SCH (09:04)
[2016-12-23] MEDS: ASPIRIN 325 MG TABLET PO SCH (09:04)
[2016-12-23] MEDS: MELOXICAM 7.5 MG TABLET PO SCH (09:04)
[2016-12-23] MEDS: FLUTICASONE/SALMETEROL DISKUS IH SCH ×2 (09:04→16:30)
[2016-12-23] MEDS: PHENYTOIN EXTENDED RELEASE 100 MG CAPSULE PO SCH ×3 (09:04→16:30)
[2016-12-23] MEDS: FERROUS SULFATE (325 MG) 325 MG/TAB TABLET PO SCH (09:04)
[2016-12-23] MEDS: CLOPIDOGREL BISULFATE 75 MG TABLET PO SCH (09:04)
[2016-12-23] MEDS: TAMSULOSIN 0.4 MG CAP.SR.24H PO SCH (09:04)
[2016-12-23] MEDS: CALCIUM CARB 600MG /VIT D 1 EACH TABLET PO SCH (09:04)
[2016-12-23] MEDS: methylPREDNISolone SOD SUCC 40 MG/ML VIAL IV SCH ×2 (09:05→21:10)
[2016-12-23] MEDS: METOLAZONE 2.5 MG TABLET PO SCH (09:05)
[2016-12-23] MEDS: POTASSIUM CHLORIDE 10 MEQ TABLET.SA PO SCH (09:05)
[2016-12-23] MEDS: AMIODARONE HCL 200 MG TABLET PO SCH ×2 (09:05→16:31)
[2016-12-23] MEDS: IPRATROPIUM BROMIDE 0.06% 15 ML NASPR NS SCH ×4 (09:07→21:30)
[2016-12-23] MEDS: RANOLAZINE 500 MG PO SCH ×2 (09:08→16:30)
[2016-12-23] MEDS: CLOTRIMAZOLE 1% 15 GM TUBE TP SCH ×2 (09:14→16:31)
[2016-12-23] MEDS: Z GUARD REMEDY 2 OZ OINT TP PRN (09:14)
[2016-12-23] MEDS: Z GUARD REMEDY 2 OZ OINT TP SCH ×2 (09:15→16:32)
--- NOTE | 2016-12-23 10:00 | NUR ---
HEAD COOK: pt.is on 3L O2 n/c since 00, O2 sat. 91-95%, no c/o now
[2016-12-23] MEDS ORDERED: POTASSIUM CHLORIDE 20 MEQ POWDER PACKET PO SCH (11:00)
--- NOTE | 2016-12-23 11:00 | NUR ---
BLOW PIT OPERATOR: is in room, updated with pt.current condition, VS, O2 sat. on O2 n/c since 08.00, CO2 48, pt.was on Bipap over nigh, I/O, meds, see new orders
[2016-12-23] MEDS ORDERED: SECONDARY IV SET 1 EA INFUS.SET MC ONE (11:55)
[2016-12-23] MEDS: Magnesium 1GM/D5W 100ML PREMIX 100 ML IV SCH ×4 (11:58→15:29)
--- NOTE | 2016-12-23 13:10 | NUR ---
ARABIC TEACHER: Marlen Ayers, FILTER CLEANER is in room, spoke with pr.family, updated with pt.current condition, VS, Tx/meds, I/O, Bipap over nights, O2 sat. with N/c, resp.Tx, e-lytes replacement, see new orders
--- NOTE | 2016-12-23 13:45 | NUR ---
OUT AND OUT CIGAR MAKER HAND: notified RT re resp.Tx/Armen BAXTER orders. Pt.was encouraged to take more water by Marlen Ayers, VEE state.
[2016-12-23] MEDS: ACETYLCYSTEINE 20% SOLN 800 MG/4 ML VIAL NEB SCH ×3 (14:02→23:40)
[2016-12-23] MEDS ORDERED: K PHOS NEUTRAL 250 MG TABLET PO ONE (15:00)
[2016-12-23] MEDS: FUROSEMIDE 40 MG TABLET PO SCH (17:27)
--- NOTE | 2016-12-23 17:55 | NUR ---
LEGISLATORS: pt.is A/Ox3, no pain, on 3L O2 n/c, O2 sat. 91-94%, SR, SBP over 100, resp.Tx done, PM/skin care done, family is in room
--- NOTE | 2016-12-23 21:55 | NUR ---
PLACED ON BIPAP. RN NOTIFIED
[2016-12-23] MEDS: ALBUTEROL FS 2.5 MG/3 ML VIAL.NEB NEB PRN (23:40)
[2016-12-24] VITALS (32 sets, daily range): BP systolic 95–151; BP diastolic 50–88
--- NOTE | 2016-12-24 03:49 | NUR ---
REC'D PT. UPON SOS, ON O2/3L/NC. PT. WAS SWITCHED TO BIPAP AT 21:45. PT'S AT BS. PT. IS WEARING ADULT DIAPER FOR URINARY INC. PT. WAS CHANGED TWICE. PT.IS RECEIVING GOOD SLEEP TONIGHT. EASILY AROUSABLE. DENIES PAIN. NO S/S OF DISTRESS. PT. HAS AICD TO LEFT UPPER C/W. HEART MONITOR SHOWS SR/WITH BBB. 70'S. SBP'S ARE IN THE LOW 100'S TO 130'S. CONT. POC.
[2016-12-24 05:04] LABS: BASOPHILS % (AUTO) 0.1 % (0.0-2.0); HEMATOCRIT 38 % (39-51); HEMOGLOBIN 11.6 g/dL (13.5-17.5); LYMPHOCYTES # (AUTO) 0.6 /CMM (0.8-4.8); LYMPHOCYTES % (AUTO) 6.5 % (20.0-44.0); MEAN CORPUSCULAR HEMOGLOBIN 23 PG (26.0-33.0); MEAN CORPUSCULAR HGB CONC 31 g/dl (31.0-36.0); MEAN CORPUSCULAR VOLUME 74 fL (80-96); MONOCYTES # (AUTO) 0.8 /CMM (0.1-1.30); MONOCYTES % (AUTO) 9.6 % (2.0-12.0); NEUTROPHILS # (AUTO) 7.3 /CMM (1.8-8.9); NEUTROPHILS % (AUTO) 83.8 % (43.0-81.0); PLATELET COUNT (AUTO) 249 /CMM (150-450); RDW COEFFICIENT OF VARIATION 17.5 (11.5-15.0); RED BLOOD CELL COUNT(AUTO) 5.15 MIL/uL (4.5-6.0); WHITE BLOOD COUNT (AUTO) 8.7 K/uL (4.3-11.0)
[2016-12-24 05:18] LABS: CALCIUM, SERUM 9.1 mg/dL (8.5-10.1); CREATININE 1.3 mg/dL (0.6-1.3); MAGNESIUM 1.9 mg/dL (1.8-2.4); PHOSPHORUS 3.5 mg/dL (2.5-4.9); POTASSIUM 3.1 mmol/L (3.5-5.1)
[2016-12-24] MEDS: LEVOFLOXACIN 750 MG /D5W 150ML 750 MG in PREMIX 1 EA IV SCH (05:43)
[2016-12-24] MEDS: IV NS 0.9% 250 ML IV PRN (05:45)
--- NOTE | 2016-12-24 06:36 | NUR ---
PT OFF BIPAP PLACED ON 3L NC. RN NOTIFIED.
[2016-12-24] MEDS: ACETYLCYSTEINE 20% SOLN 800 MG/4 ML VIAL NEB SCH ×2 (06:54→15:30)
[2016-12-24] MEDS: ALBUTEROL FS 2.5 MG/3 ML VIAL.NEB NEB SCH ×4 (06:54→20:38)
[2016-12-24] MEDS: IPRATROPIUM NEB FS 0.5 MG/2.5 ML AMPUL.NEB NEB SCH ×4 (06:54→20:38)
[2016-12-24 07:13] LABS: ANISOCYTOSIS 1+; LYMPHOCYTES % (MANUAL) 10 % (16-48); MONOCYTES % (MANUAL) 8 % (0-11.0); NEUTROPHILS % (MANUAL) 82 (42-76); PLATELET ESTIMATE ADEQUATE
--- NOTE | 2016-12-24 08:00 | NUR ---
INITIAL MAIL DISTRIBUTOR NOTE RCVD PT AWAKE AND ALERT SHOWING NO S/O DISTRESS OR C/O PAIN. SR ON TELE. TOLERATING O2 VIA NC. VOIDING TO DIAPER WHICH IS DRY. IV SITES C/D/I/PATENT. NO S/O INFILTRATION OR PHLEBITIS OBERVED UPON FLUSHING. PT'S FAMILY AT BEDSIDE. WILL CONTINUE TO MONITOR PT FOR SAFETY AND COMFORT. CALL LIGHT WITHIN REACH. BED IN LOW AND LOCKED POSITION.
[2016-12-24] MEDS: PANTOPRAZOLE 40 MG TABLET.DR PO SCH (08:23)
[2016-12-24] MEDS: FLUTICASONE/SALMETEROL DISKUS IH SCH ×2 (08:23→16:48)
[2016-12-24] MEDS: METOLAZONE 2.5 MG TABLET PO SCH (08:24)
[2016-12-24] MEDS: ASPIRIN 325 MG TABLET PO SCH (08:24)
[2016-12-24] MEDS: methylPREDNISolone SOD SUCC 40 MG/ML VIAL IV SCH ×2 (08:24→20:50)
[2016-12-24] MEDS: CLOPIDOGREL BISULFATE 75 MG TABLET PO SCH (08:24)
[2016-12-24] MEDS: TAMSULOSIN 0.4 MG CAP.SR.24H PO SCH (08:24)
[2016-12-24] MEDS: SPIRONOLACTONE 25 MG TABLET PO SCH (08:24)
[2016-12-24] MEDS: FERROUS SULFATE (325 MG) 325 MG/TAB TABLET PO SCH (08:24)
[2016-12-24] MEDS: MELOXICAM 7.5 MG TABLET PO SCH (08:24)
[2016-12-24] MEDS: PHENYTOIN EXTENDED RELEASE 100 MG CAPSULE PO SCH ×3 (08:24→16:48)
[2016-12-24] MEDS: POTASSIUM CHLORIDE 10 MEQ TABLET.SA PO SCH (08:24)
[2016-12-24] MEDS: CALCIUM CARB 600MG /VIT D 1 EACH TABLET PO SCH (08:24)
[2016-12-24] MEDS: AMIODARONE HCL 200 MG TABLET PO SCH ×2 (08:25→16:48)
[2016-12-24] MEDS: RANOLAZINE 500 MG PO SCH ×2 (08:25→16:48)
[2016-12-24] MEDS: CLOTRIMAZOLE 1% 15 GM TUBE TP SCH ×2 (08:25→16:51)
[2016-12-24] MEDS: Z GUARD REMEDY 2 OZ OINT TP SCH ×2 (08:26→16:50)
[2016-12-24] MEDS: IPRATROPIUM BROMIDE 0.06% 15 ML NASPR NS SCH ×4 (10:00→20:52)
[2016-12-24] MEDS: POTASSIUM CHLORIDE 20 MEQ POWDER PACKET PO SCH ×2 (10:55→12:22)
[2016-12-24] MEDS: DOCUSATE SODIUM 100 MG CAPSULE PO PRN (12:22)
--- NOTE | 2016-12-24 12:44 | NUR ---
ROOM COOLER INSTALLER NOTE PT AWAKE AND ALERT, C/O SOB AFTER BREATHING TX PROVIDED BY RT. SATURATION OF 93% ON 4L NC. PT DIAPHORETIC. RT CALLED PT PLACED BACK ON BIPAP. WILL CONTINUE TO MONITOR.
[2016-12-24] MEDS ORDERED: FUROSEMIDE 20 MG/2 ML VIAL IV ONE (15:30)
[2016-12-24] MEDS: ALBUTEROL FS 2.5 MG/3 ML VIAL.NEB NEB PRN (16:31)
[2016-12-24] MEDS: IPRATROPIUM NEB FS 0.5 MG/2.5 ML AMPUL.NEB NEB PRN (16:31)
[2016-12-24] MEDS: FUROSEMIDE 40 MG TABLET PO SCH (17:14)
--- NOTE | 2016-12-24 18:20 | NUR ---
CLEAN UP SUPERVISOR NOTE PT AWAKE AND ALERT, FAMILY AT BEDSIDE SHOWING NO S/O DISTRESS OR C/O PAIN AT THIS TIME. SR ON TELE MONITOR. TOLERATING O2 VIA NC. VOIDING TO DIAPER. IV SITES C/D/I/PATENT. NO S/O INFILTRATION OR PHLEBITIS OBSERVED UPON FLUSHING. PT'S CARE WILL BE ENDORSED TO STAINLESS STEEL FINISHER RN FOR CONTINUITY OF CARE AT CHANGE OF SHIFT.
[2016-12-25] VITALS (31 sets, daily range): BP systolic 101–151; BP diastolic 50–96
[2016-12-25] MEDS: ACETYLCYSTEINE 20% SOLN 800 MG/4 ML VIAL NEB SCH ×4 (00:19→23:01)
[2016-12-25 04:41] LABS: HEMATOCRIT 41 % (39-51); HEMOGLOBIN 12.5 g/dL (13.5-17.5); LYMPHOCYTES # (AUTO) 0.6 /CMM (0.8-4.8); LYMPHOCYTES % (AUTO) 6.6 % (20.0-44.0); MEAN CORPUSCULAR HEMOGLOBIN 22 PG (26.0-33.0); MEAN CORPUSCULAR HGB CONC 30 g/dl (31.0-36.0); MEAN CORPUSCULAR VOLUME 73 fL (80-96); MONOCYTES # (AUTO) 0.6 /CMM (0.1-1.30); MONOCYTES % (AUTO) 6.7 % (2.0-12.0); NEUTROPHILS # (AUTO) 8.3 /CMM (1.8-8.9); NEUTROPHILS % (AUTO) 86.7 % (43.0-81.0); PLATELET COUNT (AUTO) 286 /CMM (150-450); RDW COEFFICIENT OF VARIATION 17.3 (11.5-15.0); RED BLOOD CELL COUNT(AUTO) 5.65 MIL/uL (4.5-6.0); WHITE BLOOD COUNT (AUTO) 9.6 K/uL (4.3-11.0)
[2016-12-25 05:00] LABS: CALCIUM, SERUM 9.1 mg/dL (8.5-10.1); CREATININE 1.5 mg/dL (0.6-1.3); MAGNESIUM 1.4 mg/dL (1.8-2.4); PHOSPHORUS 4.2 mg/dL (2.5-4.9); POTASSIUM 3.1 mmol/L (3.5-5.1)
[2016-12-25] MEDS: IV NS 0.9% 250 ML IV PRN ×2 (05:46→05:55)
[2016-12-25 05:47] LABS: HYPOCHROMASIA 1+; LYMPHOCYTES % (MANUAL) 7 % (16-48); MONOCYTES % (MANUAL) 7 % (0-11.0); NEUTROPHILS % (MANUAL) 86 (42-76); PLATELET ESTIMATE ADEQUATE
[2016-12-25] MEDS: LEVOFLOXACIN (750 MG) 750 MG TABLET PO SCH (05:47)
--- NOTE | 2016-12-25 06:00 | NUR ---
INTERIOR SPECIALIST - PT. IS A PLEASANT MICRONESIAN-[place] SPEAKING MALE WHO WAS PLACED ON BIPAP AT 20:45 LAST NIGHT. I:E-20/01, RATE OF 20 & 35%. PT.IS WEARING AN ADULT DIAPER & URINATED A TOTAL OF 4 TIMES. DIAPER IS EXTREMELY SOAKED THRU. PT'S SON AT BS. ASSISTING W/INTERPRETATION. SKIN PICS TAKEN & DOCUMENTED IN CHART. AFEBRILE. 0.9%NS AT TKO. INFUSING TO LUE MIDLINE. ALL PORTS PATENT TO FLUSH. PT. ATTEMPTED TO USE BEDPAN FOR BM, BUT FAILED. +BS'S X 4 QUADRANTS. HEART MONITOR SHOWS SBP'S IN THE LOW 100'S-TEENS, HR/ 60-80'S W/PVC'S. ASYMPTOMATIC. REPORT ADD - RESSED TO STEVEN Marte CONT. POC.
[2016-12-25] MEDS: ALBUTEROL FS 2.5 MG/3 ML VIAL.NEB NEB SCH ×3 (07:40→20:07)
[2016-12-25] MEDS: IPRATROPIUM NEB FS 0.5 MG/2.5 ML AMPUL.NEB NEB SCH ×3 (07:40→20:07)
--- NOTE | 2016-12-25 07:49 | NUR ---
INITIAL PLASTIC WELDER NOTE RCVD PT ON BIPAP SLEEPING SHOWING NO S/O DISTRESS OR PAIN. PT AROUSED TO TOUCH NOW ALERT AND AWAKE. SR ON TELE WITH OCCASIONAL PACING SPIKES. PT PLACED ON 4L VIA NC BY RT. VOIDING TO DIAPER WHICH IS DRY AT THIS TIME. TOLERATING DIET WELL. IV SITES C/D/I/PATENT. NO S/O INFILTRATION OR PHLEBITIS OBSERVED UPON FLUSHING. WILL CONTINUE TO MONITOR PT FOR SAFETY AND COMFORT. CALL LIGHT WITHIN REACH. BED IN LOW AND LOCKED POSITION.
[2016-12-25] MEDS: FLUTICASONE/SALMETEROL DISKUS IH SCH ×2 (08:18→17:00)
[2016-12-25] MEDS: methylPREDNISolone SOD SUCC 40 MG/ML VIAL IV SCH ×2 (08:18→20:04)
[2016-12-25] MEDS: TAMSULOSIN 0.4 MG CAP.SR.24H PO SCH (08:19)
[2016-12-25] MEDS: PHENYTOIN EXTENDED RELEASE 100 MG CAPSULE PO SCH ×3 (08:19→17:01)
[2016-12-25] MEDS: POTASSIUM CHLORIDE 10 MEQ TABLET.SA PO SCH (08:19)
[2016-12-25] MEDS: CALCIUM CARB 600MG /VIT D 1 EACH TABLET PO SCH (08:19)
[2016-12-25] MEDS: CLOPIDOGREL BISULFATE 75 MG TABLET PO SCH (08:19)
[2016-12-25] MEDS: AMIODARONE HCL 200 MG TABLET PO SCH ×2 (08:19→17:01)
[2016-12-25] MEDS: SPIRONOLACTONE 25 MG TABLET PO SCH (08:19)
[2016-12-25] MEDS: RANOLAZINE 500 MG PO SCH ×2 (08:19→17:01)
[2016-12-25] MEDS: PANTOPRAZOLE 40 MG TABLET.DR PO SCH (08:19)
[2016-12-25] MEDS: IPRATROPIUM BROMIDE 0.06% 15 ML NASPR NS SCH ×4 (08:20→20:06)
[2016-12-25] MEDS: ASPIRIN 325 MG TABLET PO SCH (08:20)
[2016-12-25] MEDS: MELOXICAM 7.5 MG TABLET PO SCH (08:20)
[2016-12-25] MEDS: METOLAZONE 2.5 MG TABLET PO SCH (08:20)
[2016-12-25] MEDS: Z GUARD REMEDY 2 OZ OINT TP SCH ×2 (08:20→17:02)
[2016-12-25] MEDS: FERROUS SULFATE (325 MG) 325 MG/TAB TABLET PO SCH (08:20)
[2016-12-25] MEDS: CLOTRIMAZOLE 1% 15 GM TUBE TP SCH ×2 (08:21→17:01)
[2016-12-25] MEDS ORDERED: ERGOCALCIFEROL (VITAMIN D 2) 50,000 UNIT CAPSULE PO SCH (09:00)
[2016-12-25] MEDS ORDERED: MAGNESIUM CITRATE 296 ML BOTTLE PO ONE (09:00)
[2016-12-25] MEDS ORDERED: POTASSIUM CHLORIDE 20 MEQ POWDER PACKET PO SCH (11:00)
[2016-12-25] MEDS: Magnesium 1GM/D5W 100ML PREMIX 100 ML IV SCH ×2 (11:30→12:37)
[2016-12-25] MEDS ORDERED: POTASSIUM CHLORIDE 20 MEQ POWDER PACKET PO ONE (11:30)
--- NOTE | 2016-12-25 11:37 | NUR ---
HAND [place] FOOD MAKER NOTE PT FEELING SOB REQUESTING BREATHING TX. RT CALLED INTO THE ROOM. PT PLACED BACK ON BIPAP. PT APPEARS COMFORTABLE IN NO DISTRESS. RESTING IN BED. WILL CONTINUE TO MONITOR.
[2016-12-25] MEDS ORDERED: IV SET PRIMARY PUMP SET 1 EA INFUS.SET MC ONE (11:43)
[2016-12-25] MEDS: DOCUSATE SODIUM 100 MG CAPSULE PO PRN (12:36)
--- NOTE | 2016-12-25 14:17 | NUR ---
PHONE TRIAGE SPECIALIST NOTE PT TRANSFERRED TO [facility] NO DIZZINESS REPORTED. VITAL SIGNS STABLE. PT'S SON AT BEDSIDE. WILL CONTINUE TO MONITOR.
--- NOTE | 2016-12-25 15:21 | NUR ---
HOURLY CAREGIVER NOTE PT RETURNED TO BED, VITAL SIGNS STABLE, NO DIZZINESS REPORTED. PT'S AT BEDSIDE. WILL CONTINUE TO MONITOR.
[2016-12-25] MEDS: FUROSEMIDE 40 MG TABLET PO SCH (17:01)
[2016-12-25 17:34] LABS: ABG BASE EXCESS 16.4 mmol/L; ABG OXYGEN SATURATION 90.7 % (92.0-98.5); ABG PCO2 62.1 mmHg (35.0-45.0); ABG PH 7.463 (7.350-7.450); ABG PO2 63.8 mmHg (75.0-100.0); ABG TOTAL HEMOGLOBIN 14.2 G/dL (13.5-18.0); AaDO2 120.8 mmHg; COHb 1.3 % (0.5-1.5); O2Hb 89.5 % (94.0-97.0); SITE, ABG Left Radial
--- NOTE | 2016-12-25 18:11 | NUR ---
ENDING FIRE EXTINGUISHER REPAIRER INSPECTOR NOTE PT AWAKE AND ALERT SHOWING NO S/O DISTRESS OR C/O PAIN VERBALIZED. SR ON TELE. CONTINUES TO TOLERATE O2 VIA NC. VOIDING TO DIAPER. ABLE TO TRANSFER TO [facility] WITH ONE PERSON ASSIST. IV SITES REMAIN C/D/I/PATENT. PT'S CARE WILL BE ENDORSED TO NEUROPHYSIOLOGIST RN AT CHANGE OF SHIFT. CALL LIGHT WITHIN REACH. BED IN LOW AND LOCKED POSITION. FAMILY AT BEDSIDE.
--- NOTE | 2016-12-25 20:00 | NUR ---
MARKETING ANALYTICS ANALYST - NOTES - RECEIVED PT IN ON 4L NC SHOWING NO S/S OF DISTRESS OR PAIN. PT AWAKE, ALERT TAMAZIGHT SPEAKING. SR ON TELE WITH OCCASIONAL PACING SPIKES. VOIDING IN DIAPER WHICH IS DRY AT THIS TIME. TOLERATING DIET WELL. HUGH MIDLINE AND R HAND 20G SITES C/D/I/PATENT. NO S/O INFILTRATION OR PHLEBITIS OBSERVED UPON FLUSHING. WILL CONTINUE TO MONITOR PT FOR SAFETY AND COMFORT. CALL LIGHT WITHIN REACH. BED IN LOW AND LOCKED POSITION.
--- NOTE | 2016-12-25 20:20 | NUR ---
PT PLACED ON BIPAP
[2016-12-26] VITALS (20 sets, daily range): BP systolic 103–140; BP diastolic 49–81
[2016-12-26 05:04] LABS: HEMATOCRIT 41 % (39-51); HEMOGLOBIN 12.6 g/dL (13.5-17.5); LYMPHOCYTES # (AUTO) 0.7 /CMM (0.8-4.8); LYMPHOCYTES % (AUTO) 6.1 % (20.0-44.0); MEAN CORPUSCULAR HEMOGLOBIN 23 PG (26.0-33.0); MEAN CORPUSCULAR HGB CONC 31 g/dl (31.0-36.0); MEAN CORPUSCULAR VOLUME 74 fL (80-96); MONOCYTES # (AUTO) 0.9 /CMM (0.1-1.30); MONOCYTES % (AUTO) 7.3 % (2.0-12.0); NEUTROPHILS # (AUTO) 10.6 /CMM (1.8-8.9); NEUTROPHILS % (AUTO) 86.6 % (43.0-81.0); PLATELET COUNT (AUTO) 296 /CMM (150-450); RDW COEFFICIENT OF VARIATION 16.9 (11.5-15.0); RED BLOOD CELL COUNT(AUTO) 5.59 MIL/uL (4.5-6.0); WHITE BLOOD COUNT (AUTO) 12.3 K/uL (4.3-11.0)
[2016-12-26 05:22] LABS: CALCIUM, SERUM 9.4 mg/dL (8.5-10.1); CREATININE 1.5 mg/dL (0.6-1.3); MAGNESIUM 2.3 mg/dL (1.8-2.4); POTASSIUM 3.2 mmol/L (3.5-5.1)
[2016-12-26 05:49] LABS: LYMPHOCYTES % (MANUAL) 6 % (16-48); MONOCYTES % (MANUAL) 10 % (0-11.0); NEUTROPHILS % (MANUAL) 84 (42-76); PLATELET ESTIMATE ADEQUATE
[2016-12-26] MEDS: LEVOFLOXACIN (750 MG) 750 MG TABLET PO SCH (05:54)
--- NOTE | 2016-12-26 07:40 | NUR ---
ICU/RN INITIAL NOTES,AM RECEIVED REPORT FROM NIGHT NURSE. PT ON BIPAP WITH SETTINGS ORDERED. TOLERATING WELL, NO ACUTE DISTRESS NOTED. PT ALERT, AWAKE, ORIENTED, FOLLOWS COMMANDS. MAKES NEEDS KNOWN. PT SINUS ON TELE, WITH OCCASIONAL PACING. PIV AND MIDLINE PATENT AND INTACT, NO S/S OF INFECTION OR INFILTRATION NOTED. PT ON DIAPER. WILL CONTINUE TO TURN AND REPOSITION. ALL SAFETY MEASURES TAKEN, BED IN LOW POSITION, SIDE RAILS UP, CALL LIGHT WITHIN REACH.
[2016-12-26] MEDS: FERROUS SULFATE (325 MG) 325 MG/TAB TABLET PO SCH (08:16)
[2016-12-26] MEDS: ASPIRIN 325 MG TABLET PO SCH (08:16)
[2016-12-26] MEDS: CLOPIDOGREL BISULFATE 75 MG TABLET PO SCH (08:16)
[2016-12-26] MEDS: methylPREDNISolone SOD SUCC 40 MG/ML VIAL IV SCH ×2 (08:16→20:22)
[2016-12-26] MEDS: TAMSULOSIN 0.4 MG CAP.SR.24H PO SCH (08:16)
[2016-12-26] MEDS: PANTOPRAZOLE 40 MG TABLET.DR PO SCH (08:16)
[2016-12-26] MEDS: POTASSIUM CHLORIDE 10 MEQ TABLET.SA PO SCH (08:16)
[2016-12-26] MEDS: PHENYTOIN EXTENDED RELEASE 100 MG CAPSULE PO SCH ×3 (08:16→16:20)
[2016-12-26] MEDS: CALCIUM CARB 600MG /VIT D 1 EACH TABLET PO SCH (08:17)
[2016-12-26] MEDS: MELOXICAM 7.5 MG TABLET PO SCH (08:17)
[2016-12-26] MEDS: SPIRONOLACTONE 25 MG TABLET PO SCH (08:18)
[2016-12-26] MEDS: FLUTICASONE/SALMETEROL DISKUS IH SCH ×2 (08:18→16:23)
[2016-12-26] MEDS: RANOLAZINE 500 MG PO SCH ×2 (08:18→16:21)
[2016-12-26] MEDS: AMIODARONE HCL 200 MG TABLET PO SCH ×2 (08:19→16:21)
[2016-12-26] MEDS: CLOTRIMAZOLE 1% 15 GM TUBE TP SCH ×2 (08:19→16:22)
[2016-12-26] MEDS: Z GUARD REMEDY 2 OZ OINT TP SCH ×2 (08:20→16:22)
[2016-12-26] MEDS: IPRATROPIUM BROMIDE 0.06% 15 ML NASPR NS SCH ×4 (08:20→20:22)
[2016-12-26] MEDS: ACETYLCYSTEINE 20% SOLN 800 MG/4 ML VIAL NEB SCH (08:21)
[2016-12-26] MEDS: ALBUTEROL FS 2.5 MG/3 ML VIAL.NEB NEB SCH ×3 (08:22→19:56)
[2016-12-26] MEDS: IPRATROPIUM NEB FS 0.5 MG/2.5 ML AMPUL.NEB NEB SCH ×3 (08:22→19:56)
[2016-12-26] MEDS: METOLAZONE 2.5 MG TABLET PO SCH (09:30)
--- NOTE | 2016-12-26 10:30 | NUR ---
ICU/RN: PT OUT OF BED TO BEDSIDE COMMODE. VSS. NO ISSUES NOTED.
[2016-12-26] MEDS: POTASSIUM CHLORIDE 20 MEQ TAB.PRT.SR PO SCH (10:49)
[2016-12-26] MEDS: LIDOCAINE 5% (PATCH) 1 EA PATCH TP SCH (13:09)
--- NOTE | 2016-12-26 15:30 | NUR ---
ICU/RN: ORDERS FOR TRANSFER RECEIVED. REPORT ENDORSED TO LEXI NGUYEN. PT TRANSFERRED VIA BED PER ACLS GUIDELINES. ALL NEEDS MET. PT CLEAN AND DRY. OF PT AT BEDSIDE. ALL BELONGINGS SENT WITH PT.
[2016-12-26] MEDS: FUROSEMIDE 40 MG TABLET PO SCH (17:39)
--- NOTE | 2016-12-26 19:30 | NUR ---
RN INITIAL NOTES RECEIVED PT AWAKE ON BED, FAMILY AT BEDSIDE. A/O X3, CUBAN SPEAKING ONLY. ON 4L NASAL CANNULA, SATURATING WELL, NO S/S OF RESP DISTRESS. CURRENTLY SR ON THE MONITOR, HR 80'S. ON DIAPERS ONLY, PREFERS TO USE BEDSIDE COMMODE NEEDED. LEFT UPPER ARM MIDLINE FLUSHED AND PATENT, NO S/S OF INFILTRATION/INFECTION, DRESSING CDI. RIGHT HAND 20G IS LEAKING, WILL REMOVE. BED LOW AND LOCKED, SIDERAILS UP, CALL LIGHT WITHIN REACH. WILL MONITOR
[2016-12-27] VITALS (7 sets, daily range): BP systolic 113–125; BP diastolic 53–72
[2016-12-27] MEDS: LEVOFLOXACIN (750 MG) 750 MG TABLET PO SCH (05:04)
[2016-12-27 07:07] LABS: CALCIUM, SERUM 9.5 mg/dL (8.5-10.1); CREATININE 1.7 mg/dL (0.6-1.3); POTASSIUM 3.3 mmol/L (3.5-5.1)
--- NOTE | 2016-12-27 07:20 | NUR ---
RN INITIAL NOTES: Rec'd pt awake on bedside chair, not in any distress, A/O x3-4, Icelandic/ Greenlandic speaking. Pt on O2 at 4 lpm/ NC, no SOB, saturating at 94%. On telemonitor, SR w/ HR 73 bpm. Pt has KEVIN midline, SL, flushed, patent & intact w/ no signs of infection/ infiltration noted. Call light placed w/in reach. Bed kept low & in locked position. Provided comfort measures. Needs attended. Will continue to monitor.
[2016-12-27 07:22] LABS: EOSINOPHILS # (AUTO) 0.1 /CMM (0.0-0.7); EOSINOPHILS % (AUTO) 0.5 % (0.0-6.0); HEMOGLOBIN 12.7 g/dL (13.5-17.5); LYMPHOCYTES # (AUTO) 1.1 /CMM (0.8-4.8); LYMPHOCYTES % (AUTO) 8.2 % (20.0-44.0); MEAN CORPUSCULAR HEMOGLOBIN 22 PG (26.0-33.0); MEAN CORPUSCULAR HGB CONC 30 g/dl (31.0-36.0); MEAN CORPUSCULAR VOLUME 75 fL (80-96); MONOCYTES # (AUTO) 0.9 /CMM (0.1-1.30); MONOCYTES % (AUTO) 6.5 % (2.0-12.0); NEUTROPHILS # (AUTO) 11.2 /CMM (1.8-8.9); NEUTROPHILS % (AUTO) 84.8 % (43.0-81.0); PLATELET COUNT (AUTO) 323 /CMM (150-450); RDW COEFFICIENT OF VARIATION 16.9 (11.5-15.0); RED BLOOD CELL COUNT(AUTO) 5.74 MIL/uL (4.5-6.0); WHITE BLOOD COUNT (AUTO) 13.2 K/uL (4.3-11.0)
[2016-12-27 07:48] LABS: HEMATOCRIT 43 % (39-51)
[2016-12-27] MEDS: ALBUTEROL FS 2.5 MG/3 ML VIAL.NEB NEB SCH ×3 (07:55→20:05)
[2016-12-27] MEDS: IPRATROPIUM NEB FS 0.5 MG/2.5 ML AMPUL.NEB NEB SCH ×3 (07:55→20:05)
[2016-12-27] MEDS: CLOPIDOGREL BISULFATE 75 MG TABLET PO SCH (08:26)
[2016-12-27] MEDS: POTASSIUM CHLORIDE 20 MEQ TAB.PRT.SR PO SCH (08:26)
[2016-12-27] MEDS: AMIODARONE HCL 200 MG TABLET PO SCH ×2 (08:26→16:40)
[2016-12-27] MEDS: METOLAZONE 2.5 MG TABLET PO SCH (08:27)
[2016-12-27] MEDS: RANOLAZINE 500 MG PO SCH ×2 (08:27→16:40)
[2016-12-27] MEDS: FERROUS SULFATE (325 MG) 325 MG/TAB TABLET PO SCH (08:27)
[2016-12-27] MEDS: CALCIUM CARB 600MG /VIT D 1 EACH TABLET PO SCH (08:27)
[2016-12-27] MEDS: SPIRONOLACTONE 25 MG TABLET PO SCH (08:27)
[2016-12-27] MEDS: methylPREDNISolone SOD SUCC 40 MG/ML VIAL IV SCH ×2 (08:27→21:05)
[2016-12-27] MEDS: ASPIRIN 325 MG TABLET PO SCH (08:27)
[2016-12-27] MEDS: PANTOPRAZOLE 40 MG TABLET.DR PO SCH (08:27)
[2016-12-27] MEDS: TAMSULOSIN 0.4 MG CAP.SR.24H PO SCH (08:27)
[2016-12-27] MEDS: PHENYTOIN EXTENDED RELEASE 100 MG CAPSULE PO SCH ×3 (08:27→16:40)
[2016-12-27] MEDS: FLUTICASONE/SALMETEROL DISKUS IH SCH ×2 (08:28→16:41)
[2016-12-27] MEDS: CLOTRIMAZOLE 1% 15 GM TUBE TP SCH ×2 (08:30→16:41)
[2016-12-27] MEDS: IPRATROPIUM BROMIDE 0.06% 15 ML NASPR NS SCH ×4 (08:30→21:05)
--- NOTE | 2016-12-27 08:30 | NUR ---
RN NOTES: Pt seen & examined by Dr. Hartley. Family at bedside.
[2016-12-27] MEDS: Z GUARD REMEDY 2 OZ OINT TP SCH ×2 (08:31→16:41)
[2016-12-27 08:47] LABS: EOSINOPHILS % (MANUAL) 1 % (0-4); LYMPHOCYTES % (MANUAL) 9 % (16-48); MONOCYTES % (MANUAL) 6 % (0-11.0); NEUTROPHILS % (MANUAL) 84 (42-76)
[2016-12-27 08:48] LABS: HYPOCHROMASIA 1+
--- NOTE | 2016-12-27 09:30 | NUR ---
RN NOTES: PT eval done. As per therapist Kaitlynn, pt can ambulate 65 ft w/ Ever.
[2016-12-27] MEDS: MELOXICAM 7.5 MG TABLET PO SCH (10:02)
[2016-12-27] MEDS: IPRATROPIUM NEB FS 0.5 MG/2.5 ML AMPUL.NEB NEB PRN (11:26)
[2016-12-27] MEDS: ALBUTEROL FS 2.5 MG/3 ML VIAL.NEB NEB PRN (11:27)
--- NOTE | 2016-12-27 12:00 | NUR ---
RN NOTES: Pt seen & examined by Dr. Quinones. made aware of low potassium, said okay to give scheduled potassium tablet (40 meq) for now).
[2016-12-27] MEDS: LIDOCAINE 5% (PATCH) 1 EA PATCH TP SCH (12:46)
[2016-12-27] MEDS: FUROSEMIDE 40 MG TABLET PO SCH (17:46)
--- NOTE | 2016-12-27 19:27 | NUR ---
RN CLOSING NOTES: NO acute changes noted w/in shift. No SOB, No LOC. KEVIN midline kept patent & intact w/ no signs of infection/ infiltration noted. Call light placed w/in reach. Bed kept low & in locked position. Kept comfortable and rested. Needs attended. Endorsed to PM RN.
--- NOTE | 2016-12-27 19:30 | NUR ---
COMMERCIAL LOAN UNDERWRITER INITIAL NOTE RECEIVED REPORT MAULIK ELLIOTT. PT IN BED. FAMILY AT BEDSIDE. FAMILY HAS CONCERN REGARDING PT REFUSING BIPAP AT NIGHT. FAMILY WOULD LIKE TO STAY OVER NIGHT. INSTRUCTED FAMILY THEY CAN STAY BUT IT IS NOT NECESSARY. PT IS A/A/O X3-4. LUNG SOUNDS DIMINISHED. BOWEL SOUNDS PRESENT. IV PATENT AND INTACT. PT WAS TRANSFERRED TO ALIRIO CHAIR, PER PT HE IS MORE COMFORTABLE IN THE RECLINING CHAIR. INSTRUCTED PT ABOUT THE BENEFITS OF BIPAP AT NIGHT, PT AGREED TO USE BIPAP. ALIRIO CHAIR LOCKED. CALL LIGHT WITHIN REACH. WILL CONTINUE TO MONITOR.
[2016-12-27] MEDS: CARISOPRODOL 350 MG TABLET PO PRN (21:57)
[2016-12-28] VITALS: BP 106/59
[2016-12-28 04:00] VITALS: BP 103/62
[2016-12-28] MEDS: LEVOFLOXACIN (750 MG) 750 MG TABLET PO SCH (06:15)
--- NOTE | 2016-12-28 07:00 | NUR ---
Received Pt in Sheree chair able to verbalize needs.no c/o pain,no s/s of distress.Breathing 4lpm via n.c.safety measures in place.bed in low and lock position.will continue to monitor for changes.
[2016-12-28] MEDS: ALBUTEROL FS 2.5 MG/3 ML VIAL.NEB NEB SCH ×3 (07:17→20:20)
[2016-12-28] MEDS: IPRATROPIUM NEB FS 0.5 MG/2.5 ML AMPUL.NEB NEB SCH ×3 (07:17→20:20)
[2016-12-28 08:00] VITALS: BP_SYST 116; BP_SYST 134; BP_DIAS 48; BP_DIAS 75
[2016-12-28] MEDS: MELOXICAM 7.5 MG TABLET PO SCH (08:42)
[2016-12-28] MEDS: PANTOPRAZOLE 40 MG TABLET.DR PO SCH (08:42)
[2016-12-28] MEDS: ASPIRIN 325 MG TABLET PO SCH (08:42)
[2016-12-28] MEDS: methylPREDNISolone SOD SUCC 40 MG/ML VIAL IV SCH (08:42)
[2016-12-28] MEDS: POTASSIUM CHLORIDE 20 MEQ TAB.PRT.SR PO SCH (08:42)
[2016-12-28] MEDS: PHENYTOIN EXTENDED RELEASE 100 MG CAPSULE PO SCH ×3 (08:43→17:13)
[2016-12-28] MEDS: FERROUS SULFATE (325 MG) 325 MG/TAB TABLET PO SCH (08:43)
[2016-12-28] MEDS: TAMSULOSIN 0.4 MG CAP.SR.24H PO SCH (08:43)
[2016-12-28] MEDS: CALCIUM CARB 600MG /VIT D 1 EACH TABLET PO SCH (08:43)
[2016-12-28] MEDS: AMIODARONE HCL 200 MG TABLET PO SCH ×2 (08:43→17:13)
[2016-12-28] MEDS: SPIRONOLACTONE 25 MG TABLET PO SCH (08:44)
[2016-12-28] MEDS: METOLAZONE 2.5 MG TABLET PO SCH (08:46)
[2016-12-28] MEDS: CLOPIDOGREL BISULFATE 75 MG TABLET PO SCH (08:54)
[2016-12-28] MEDS: RANOLAZINE 500 MG PO SCH ×2 (08:55→17:14)
[2016-12-28] MEDS: Z GUARD REMEDY 2 OZ OINT TP SCH ×2 (09:00→17:14)
[2016-12-28] MEDS: IPRATROPIUM BROMIDE 0.06% 15 ML NASPR NS SCH ×4 (09:00→21:00)
[2016-12-28] MEDS ORDERED: POTASSIUM CHLORIDE 10 MEQ TABLET.SA PO ONE ×2 (09:00→21:00)
[2016-12-28] MEDS: FLUTICASONE/SALMETEROL DISKUS IH SCH ×2 (09:00→17:00)
[2016-12-28] MEDS: CLOTRIMAZOLE 1% 15 GM TUBE TP SCH ×2 (09:00→17:14)
[2016-12-28 12:00] VITALS: BP_SYST 99; BP_DIAS 48; BP_DIAS 56
[2016-12-28] MEDS: predniSONE 20 MG TABLET PO SCH (12:58)
[2016-12-28] MEDS: LIDOCAINE 5% (PATCH) 1 EA PATCH TP SCH (13:11)
[2016-12-28 16:00] VITALS: BP 122/72
[2016-12-28] MEDS: FUROSEMIDE 40 MG TABLET PO SCH (17:13)
[2016-12-28 20:00] VITALS: BP 103/56
--- NOTE | 2016-12-28 20:00 | NUR ---
RN INITIAL NOTE; PT ON THE ALIRIO CHAIR WITHOUT ANY DISTRESS , BREATHING EVEN AND UNLABORED ON 4 LPM VIA NC , SR 70s ON TELE MONITOR , KEVIN MIDLINE INTACT AND PATENT , DENIED ANY PAIN AT THIS TIME , FAMILY AT THE BED SITE , INCONTINENT TO BLADDER/BOWEL. BED IN THE LOWEST/LOCKED POSITION , SAFETY MEASURES APPLIED, CALL LIGHT WITHIN REACH . WILL CONTINUE TO MONITOR
--- NOTE | 2016-12-28 22:30 | NUR ---
RN NOTE; PT ON NIGHT TIME BIPAP AT THIS TIME , NO ANY RESPIRATORY DISTRESS NOTED AT THIS TIME, WILL CONTINUE TO MONITOR
[2016-12-29] VITALS: BP 111/67
[2016-12-29] MEDS: CARISOPRODOL 350 MG TABLET PO PRN (00:07)
[2016-12-29 04:00] VITALS: BP 125/77
[2016-12-29] MEDS: LEVOFLOXACIN (750 MG) 750 MG TABLET PO SCH (06:02)
--- NOTE | 2016-12-29 06:56 | NUR ---
RN EOS NOTE; PT REMAINED STABLE DURING THE SHIFT, SLEPT WELL . IV SITE INTACT AND PATENT .ALL MEDS TOLERATED WELL, PRN SOMA 325 MG GIVEN FOR PAIN ,TOLERATED WELL. KEPT CLEAN AND DRY ,ALL NEEDS ATTENDED PROMPTLY, CALL LIGHT WITHIN REACH. WILL ENDORSE TO NEXT SHIFT RN FOR CONTINUITY OF CARE.
[2016-12-29 07:18] LABS: CALCIUM, SERUM 8.5 mg/dL (8.5-10.1); CREATININE 1.4 mg/dL (0.6-1.3)
[2016-12-29 07:26] LABS: POTASSIUM 2.8 mmol/L (3.5-5.1)
[2016-12-29] MEDS: ALBUTEROL FS 2.5 MG/3 ML VIAL.NEB NEB SCH (07:47)
[2016-12-29] MEDS: IPRATROPIUM NEB FS 0.5 MG/2.5 ML AMPUL.NEB NEB SCH (07:47)
[2016-12-29 08:00] VITALS: BP 93/56
--- NOTE | 2016-12-29 08:00 | NUR ---
TELE1/RN AM SHIFT INITIAL NOTES RECEIVED PT AWAKE SITTING IN CHAIR. NO ACUTE CHANGE OF CONDITION NOTED. PT A/OX 3 DENIES PAIN AT THJIS TIME. ON 4L O2 VIA N/C SATURATING @ 94%, LUNG SOUNDS RHONCHI. ON TELE WITH SINUS RHYTHM, HR 68 WITH PVCs. IV SITE FLUSHED, PATENT WITH NO S/S OF INFECTION. HL. PT IS COMFORTABLE AT THIS TIME. SCHEDULED AM MEDS TO BE GIVEN. CL WITHIN REACHED AND SAFETY MAINTAINED. ON GOING MONITORING.
[2016-12-29] MEDS: FLUTICASONE/SALMETEROL DISKUS IH SCH (08:54)
[2016-12-29] MEDS: PHENYTOIN EXTENDED RELEASE 100 MG CAPSULE PO SCH (08:55)
[2016-12-29] MEDS: TAMSULOSIN 0.4 MG CAP.SR.24H PO SCH (08:55)
[2016-12-29] MEDS: RANOLAZINE 500 MG PO SCH (08:55)
[2016-12-29] MEDS: CLOPIDOGREL BISULFATE 75 MG TABLET PO SCH (08:55)
[2016-12-29] MEDS: predniSONE 20 MG TABLET PO SCH (08:55)
[2016-12-29] MEDS: MELOXICAM 7.5 MG TABLET PO SCH (08:55)
[2016-12-29 08:56] VITALS: BP 93/56
[2016-12-29] MEDS: METOLAZONE 2.5 MG TABLET PO SCH (08:56)
[2016-12-29] MEDS: ASPIRIN 325 MG TABLET PO SCH (08:56)
[2016-12-29] MEDS: AMIODARONE HCL 200 MG TABLET PO SCH (08:56)
[2016-12-29] MEDS: POTASSIUM CHLORIDE 20 MEQ TAB.PRT.SR PO SCH (08:57)
[2016-12-29] MEDS: PANTOPRAZOLE 40 MG TABLET.DR PO SCH (08:57)
[2016-12-29] MEDS: FERROUS SULFATE (325 MG) 325 MG/TAB TABLET PO SCH (08:57)
[2016-12-29] MEDS: DOCUSATE SODIUM 100 MG CAPSULE PO PRN (08:57)
[2016-12-29] MEDS: SPIRONOLACTONE 25 MG TABLET PO SCH (08:57)
[2016-12-29] MEDS: CALCIUM CARB 600MG /VIT D 1 EACH TABLET PO SCH (08:57)
[2016-12-29] MEDS: CYANOCOBALAMIN 1,000 MCG/ML VIAL IM SCH (08:57)
[2016-12-29] MEDS: Z GUARD REMEDY 2 OZ OINT TP SCH (08:58)
[2016-12-29] MEDS: CLOTRIMAZOLE 1% 15 GM TUBE TP SCH (08:58)
--- NOTE | 2016-12-29 12:00 | NUR ---
MS1/PRESCHOOL DISABILITY TEACHER - HOME DISCHARGE INSTRUCTIONS GIVEN TO PT'S SON. VERBALIZED UNDERSTANDING. DISCHARGE DOCUMENTS AND PERSONAL BELONGINGS RETURNED TO PT, INVENTORY LOG SIGNED OFF. ID BAND AND IV SITE REMOVED, PRESSURE DRESSING APPLIED. PT LEFT VIA WHEELCHAIR ACCOMPANIED BY FAMILY MEMBERS IN STABLE CONDITION TO AN AWAITING PRIVATE CAR.
== END 2016-12-29 12:00 | disposition home health service (06) | DRG 133 ==
LOC: ER 22:34 → TELE 12-21 00:04 → ICU 12-21 06:51 → TELE1 12-26 15:46 → TELE-TD 12-26 15:49 → TELE1 12-27 09:07 → MEDSG1 12-29 09:02
PROVIDERS: ADMIT Legal Medicine; ATTEND Legal Medicine
PROC: 05H633Z Insertion of Infusion Device into Left Subclavian Vein, Percutaneous Approach (ICD-10-PCS; principal; 2016-12-21)
PROC: 5A09457 Assistance with Respiratory Ventilation, 24-96 Consecutive Hours, Continuous Positive Airway Pressure (ICD-10-PCS; 2016-12-22)
PROC: 5A09357 Assistance with Respiratory Ventilation, Less than 24 Consecutive Hours, Continuous Positive Airway Pressure (ICD-10-PCS; 2016-12-26)
DX: J96.02 Acute respiratory failure with hypercapnia (principal); N17.0 Acute kidney failure with tubular necrosis; J15.9 Unspecified bacterial pneumonia; I50.43 Acute on chronic combined systolic (congestive) and diastolic (congestive) heart failure; E87.2 Acidosis; D68.59 Other primary thrombophilia; J44.0 Chronic obstructive pulmonary disease with (acute) lower respiratory infection; I13.0 Hypertensive heart and chronic kidney disease with heart failure and stage 1 through stage 4 chronic kidney disease, or unspecified chronic kidney disease; E44.1 Mild protein-calorie malnutrition; J44.1 Chronic obstructive pulmonary disease with (acute) exacerbation; J98.11 Atelectasis; Z95.1 Presence of aortocoronary bypass graft; E87.6 Hypokalemia; K21.9 Gastro-esophageal reflux disease without esophagitis; D72.829 Elevated white blood cell count, unspecified; N18.9 Chronic kidney disease, unspecified; E66.2 Morbid (severe) obesity with alveolar hypoventilation; E83.42 Hypomagnesemia; I48.91 Unspecified atrial fibrillation; Z91.19 Patient's noncompliance with other medical treatment and regimen; Z87.891 Personal history of nicotine dependence; F41.9 Anxiety disorder, unspecified; K59.00 Constipation, unspecified; Z99.81 Dependence on supplemental oxygen
CPT/HCPCS: 36415; 36569; 36600; 70450-TC; 71010-TC; 80048-TC; 80076-TC; 80305; 82962-TC; 83605-TC; 83735-TC; 83880; 84100-TC; 84484-TC; 85025-TC; 85730-TC; 87040-TC; 94760-TC; 94799-TC; 97001-TC; 97116-TC; 97530-TC; A4216; A4606; G0480; G6039-TC; J1940; J1956; J2920; J2930; J3420; J3475; J3480; J7040; J7050; Z7610

== ENCOUNTER 2017-01-07 19:47 | Inpatient (IN) | payer OTHER, MEDICARE ==
[~2017-01-07] VITALS: Ht 175.3 cm; Wt 98.9 kg
--- NOTE | 2017-01-07 20:02 | NUR ---
CALLED NURSING PSYCHIATRIC TECH FOR ICU BED
--- NOTE | 2017-01-07 20:02 | NUR ---
PT BIB FAMILY WITH A C/O INCREASED CONFUSION. PT IS SOB. PT IS ON BI-PAP AT HOME, BUT IS NON COMPLIANT.
--- NOTE | 2017-01-07 20:03 | NUR ---
PATIENT ASSIGNED ICU 254
--- NOTE | 2017-01-07 20:18 | NUR ---
PT IS BEING PLACED ON BIPAP. SETTINGS: 15/5 , RT 16, FIO2 40%,
[2017-01-07 20:21] LABS: BASOPHILS % (AUTO) 0.1 % (0.0-2.0); EOSINOPHILS # (AUTO) 0.1 /CMM (0.0-0.7); EOSINOPHILS % (AUTO) 0.9 % (0.0-6.0); LYMPHOCYTES % (AUTO) 6.6 % (20.0-44.0); MEAN CORPUSCULAR HEMOGLOBIN 22 PG (26.0-33.0); MEAN CORPUSCULAR HGB CONC 30 g/dl (31.0-36.0); MEAN CORPUSCULAR VOLUME 74 fL (80-96); MONOCYTES # (AUTO) 1.4 /CMM (0.1-1.30); MONOCYTES % (AUTO) 9.3 % (2.0-12.0); NEUTROPHILS # (AUTO) 12.4 /CMM (1.8-8.9); NEUTROPHILS % (AUTO) 83.1 % (43.0-81.0); PLATELET COUNT (AUTO) 396 /CMM (150-450); RDW COEFFICIENT OF VARIATION 17.1 (11.5-15.0)
--- NOTE | 2017-01-07 20:24 | NUR ---
XRAY IN PROGRESS AT THE BEDSIDE.
[2017-01-07 20:29] LABS: HEMOGLOBIN 11.5 g/dL (13.5-17.5)
[2017-01-07 20:30] LABS: HEMATOCRIT 38 % (39-51)
[2017-01-07 20:38] VITALS: BP 119/71
[2017-01-07 20:42] LABS: TROPONIN I 0.025 ng/mL (0.00-0.056)
--- NOTE | 2017-01-07 20:42 | NUR ---
PAGED NANOELECTRONICS ENGINEER FOR JO-ANN ZHAO NP
--- NOTE | 2017-01-07 20:42 | NUR ---
ATTEMPTED TO REACH DR PICHARDO'S EXCHANGE. DR PICHARDO NOT AQUATIC LIFE LABORER
[2017-01-07 20:44] LABS: ALANINE AMINOTRANSFERASE 30 U/L (12-78); ALBUMIN 3.2 g/dL (3.4-5.0); ALKALINE PHOSPHATASE 108 U/L (46-116); ASPARTATE AMINOTRANSFERASE 26 U/L (15-37); B-TYPE NATRIURETIC PEPTIDE 517 PG/ML (0-125); BILIRUBIN,DIRECT 0.1 mg/dL (0.0-0.2); BILIRUBIN,TOTAL 0.3 mg/dL (0.2-1.0); CALCIUM, SERUM 9.2 mg/dL (8.5-10.1); CREATININE 1.5 mg/dL (0.6-1.3); GLUCOSE 143 mg/dL (74-106); SODIUM SERUM 130 mmol/L (136-145); TOTAL PROTEIN, SERUM 7.5 g/dL (6.4-8.2); UREA NITROGEN, BLOOD 39 mg/dL (7-18)
--- NOTE | 2017-01-07 20:44 | NUR ---
BIPAP SETTINGS ARE NOW: 15/5, RT 18, FIO2 40%. PT'S DENTURES WERE REMOVED AND PLACED INTO A DENTURE CUP. PT'S SON HAS THE DENTURES.
[2017-01-07 20:52] LABS: BAND % (MANUAL) 2 % (0.0-5.0); LYMPHOCYTES % (MANUAL) 8 % (16-48); MONOCYTES % (MANUAL) 6 % (0-11.0); NEUTROPHILS % (MANUAL) 84 (42-76)
--- NOTE | 2017-01-07 20:52 | NUR ---
RT NOTE PT PLACED ON BIPAP PER MD ORDER. SETTINGS PRESCRIBED. ALARMS SET PER PROTOCOL AND AUDIBLE. AMBU BAG AT BEDSIDE. BIPAP PLUGGED IN TO RED OUTLET. PT AWAKE AND ALERT, APPEARS COMFORTABLE. Addendum: 01/07/17 at 2054 by VIV LUI RT Amended: Links added.
--- NOTE | 2017-01-07 20:52 | NUR ---
REPORT GIVEN TO LEXI QUAN - ICU
[2017-01-07 20:53] LABS: ANISOCYTOSIS 1+; PLATELET ESTIMATE INCRE
[2017-01-07 20:59] LABS: CARBON DIOXIDE 54 mmol/L (21-32); CHLORIDE 80 mmol/L (98-107); POTASSIUM 2.7 mmol/L (3.5-5.1)
--- NOTE | 2017-01-07 21:01 | NUR ---
LACEY SWANN IS AT THE BEDSIDE.
[2017-01-07] MEDS: POTASSIUM CL. PREMIX PERIPHER. 50 ML IV SCH ×7 (21:12→23:30)
--- NOTE | 2017-01-07 21:13 | NUR ---
POTASSIUM 40 MEQ IVPB TO BE GIVEN IN ICU. ORDERS IN CHART. TASIA SWANNP-BC AWARE.
[2017-01-07 21:27] VITALS: BP 112/66
[2017-01-07 21:30] VITALS: BP 124/55
[2017-01-07] MEDS ORDERED: IV SET PRIMARY PUMP SET 1 EA INFUS.SET MC ONE (21:34)
[2017-01-07] MEDS ORDERED: POTASSIUM CL. PREMIX PERIPHER. 200 ML ONE (21:34)
--- NOTE | 2017-01-07 21:50 | NUR ---
MASTER OCEAN YACHT RCD CALL FROM [facility] BAXTER REQUESTING ABG RESULTS NOT IN COMPUTER NO PAPER COPY PROVIDED. PER RT THEY WILL BRING COPY.
[2017-01-07 22:00] VITALS: BP 112/63
[2017-01-07] MEDS ORDERED: IPRATROPIUM NEB FS 0.5 MG/2.5 ML AMPUL.NEB NEB PRN (22:00)
[2017-01-07] MEDS ORDERED: NITROGLYCERIN 0.4 MG/TAB BOTTLE SL PRN (22:00)
[2017-01-07] MEDS ORDERED: MECLIZINE HCL 12.5 MG TABLET PO PRN (22:00)
[2017-01-07] MEDS ORDERED: ONDANSETRON HCL/PF 4 MG/2 ML VIAL IVP PRN (22:00)
[2017-01-07] MEDS ORDERED: SENNOSIDES 8.6 MG TABLET PO PRN (22:00)
[2017-01-07] MEDS ORDERED: HYDROCODONE/APAP 5/325MG 1 EACH TABLET PO PRN (22:00)
[2017-01-07] MEDS ORDERED: CYANOCOBALAMIN 1,000 MCG/ML VIAL IM SCH (22:00)
[2017-01-07] MEDS ORDERED: ACETAMINOPHEN 325 MG TABLET PO PRN (22:00)
[2017-01-07] MEDS ORDERED: ALBUTEROL FS 2.5 MG/3 ML VIAL.NEB NEB PRN (22:00)
[2017-01-07] MEDS ORDERED: MAGNESIUM HYDROXIDE 30 ML UDC PO PRN (22:00)
[2017-01-07] MEDS ORDERED: ERGOCALCIFEROL (VITAMIN D 2) 50,000 UNIT CAPSULE PO SCH (22:00)
[2017-01-07] MEDS ORDERED: Z GUARD REMEDY 2 OZ OINT TP PRN (22:00)
[2017-01-07] MEDS ORDERED: CARISOPRODOL 350 MG TABLET PO PRN (22:00)
[2017-01-07] MEDS ORDERED: BISACODYL (5 MG) 5 MG TABLET.DR PO PRN (22:00)
[2017-01-07] MEDS ORDERED: MAG HYDROX/AL HYDROX/SIMETH 30 ML UDC PO PRN (22:00)
[2017-01-07 22:36] VITALS: BP 110/56
[2017-01-07 23:00] VITALS: BP 109/70
[2017-01-07 23:17] LABS: ABG BASE EXCESS 32.1 mmol/L; ABG OXYGEN SATURATION 94.1 % (92.0-98.5); ABG PCO2 92.7 mmHg (35.0-45.0); ABG PH 7.443 (7.350-7.450); ABG PO2 78.5 mmHg (75.0-100.0); ABG TOTAL HEMOGLOBIN 11.4 G/dL (13.5-18.0); AaDO2 100.1 mmHg; MetHb 0.5 % (0.0-1.5); O2Hb 92.7 % (94.0-97.0); SITE, ABG Right Radial; VENT MODE, BG S/T 18 15/5 40%
[2017-01-08] VITALS (38 sets, daily range): BP systolic 99–152; BP diastolic 20–89
[2017-01-08] MEDS: POTASSIUM CL. PREMIX PERIPHER. 50 ML IV SCH ×7 (00:50→14:56)
--- NOTE | 2017-01-08 02:25 | NUR ---
TRUCK SALES REPRESENTATIVE PT AGITATED ATTEMPTING TO GET OUT OF BED; BECAME COMBATIVE AND REMOVED BIPAP. SON AT BEDSIDE ABLE TO CALM PT DOWN AND PREVENT FROM GETTING OUT OF BED BED ALARM ON. CONTINUE TO MONITOR.
[2017-01-08 03:29] LABS: ABG BASE EXCESS 30.6 mmol/L; ABG OXYGEN SATURATION 93.4 % (92.0-98.5); ABG PCO2 83.7 mmHg (35.0-45.0); ABG PO2 73.2 mmHg (75.0-100.0); ABG TOTAL HEMOGLOBIN 11.5 G/dL (13.5-18.0); AaDO2 556.1 mmHg; MetHb 0.7 % (0.0-1.5); O2Hb 91.8 % (94.0-97.0); SITE, ABG Right Radial; VENT MODE, BG ST 18 15/5 100%
[2017-01-08] MEDS ORDERED: LEVOFLOXACIN 750 MG /D5W 150ML 750 MG in PREMIX 1 EA IV SCH (03:30)
--- NOTE | 2017-01-08 03:30 | NUR ---
CHIEF SCIENTIST PT NOTED WITH SATURATION IN THE 70s PT CONTINUES TO BE RESTLESS AT THIS TIME; RT AT BEDSIDE; ABG DONE; FIO2 INCREASED TO 100% BY RT. SON REMAINS AT BEDSIDE ABLE TO CALM PT DOWN. CONTINUE TO MONITOR.
[2017-01-08] MEDS ORDERED: LEVOFLOXACIN 750 MG /D5W 150ML 150 ML IV ONE (03:38)
[2017-01-08] MEDS ORDERED: IV SET PRIMARY PUMP SET 1 EA INFUS.SET MC ONE ×2 (04:11→08:35)
--- NOTE | 2017-01-08 04:20 | NUR ---
BRAND MGR BLOOD CULTURES DRAWN PRIOR TO ADMINISTRATION OF LEVAQUIN.
[2017-01-08 05:09] LABS: BASOPHILS # (AUTO) 0.1 /CMM (0.0-0.2); BASOPHILS % (AUTO) 0.5 % (0.0-2.0); EOSINOPHILS # (AUTO) 0.2 /CMM (0.0-0.7); EOSINOPHILS % (AUTO) 1.6 % (0.0-6.0); HEMATOCRIT 37 % (39-51); HEMOGLOBIN 11.1 g/dL (13.5-17.5); LYMPHOCYTES # (AUTO) 0.8 /CMM (0.8-4.8); LYMPHOCYTES % (AUTO) 7.3 % (20.0-44.0); MEAN CORPUSCULAR HEMOGLOBIN 23 PG (26.0-33.0); MEAN CORPUSCULAR HGB CONC 30 g/dl (31.0-36.0); MEAN CORPUSCULAR VOLUME 74 fL (80-96); MONOCYTES # (AUTO) 1.2 /CMM (0.1-1.30); MONOCYTES % (AUTO) 10.2 % (2.0-12.0); NEUTROPHILS # (AUTO) 9.3 /CMM (1.8-8.9); NEUTROPHILS % (AUTO) 80.4 % (43.0-81.0); PLATELET COUNT (AUTO) 312 /CMM (150-450); RDW COEFFICIENT OF VARIATION 16.8 (11.5-15.0); RED BLOOD CELL COUNT(AUTO) 4.95 MIL/uL (4.5-6.0); WHITE BLOOD COUNT (AUTO) 11.6 K/uL (4.3-11.0)
[2017-01-08 05:23] LABS: CALCIUM, SERUM 8.6 mg/dL (8.5-10.1); CHLORIDE 85 mmol/L (98-107); CREATININE 1.2 mg/dL (0.6-1.3); GLUCOSE 122 mg/dL (74-106); MAGNESIUM 1.3 mg/dL (1.8-2.4); PHOSPHORUS 3.3 mg/dL (2.5-4.9); SODIUM SERUM 134 mmol/L (136-145); UREA NITROGEN, BLOOD 37 mg/dL (7-18)
[2017-01-08 05:31] LABS: CHOLESTEROL 171 mg/dL (<200); HDL CHOLESTEROL 74 mg/dL (40-60); LDL 75 mg/dL (0-99); THYROID STIMULATING HORMONE 32.833 uIU/mL (0.358-3.74); TRIGLYCERIDES 99 mg/dL (30-150)
[2017-01-08 05:47] LABS: BAND % (MANUAL) 5 % (0.0-5.0); EOSINOPHILS % (MANUAL) 3 % (0-4); LYMPHOCYTES % (MANUAL) 9 % (16-48); MONOCYTES % (MANUAL) 6 % (0-11.0); NEUTROPHILS % (MANUAL) 77 (42-76)
[2017-01-08 05:48] LABS: ANISOCYTOSIS 1+; HYPOCHROMASIA 1+; PLATELET ESTIMATE ADEQUATE; POTASSIUM 2.7 mmol/L (3.5-5.1)
[2017-01-08 05:49] LABS: CARBON DIOXIDE 65 mmol/L (21-32)
[2017-01-08] MEDS ORDERED: PANTOPRAZOLE 40 MG TABLET.DR PO SCH (07:30)
--- NOTE | 2017-01-08 07:32 | NUR ---
VALUE ANALYST RECEIVED PATIENT FROM THE PREVIOUS SHIFT. PATIENT IS IN BED. RESTING COMFORTABLY. NO ACUTE DISTRESS. EVEN NON LABORED BREATHING PATTERN. BIPAP SETTINGS REVIEWED AND VERIFIED. AFEBRILE. SINUS RHYTHM NON MONITOR. TURNED AND REPOSITIONED FOR COMFORT AND WOUND PREVENTION. WILL CONTINUE TO MONITOR AND PROVIDE CARE.
[2017-01-08] MEDS ORDERED: IV NS 0.9% 1,000 ML IV PRN (07:52)
--- NOTE | 2017-01-08 08:05 | NUR ---
RT PATIENT REMOVED FROM BIPAP PER DR BELLO VERBAL ORDER. PLACED ON 4L N/C WITH NO SIGNS OF SOB. RN AWARE
[2017-01-08] MEDS ORDERED: IV NS 0.9% 250 ML IV ONE (08:35)
[2017-01-08] MEDS ORDERED: ERGOCALCIFEROL (VITAMIN D 2) 50,000 UNIT CAPSULE PO SCH (09:09)
[2017-01-08] MEDS: Magnesium 1GM/D5W 100ML PREMIX 100 ML IV SCH ×4 (09:22→12:45)
[2017-01-08] MEDS: FLUTICASONE/SALMETEROL DISKUS IH SCH ×2 (09:24→17:33)
[2017-01-08] MEDS: ASPIRIN 325 MG TABLET PO SCH (09:25)
[2017-01-08] MEDS: FERROUS SULFATE (325 MG) 325 MG/TAB TABLET PO SCH (09:25)
[2017-01-08] MEDS: CLOPIDOGREL BISULFATE 75 MG TABLET PO SCH (09:25)
[2017-01-08] MEDS: PHENYTOIN EXTENDED RELEASE 100 MG CAPSULE PO SCH ×3 (09:25→17:33)
[2017-01-08] MEDS: DOCUSATE SODIUM 100 MG CAPSULE PO SCH ×3 (09:25→17:33)
[2017-01-08] MEDS: TAMSULOSIN 0.4 MG CAP.SR.24H PO SCH (09:25)
[2017-01-08] MEDS: CALCIUM CARB 600MG /VIT D 1 EACH TABLET PO SCH (09:25)
[2017-01-08] MEDS: AMIODARONE HCL 200 MG TABLET PO SCH (09:25)
[2017-01-08] MEDS: PANTOPRAZOLE 40 MG VIAL IV SCH (09:26)
[2017-01-08] MEDS ORDERED: CYANOCOBALAMIN 1,000 MCG/ML VIAL IM SCH (09:30)
[2017-01-08] MEDS: LEVOFLOXACIN 750 MG /D5W 150ML 750 MG in PREMIX 1 EA IV SCH (10:07)
[2017-01-08] MEDS: SPIRONOLACTONE 25 MG TABLET PO SCH (10:09)
[2017-01-08] MEDS ORDERED: SECONDARY IV SET 1 EA INFUS.SET MC ONE (10:34)
[2017-01-08] MEDS: ALBUTEROL HALF STRENGTH 1.25 MG/3 ML VIAL.NEB NEB SCH ×5 (10:35→23:54)
[2017-01-08] MEDS: IPRATROPIUM NEB FS 0.5 MG/2.5 ML AMPUL.NEB NEB SCH ×4 (10:36→23:54)
--- NOTE | 2017-01-08 12:17 | NUR ---
PC INSTALLATION ENGINEER PATIENT IS IN BED. RESTING COMFORTABLY. EPISODES OF HYPOXIA NOTED DURING AGITATION AND WHEN BED IS LOWERED AT A RAPID LEVEL. UNABLE TO RECEIVE URINE SAMPLE DUE TO INCONTINENCE AND HIGH RISK FOR HYPOXIA DURING STRAIGHT CATHETERIZATION. WILL CONSULT ASSISTANT HEAD CASHIER FOR THE BEARDEN CATHETER. WILL CONTINUE TO MONITOR AND PROVIDE CARE.
[2017-01-08] MEDS ORDERED: IV NS 0.9% 1,000 ML IV SCH (12:28)
--- NOTE | 2017-01-08 12:34 | NUR ---
pt is receiving the one liter of ns that dr varner ordered
--- NOTE | 2017-01-08 14:45 | NUR ---
CONSTRUCTION SITE CROSSING GUARD RN ATTEMPTING TO COLLECT URINE CLEAN CATCH AT THIS TIME. PER FAMILY PATIENT HAD SEVERE AGITATION/ DISTRESS LAST TIME HE WAS ATTEMPTED ON STRAIGHT CATH. SR. MERCHANDISE PLANNER MADE AWARE.
[2017-01-08] MEDS ORDERED: FUROSEMIDE 40 MG TABLET PO SCH (18:00)
--- NOTE | 2017-01-08 18:20 | NUR ---
MAKE UP OPERATOR NOTE 1700: Received report from Tristin ELLIOTT for DARLENE, on 4LPM of O2 via NC tolerated, Sat >90%. With PIVs intact, IVF infusing as ordered. Patient is A/Ox3. compliant to care at this time. Family at bedside, aware for the POC. Provided new urinals fro clean catch of urine if able. 1814: No any significant changes noted at this time. Will continue to monitor. Dinner tray delivered but patient refused, also encouraged but patient still refused dinner. Kept clean, warm and dry. Needs attended. Kept call light at reach. NSR with BBB on the monitor. No c/o respiratory distress, 92% O2 sat on 4 LPM of O2 via NC.
[2017-01-08] MEDS: RANOLAZINE 500 MG PO SCH (19:59)
[2017-01-09] VITALS (23 sets, daily range): BP systolic 92–129; BP diastolic 47–73
[2017-01-09] MEDS: IPRATROPIUM NEB FS 0.5 MG/2.5 ML AMPUL.NEB NEB SCH ×5 (03:31→23:30)
[2017-01-09] MEDS: ALBUTEROL HALF STRENGTH 1.25 MG/3 ML VIAL.NEB NEB SCH ×5 (03:32→23:30)
[2017-01-09 05:24] LABS: BASOPHILS % (AUTO) 0.2 % (0.0-2.0); EOSINOPHILS # (AUTO) 0.1 /CMM (0.0-0.7); EOSINOPHILS % (AUTO) 1.1 % (0.0-6.0); HEMATOCRIT 33 % (39-51); HEMOGLOBIN 10.1 g/dL (13.5-17.5); LYMPHOCYTES # (AUTO) 0.9 /CMM (0.8-4.8); LYMPHOCYTES % (AUTO) 8.7 % (20.0-44.0); MEAN CORPUSCULAR HEMOGLOBIN 23 PG (26.0-33.0); MEAN CORPUSCULAR HGB CONC 31 g/dl (31.0-36.0); MEAN CORPUSCULAR VOLUME 74 fL (80-96); MONOCYTES % (AUTO) 9.9 % (2.0-12.0); NEUTROPHILS # (AUTO) 8.4 /CMM (1.8-8.9); NEUTROPHILS % (AUTO) 80.1 % (43.0-81.0); PLATELET COUNT (AUTO) 299 /CMM (150-450); RDW COEFFICIENT OF VARIATION 16.5 (11.5-15.0); RED BLOOD CELL COUNT(AUTO) 4.47 MIL/uL (4.5-6.0); WHITE BLOOD COUNT (AUTO) 10.5 K/uL (4.3-11.0)
[2017-01-09 05:36] LABS: TROPONIN I 0.035 ng/mL (0.00-0.056)
[2017-01-09 05:43] LABS: ALBUMIN 2.6 g/dL (3.4-5.0); BILIRUBIN,TOTAL 0.3 mg/dL (0.2-1.0); CALCIUM, SERUM 8.2 mg/dL (8.5-10.1); CREATININE 1.1 mg/dL (0.6-1.3); MAGNESIUM 1.7 mg/dL (1.8-2.4); PHOSPHORUS 2.4 mg/dL (2.5-4.9); TOTAL PROTEIN, SERUM 6.2 g/dL (6.4-8.2)
[2017-01-09 06:01] LABS: POTASSIUM 2.8 mmol/L (3.5-5.1)
[2017-01-09] MEDS ORDERED: POTASSIUM CHLORIDE 20 MEQ TAB.PRT.SR PO ONE (08:00)
[2017-01-09] MEDS: PANTOPRAZOLE 40 MG VIAL IV SCH (08:03)
[2017-01-09] MEDS: RANOLAZINE 500 MG PO SCH ×3 (08:03→17:00)
[2017-01-09] MEDS: CALCIUM CARB 600MG /VIT D 1 EACH TABLET PO SCH (08:03)
[2017-01-09] MEDS: PHENYTOIN EXTENDED RELEASE 100 MG CAPSULE PO SCH ×3 (08:04→16:31)
[2017-01-09] MEDS: CLOPIDOGREL BISULFATE 75 MG TABLET PO SCH (08:04)
[2017-01-09] MEDS: ASPIRIN 325 MG TABLET PO SCH (08:04)
[2017-01-09] MEDS: FERROUS SULFATE (325 MG) 325 MG/TAB TABLET PO SCH (08:04)
[2017-01-09] MEDS: AMIODARONE HCL 200 MG TABLET PO SCH (08:04)
[2017-01-09] MEDS: SPIRONOLACTONE 25 MG TABLET PO SCH (08:04)
[2017-01-09] MEDS: DOCUSATE SODIUM 100 MG CAPSULE PO SCH ×3 (08:04→16:31)
[2017-01-09] MEDS: TAMSULOSIN 0.4 MG CAP.SR.24H PO SCH (08:05)
[2017-01-09] MEDS: FLUTICASONE/SALMETEROL DISKUS IH SCH ×2 (08:35→16:31)
[2017-01-09] MEDS: Magnesium 1GM/D5W 100ML PREMIX 100 ML IV SCH ×2 (08:35→09:38)
[2017-01-09 08:55] LABS: IRON, SERUM 62 ug/dl (50-175); TOTAL IRON BINDING CAPACITY 246 ug/dl (250-450)
[2017-01-09 09:38] LABS: FERRITIN 168 ng/mL (8-388)
[2017-01-09] MEDS: POTASSIUM CHLORIDE 20 MEQ TAB.PRT.SR PO SCH ×5 (09:38→12:54)
[2017-01-09] MEDS: LEVOFLOXACIN 750 MG /D5W 150ML 750 MG in PREMIX 1 EA IV SCH (09:42)
--- NOTE | 2017-01-09 10:24 | NUR ---
TIMBER SPOTTER NOTE 0720: Received patient awake, noted with agitation, off Bipap at this time, on 4LPM of O2 via NC tolerated, Sat 91%. With HUGH midline intact. 0800: Placed patient to commode as requested. S/E by dr. Hartley, made aware for K 2.8, with order to give 40meq POx1 now and he will add more doses later, carried out. Noted patient with clear vanessa urine, sent to lab for specimen. 0830: Placed patient to chair to keep him upright. 0945: S/E by Dr. Martin, 95% O2 sat on 4LPM of O2 via NC. 1000: Family arrived and informed needed more supply for Renexa, said they will follow up with their pharmacy.
[2017-01-09 10:34] LABS: APPEARANCE,URINE SL CLOUDY (CLEAR); BILIRUBIN,URINE NEGATIVE (NEGATIVE); BLOOD, URINE NEGATIVE Ery/uL (NEGATIVE); COLOR,URINE YELLOW (YELLOW); KETONES,URINE NEGATIVE (NEGATIVE); LEUKOCYTE ESTERASE ,URINE NEGATIVE (NEGATIVE); NITRITE, URINE NEGATIVE (NEGATIVE); PROTEIN,URINE NEGATIVE (NEGATIVE); UGLUCOSE NEGATIVE (NEGATIVE); UROBILINOGEN,URINE 0.2 EU/dL (0.2)
--- NOTE | 2017-01-09 11:15 | NUR ---
WOUND CARE CONSULT PATIENT SEEN AND SKIN INTEGRITY ASSESSMENT DONE. PATIENT WITH CURRENT AP AT 19, UP IN BEDSIDE CHAIR AND INDEPENDENT WITH BED MOBILITY, CONTINENT. PLEASE SEE COMPANY DOCTOR ASSESSMENT IN PCS FOR TODAY ALONG WITH ALL RECOMMENDATIONS. MD IN AGREEMENT WITH PLAN OF TREATMENT AND PLAN OF CARE. ALL DISCUSSED WITH NURSING AT THE BEDSIDE. Addendum: 01/09/17 at 1117 by FCO AMATO WNDNU Amended: Links added.
[2017-01-09] MEDS ORDERED: busPIRone 5 MG TABLET PO PRN (12:30)
--- NOTE | 2017-01-09 12:45 | NUR ---
JEEP MECHANIC NOTE S/E by Dr. uQinones, with order of Buspar PRN for agitation. Patient calm at this time, on 2 LPM of O2 via NC, O2 sat 93%.
[2017-01-09] MEDS ORDERED: K PHOS NEUTRAL 250 MG TABLET PO ONE (13:00)
--- NOTE | 2017-01-09 17:14 | NUR ---
SHIP RUNNER NOTE Followed up with the pharmacy re: the [place]exa, made them aware, no more supply, only 2 tabs given yesterday, said they will follow up with their pharmacy outside.
--- NOTE | 2017-01-09 18:25 | NUR ---
ELECTRONIC WARFARE TECHNICAL NOTE Transferred patient to [facility] via wheelchair and using ACLS protocol. No any significant changes noted during the transfer. Placed to chair in the new room as requested. Accompanied by family members, all belongings were checked and with the patient. Kept clean, warm and dry. Needs attended. HUGH midline intact and PIVs intact. No respiratory distress noted. Addendum: 01/09/17 at 1853 by WALE SHORT RN Report given to Amanda ELLIOTT for DARLENE.
--- NOTE | 2017-01-09 18:33 | NUR ---
CARTER RN NOTE RECEIVED PATIENT FROM ICU ALERT ORIENTED X3 .P,CR ON TELE SR 86 . ALL NEEDS ATTENDED AT BEDSIDE ON 2L NC SAT 93% RT UPPER ARM MID LINE AND LT HAND AND LT THUMP HL INTACT , BED IN LOWEST AND LOCKED POSITION , HOSPITAL ORIENTATION DONE, VS TAKEN , WILL CONT TO MONITOR CLOSELY
--- NOTE | 2017-01-09 20:00 | NUR ---
RN NOTES RECEIVED PX ASLEEP BUT EASILY WAKES UP, ORIENTED TO NAME AND PLACE ONLY, FOLLOWS COMMAND, NOT IN DISTRESS, RESP EVEN AND UNLABORED; MOVES BY SELF INDEPENDENTLY; IV ACCESS FLUSHED,PATENT AND INTACT; SEE SKIN FLOWSHEET FOR SKIN ASSESSMENT; PX DENIED SOB, PAIN, N/V; DISCUSSED PLAN OF CARE.
--- NOTE | 2017-01-09 23:20 | NUR ---
PLACED ON NOC BIPAP. RN NOTIFIED.
[2017-01-10] VITALS: BP 110/56
--- NOTE | 2017-01-10 00:27 | NUR ---
RN NOTES CONDITION STABLE; ON BIPAP MACHINE; VITAL SIGN WNL, RESP EVEN AND UNLABORED, NOT IN DISTRESS. CONTINUED TO MONITOR.
[2017-01-10] MEDS: IPRATROPIUM NEB FS 0.5 MG/2.5 ML AMPUL.NEB NEB SCH ×6 (03:34→23:18)
[2017-01-10] MEDS: ALBUTEROL HALF STRENGTH 1.25 MG/3 ML VIAL.NEB NEB SCH ×6 (03:34→23:18)
[2017-01-10 04:00] VITALS: BP 105/47
--- NOTE | 2017-01-10 06:19 | NUR ---
RN NOTES HAD 1 BM AND DIAPER SOAKED OF URINE; CLEANED PX AND CHANGED GOWN AND BED LINENS; TOLERATED PROCEDURE WELL; CHANGED DRESSING ON SACRAL AREA USING MEPILEX; DENIED PAIN, SOB, N/V; NO NEW SKIN BREAKDOWN; PIV STILL INTACT AND PATENT; SR ON MONITOR; WILL ENDORSE TO NEXT RN.
[2017-01-10 08:00] VITALS: BP 111/48
[2017-01-10 08:03] LABS: BASOPHILS # (AUTO) 0.1 /CMM (0.0-0.2); BASOPHILS % (AUTO) 0.6 % (0.0-2.0); EOSINOPHILS # (AUTO) 0.1 /CMM (0.0-0.7); EOSINOPHILS % (AUTO) 0.9 % (0.0-6.0); HEMATOCRIT 32 % (39-51); HEMOGLOBIN 9.7 g/dL (13.5-17.5); LYMPHOCYTES # (AUTO) 0.9 /CMM (0.8-4.8); LYMPHOCYTES % (AUTO) 9.2 % (20.0-44.0); MEAN CORPUSCULAR HEMOGLOBIN 23 PG (26.0-33.0); MEAN CORPUSCULAR HGB CONC 31 g/dl (31.0-36.0); MEAN CORPUSCULAR VOLUME 73 fL (80-96); MONOCYTES # (AUTO) 1.1 /CMM (0.1-1.30); MONOCYTES % (AUTO) 11.1 % (2.0-12.0); NEUTROPHILS # (AUTO) 7.9 /CMM (1.8-8.9); NEUTROPHILS % (AUTO) 78.2 % (43.0-81.0); PLATELET COUNT (AUTO) 279 /CMM (150-450); RDW COEFFICIENT OF VARIATION 16.7 (11.5-15.0); RED BLOOD CELL COUNT(AUTO) 4.29 MIL/uL (4.5-6.0); WHITE BLOOD COUNT (AUTO) 10.1 K/uL (4.3-11.0)
[2017-01-10 08:10] LABS: ALBUMIN 2.6 g/dL (3.4-5.0); BILIRUBIN,TOTAL 0.3 mg/dL (0.2-1.0); CALCIUM, SERUM 7.7 mg/dL (8.5-10.1); CREATININE 1.1 mg/dL (0.6-1.3); MAGNESIUM 1.8 mg/dL (1.8-2.4); PHOSPHORUS 2.8 mg/dL (2.5-4.9); POTASSIUM 3.4 mmol/L (3.5-5.1); TOTAL PROTEIN, SERUM 6.1 g/dL (6.4-8.2)
[2017-01-10] MEDS: PANTOPRAZOLE 40 MG VIAL IV SCH (09:26)
[2017-01-10] MEDS: FLUTICASONE/SALMETEROL DISKUS IH SCH ×2 (09:26→17:47)
[2017-01-10] MEDS: LEVOFLOXACIN 750 MG /D5W 150ML 750 MG in PREMIX 1 EA IV SCH (09:26)
[2017-01-10] MEDS: CALCIUM CARB 600MG /VIT D 1 EACH TABLET PO SCH (09:27)
[2017-01-10] MEDS: SPIRONOLACTONE 25 MG TABLET PO SCH (09:27)
[2017-01-10] MEDS: FERROUS SULFATE (325 MG) 325 MG/TAB TABLET PO SCH (09:27)
[2017-01-10] MEDS: ASPIRIN 325 MG TABLET PO SCH (09:27)
[2017-01-10] MEDS: CLOPIDOGREL BISULFATE 75 MG TABLET PO SCH (09:27)
[2017-01-10] MEDS: TAMSULOSIN 0.4 MG CAP.SR.24H PO SCH (09:27)
[2017-01-10] MEDS: PHENYTOIN EXTENDED RELEASE 100 MG CAPSULE PO SCH ×3 (09:28→17:46)
[2017-01-10] MEDS: DOCUSATE SODIUM 100 MG CAPSULE PO SCH ×3 (09:28→17:47)
[2017-01-10] MEDS: AMIODARONE HCL 200 MG TABLET PO SCH (09:30)
[2017-01-10] MEDS: RANOLAZINE 500 MG PO SCH ×2 (09:34→17:50)
[2017-01-10] MEDS ORDERED: IV SET PRIMARY PUMP SET 1 EA INFUS.SET MC ONE (09:49)
[2017-01-10] MEDS ORDERED: POTASSIUM CHLORIDE 20 MEQ TAB.PRT.SR PO SCH (11:00)
[2017-01-10 12:00] VITALS: BP 97/47
[2017-01-10 16:00] VITALS: BP 120/60
--- NOTE | 2017-01-10 17:02 | NUR ---
WOUND CARE CONSULT ORDERED FOR SACRAL SKIN TEAR. LOCOMOTIVE BOILERMAKER NETTE NOTIFIED ABOUT DR DREW'S ORDER TO PROVIDE NEW BIPAP EQUIPMENT PRIOR TO DISCHARGE.
[2017-01-10 20:00] VITALS: BP 95/50
[2017-01-10] MEDS: SERTRALINE HCL 25 MG TABLET PO SCH (20:38)
--- NOTE | 2017-01-10 21:55 | NUR ---
ICU/RN- RT AT BEDSIDE TO PLACE PT ON NOC BIPAP.
[2017-01-10] MEDS: ALBUTEROL FS 2.5 MG/3 ML VIAL.NEB NEB SCH (22:00)
[2017-01-11] VITALS: BP 96/60
[2017-01-11] MEDS: IPRATROPIUM NEB FS 0.5 MG/2.5 ML AMPUL.NEB NEB SCH ×6 (03:18→23:43)
[2017-01-11] MEDS: ALBUTEROL HALF STRENGTH 1.25 MG/3 ML VIAL.NEB NEB SCH ×6 (03:18→23:43)
[2017-01-11 04:00] VITALS: BP 102/63
[2017-01-11] MEDS: ALBUTEROL FS 2.5 MG/3 ML VIAL.NEB NEB SCH ×2 (04:00→10:00)
[2017-01-11 07:12] LABS: CALCIUM, SERUM 8.1 mg/dL (8.5-10.1); CREATININE 1.1 mg/dL (0.6-1.3); POTASSIUM 3.4 mmol/L (3.5-5.1)
[2017-01-11 08:00] VITALS: BP 104/43
[2017-01-11] MEDS: PANTOPRAZOLE 40 MG VIAL IV SCH (09:15)
[2017-01-11] MEDS: ASPIRIN 325 MG TABLET PO SCH (09:15)
[2017-01-11] MEDS: SERTRALINE HCL 25 MG TABLET PO SCH (09:15)
[2017-01-11] MEDS: RANOLAZINE 500 MG PO SCH ×2 (09:15→17:00)
[2017-01-11] MEDS: PHENYTOIN EXTENDED RELEASE 100 MG CAPSULE PO SCH ×3 (09:15→17:00)
[2017-01-11] MEDS: SPIRONOLACTONE 25 MG TABLET PO SCH (09:15)
[2017-01-11] MEDS: CALCIUM CARB 600MG /VIT D 1 EACH TABLET PO SCH (09:15)
[2017-01-11] MEDS: AMIODARONE HCL 200 MG TABLET PO SCH (09:15)
[2017-01-11] MEDS: DOCUSATE SODIUM 100 MG CAPSULE PO SCH ×3 (09:15→17:00)
[2017-01-11] MEDS: TAMSULOSIN 0.4 MG CAP.SR.24H PO SCH (09:15)
[2017-01-11] MEDS: FERROUS SULFATE (325 MG) 325 MG/TAB TABLET PO SCH (09:15)
[2017-01-11] MEDS: FLUTICASONE/SALMETEROL DISKUS IH SCH ×2 (09:16→17:00)
[2017-01-11] MEDS: LEVOFLOXACIN 750 MG /D5W 150ML 750 MG in PREMIX 1 EA IV SCH (09:16)
[2017-01-11] MEDS: CLOPIDOGREL BISULFATE 75 MG TABLET PO SCH (09:16)
--- NOTE | 2017-01-11 10:30 | NUR ---
CARTER/RN - Notes Edwin, family service caseworker, at bedside speaking with family regarding arrangement for Bipap for home.
[2017-01-11] MEDS: POTASSIUM CHLORIDE 20 MEQ TAB.PRT.SR PO SCH ×2 (10:54→12:28)
--- NOTE | 2017-01-11 11:45 | NUR ---
CARTER/RN - Notes Dr Quinones at bedside for evaluation. Notified MD regarding pt's epistaxis. Gauze to right nare to prevent further bleeding.
[2017-01-11 12:00] VITALS: BP 90/51
[2017-01-11] MEDS: predniSONE 20 MG TABLET PO SCH (12:28)
[2017-01-11 16:00] VITALS: BP 116/71
[2017-01-11 20:00] VITALS: BP 113/65
[2017-01-12] VITALS (7 sets, daily range): BP systolic 92–121; BP diastolic 48–77
[2017-01-12] MEDS: IPRATROPIUM NEB FS 0.5 MG/2.5 ML AMPUL.NEB NEB SCH ×5 (03:25→19:30)
[2017-01-12] MEDS: ALBUTEROL HALF STRENGTH 1.25 MG/3 ML VIAL.NEB NEB SCH ×5 (03:25→19:30)
--- NOTE | 2017-01-12 06:25 | NUR ---
TD RN: NO SIGNIFICANT DARLENE DURING THE SHIFT. PT. WAS ON BIPAP (NOC) AND TOLERATED WELL. NOW ON 3L 02 VIA NC WT NO ACUTE DISTRESS. NO C/0 PAIN. ABLE TO MAKE NEEDS KNOWN WT RESTLESSNESS AT TIMES. SON AT BEDSIDE AND ABLE TO CALM PT. VS WITHIN HIS BASELINE. NO NOSE BLEED NOTED DURING THE SHIFT. ABLE TO COLLECT STOOL FOR OCCULT BLOOD. GOOD SKIN CARE RENDERED. SAFETY PRECAUTION NOTED AT ALL TIMES.
[2017-01-12 07:00] LABS: EOSINOPHILS # (AUTO) 0.1 /CMM (0.0-0.7); EOSINOPHILS % (AUTO) 0.5 % (0.0-6.0); HEMATOCRIT 35 % (39-51); HEMOGLOBIN 10.8 g/dL (13.5-17.5); LYMPHOCYTES # (AUTO) 1.2 /CMM (0.8-4.8); LYMPHOCYTES % (AUTO) 9.2 % (20.0-44.0); MEAN CORPUSCULAR HEMOGLOBIN 23 PG (26.0-33.0); MEAN CORPUSCULAR HGB CONC 31 g/dl (31.0-36.0); MEAN CORPUSCULAR VOLUME 75 fL (80-96); MONOCYTES # (AUTO) 1.1 /CMM (0.1-1.30); MONOCYTES % (AUTO) 8.2 % (2.0-12.0); NEUTROPHILS # (AUTO) 10.9 /CMM (1.8-8.9); NEUTROPHILS % (AUTO) 82.1 % (43.0-81.0); PLATELET COUNT (AUTO) 270 /CMM (150-450); RDW COEFFICIENT OF VARIATION 17.3 (11.5-15.0); RED BLOOD CELL COUNT(AUTO) 4.74 MIL/uL (4.5-6.0); WHITE BLOOD COUNT (AUTO) 13.3 K/uL (4.3-11.0)
[2017-01-12 07:26] LABS: ALBUMIN 2.9 g/dL (3.4-5.0); BILIRUBIN,TOTAL 0.4 mg/dL (0.2-1.0); CALCIUM, SERUM 8.3 mg/dL (8.5-10.1); CREATININE 1.1 mg/dL (0.6-1.3); MAGNESIUM 1.8 mg/dL (1.8-2.4); PHOSPHORUS 2.3 mg/dL (2.5-4.9); POTASSIUM 3.7 mmol/L (3.5-5.1); TOTAL PROTEIN, SERUM 7.2 g/dL (6.4-8.2)
[2017-01-12] MEDS: CALCIUM CARB 600MG /VIT D 1 EACH TABLET PO SCH (08:45)
[2017-01-12] MEDS: DOCUSATE SODIUM 100 MG CAPSULE PO SCH ×3 (08:45→17:01)
[2017-01-12] MEDS: CLOPIDOGREL BISULFATE 75 MG TABLET PO SCH (08:45)
[2017-01-12] MEDS: FERROUS SULFATE (325 MG) 325 MG/TAB TABLET PO SCH (08:46)
[2017-01-12] MEDS: ASPIRIN 325 MG TABLET PO SCH (08:46)
[2017-01-12] MEDS: TAMSULOSIN 0.4 MG CAP.SR.24H PO SCH (08:46)
[2017-01-12] MEDS: SPIRONOLACTONE 25 MG TABLET PO SCH (08:46)
[2017-01-12] MEDS: predniSONE 20 MG TABLET PO SCH (08:46)
[2017-01-12] MEDS: AMIODARONE HCL 200 MG TABLET PO SCH (08:47)
[2017-01-12] MEDS: SERTRALINE HCL 25 MG TABLET PO SCH (08:48)
[2017-01-12] MEDS: PHENYTOIN EXTENDED RELEASE 100 MG CAPSULE PO SCH ×3 (08:48→17:01)
[2017-01-12] MEDS: RANOLAZINE 500 MG PO SCH ×2 (08:48→16:07)
[2017-01-12] MEDS: FLUTICASONE/SALMETEROL DISKUS IH SCH ×2 (08:48→17:01)
[2017-01-12] MEDS ORDERED: LEVOFLOXACIN (500MG) 500 MG TABLET PO SCH (09:00)
--- NOTE | 2017-01-12 09:24 | NUR ---
CARTER RN Per Dr. Quinones, patient stable for discharge once home CPAP set up. Prescription given to daughter. Daughter and aware of discharge plan.
[2017-01-12] MEDS ORDERED: K PHOS NEUTRAL 250 MG TABLET PO ONE (17:00)
--- NOTE | 2017-01-12 18:18 | NUR ---
CARTER RN Received a message from Freight And Passenger Agent Edwin that patient ok to discharge. Bipap already arranged for home. Picture taken of the patient sacral wound but unclear due to dim light (wound peeling, intact base changed mepilex and applied z-guard). No more home medications returned from pharmacy, informed and signed patient belonging's list. Discharge instructions discussed with and signed. Questions answered. Verbalized understanding. Patient vitals stable, needs assistance on transfer, per home oxygen available at home.
--- NOTE | 2017-01-12 18:59 | NUR ---
RN:TD: PT TO BE DISCHARGED TO HOME. PREVIOUS NURSE COMPLETED ALL DISCHARGE PAPERWORK. WILL D/C IV ONCE PATIENT RIDE HOME IS HERE. PT STABLE FOR DISCHARGE.
--- NOTE | 2017-01-12 20:49 | NUR ---
RN:TD: PT DISCHARGED TO HOME. PT ACCOMPANIED BY CHIP BIN OPERATOR VIA WHEELCHAIR. VITAL SIGNS STABLE UPON DISCHARGE. RIGHT UPPER ARM MIDLINE AND RIGHT HAND IV D/C. CATHETER TIP INTACT, NO BLEEDING. ALL BELONGINGS TAKEN WITH PATIENT.
== END 2017-01-12 21:13 | disposition home health service (06) | DRG 133 ==
LOC: ER 19:49 → ICU 21:03 → TELE-TD 01-09 18:26
PROVIDERS: ADMIT Contractor; ATTEND Legal Medicine
PROC: 5A09357 Assistance with Respiratory Ventilation, Less than 24 Consecutive Hours, Continuous Positive Airway Pressure (ICD-10-PCS; principal; 2017-01-07)
PROC: 05H533Z Insertion of Infusion Device into Right Subclavian Vein, Percutaneous Approach (ICD-10-PCS; 2017-01-08)
DX: J96.22 Acute and chronic respiratory failure with hypercapnia (principal); G92 Toxic encephalopathy; J44.0 Chronic obstructive pulmonary disease with (acute) lower respiratory infection; I13.0 Hypertensive heart and chronic kidney disease with heart failure and stage 1 through stage 4 chronic kidney disease, or unspecified chronic kidney disease; I50.32 Chronic diastolic (congestive) heart failure; E66.2 Morbid (severe) obesity with alveolar hypoventilation; N18.9 Chronic kidney disease, unspecified; I25.10 Atherosclerotic heart disease of native coronary artery without angina pectoris; D50.9 Iron deficiency anemia, unspecified; D72.829 Elevated white blood cell count, unspecified; F41.9 Anxiety disorder, unspecified; I25.2 Old myocardial infarction; K21.9 Gastro-esophageal reflux disease without esophagitis; K59.09 Other constipation; Z87.891 Personal history of nicotine dependence; E87.6 Hypokalemia; E78.5 Hyperlipidemia, unspecified; E83.42 Hypomagnesemia; F33.1 Major depressive disorder, recurrent, moderate; Z95.810 Presence of automatic (implantable) cardiac defibrillator; G31.84 Mild cognitive impairment of uncertain or unknown etiology; F09 Unspecified mental disorder due to known physiological condition; M19.90 Unspecified osteoarthritis, unspecified site
CPT/HCPCS: 36415; 36569; 36600; 71010-TC; 80048-TC; 80053-TC; 80061-TC; 80076-TC; 80185-TC; 81000-TC; 82272-TC; 82728-TC; 82803-TC; 83540-TC; 83735-TC; 83880; 84100-TC; 84443-TC; 84484-TC; 85025-TC; 87040-TC; 87081-TC; 87086-TC; 94660; 94799-TC; A4216; A4606; A6402; A6403; C9113; J1956; J3420; J3475; J3480; J7030; J7050; Z7610

== ENCOUNTER 2017-02-26 10:45 | Inpatient (IN) | payer OTHER, MEDICARE ==
[~2017-02-26] VITALS: Ht 175.3 cm; Wt 92.1 kg
[2017-02-26] VITALS (14 sets, daily range): BP systolic 93–129; BP diastolic 51–78
[2017-02-26] MEDS ORDERED: ALBUTEROL FS 2.5 MG/3 ML VIAL.NEB NEB ONE (11:30)
[2017-02-26] MEDS ORDERED: IPRATROPIUM NEB FS 0.5 MG/2.5 ML AMPUL.NEB NEB ONE (11:30)
[2017-02-26 11:36] LABS: BASOPHILS # (AUTO) 0.7 /CMM (0.0-0.2); BASOPHILS % (AUTO) 4.5 % (0.0-2.0); EOSINOPHILS # (AUTO) 0.3 /CMM (0.0-0.7); EOSINOPHILS % (AUTO) 1.9 % (0.0-6.0); HEMATOCRIT 33 % (39-51); HEMOGLOBIN 9.9 g/dL (13.5-17.5); LYMPHOCYTES % (AUTO) 6.4 % (20.0-44.0); MEAN CORPUSCULAR HEMOGLOBIN 22 PG (26.0-33.0); MEAN CORPUSCULAR HGB CONC 30 g/dl (31.0-36.0); MEAN CORPUSCULAR VOLUME 74 fL (80-96); MONOCYTES # (AUTO) 1.5 /CMM (0.1-1.30); MONOCYTES % (AUTO) 9.1 % (2.0-12.0); NEUTROPHILS # (AUTO) 12.5 /CMM (1.8-8.9); NEUTROPHILS % (AUTO) 78.1 % (43.0-81.0); PLATELET COUNT (AUTO) 396 /CMM (150-450); RDW COEFFICIENT OF VARIATION 14.8 (11.5-15.0); RED BLOOD CELL COUNT(AUTO) 4.42 MIL/uL (4.5-6.0)
[2017-02-26 11:44] LABS: CALCIUM, SERUM 9.5 mg/dL (8.5-10.1); CHLORIDE 90 mmol/L (98-107); CREATININE 1.5 mg/dL (0.6-1.3); GLUCOSE 139 mg/dL (74-106); POTASSIUM 3.7 mmol/L (3.5-5.1); SODIUM SERUM 137 mmol/L (136-145); UREA NITROGEN, BLOOD 31 mg/dL (7-18)
[2017-02-26] MEDS ORDERED: IPRATROPIUM NEB FS 0.5 MG/2.5 ML AMPUL.NEB ONE (11:46)
[2017-02-26] MEDS ORDERED: ALBUTEROL FS 2.5 MG/3 ML VIAL.NEB ONE (11:46)
[2017-02-26 11:52] LABS: TROPONIN I < 0.017 ng/mL (0.00-0.056)
[2017-02-26] MEDS ORDERED: BUDE10.22 INH (11:54)
[2017-02-26 11:57] LABS: ALANINE AMINOTRANSFERASE 14 U/L (12-78); ALBUMIN 2.7 g/dL (3.4-5.0); ALKALINE PHOSPHATASE 83 U/L (46-116); ASPARTATE AMINOTRANSFERASE 27 U/L (15-37); B-TYPE NATRIURETIC PEPTIDE 437 PG/ML (0-125); BILIRUBIN,DIRECT 0.1 mg/dL (0.0-0.2); BILIRUBIN,TOTAL 0.3 mg/dL (0.2-1.0); TOTAL PROTEIN, SERUM 8.3 g/dL (6.4-8.2)
[2017-02-26] MEDS ORDERED: DIAZEPAM 5 MG TABLET ONE (11:59)
[2017-02-26] MEDS ORDERED: IBUPROFEN 600 MG TABLET PO ONE (11:59)
[2017-02-26 12:06] LABS: CARBON DIOXIDE 49 mmol/L (21-32)
[2017-02-26 13:00] LABS: BAND % (MANUAL) 6 % (0.0-5.0); EOSINOPHILS % (MANUAL) 2 % (0-4); LYMPHOCYTES % (MANUAL) 1 % (16-48); MONOCYTES % (MANUAL) 4 % (0-11.0); NEUTROPHILS % (MANUAL) 87 (42-76)
[2017-02-26] MEDS ORDERED: LEVOFLOXACIN 750 MG /D5W 150ML PIGGYBACK IV ONE (13:00)
[2017-02-26] MEDS ORDERED: DEXAMETHASONE SOD PHOSPHATE 10 MG/ML VIAL IV ONE (13:00)
[2017-02-26] MEDS ORDERED: LORAZEPAM INJ 2 MG/ML VIAL IV ONE (13:00)
[2017-02-26] MEDS ORDERED: IV SET PRIMARY PUMP SET 1 EA INFUS.SET MC ONE (13:08)
[2017-02-26] MEDS ORDERED: DEXAMETHASONE SOD PHOSPHATE 10 MG/ML VIAL ONE (13:08)
[2017-02-26] MEDS ORDERED: LEVOFLOXACIN 750 MG /D5W 150ML 150 ML IV ONE (13:08)
[2017-02-26] MEDS ORDERED: ACETAMINOPHEN 325 MG TABLET PO PRN (15:30)
[2017-02-26] MEDS ORDERED: ONDANSETRON HCL/PF 4 MG/2 ML VIAL IVP PRN (15:30)
[2017-02-26] MEDS ORDERED: ALBUTEROL FS 2.5 MG/0.5 ML VIAL.NEB NEB PRN (15:30)
[2017-02-26] MEDS ORDERED: IPRATROPIUM NEB FS 0.5 MG/2.5 ML AMPUL.NEB NEB PRN (15:30)
[2017-02-26] MEDS: methylPREDNISolone SOD SUCC 40 MG/ML VIAL IV SCH ×2 (15:54→23:21)
[2017-02-26] MEDS: PHENYTOIN EXTENDED RELEASE 100 MG CAPSULE PO SCH (17:00)
[2017-02-26] MEDS: TAMSULOSIN 0.4 MG CAP.SR.24H PO SCH (17:00)
[2017-02-26] MEDS: FERROUS SULFATE (325 MG) 325 MG/TAB TABLET PO SCH (17:00)
[2017-02-26] MEDS: CLOPIDOGREL BISULFATE 75 MG TABLET PO SCH (17:00)
[2017-02-26] MEDS: ASPIRIN 325 MG TABLET PO SCH (17:00)
[2017-02-26] MEDS: SPIRONOLACTONE 25 MG TABLET PO SCH (17:00)
[2017-02-26] MEDS: AMIODARONE HCL 200 MG TABLET PO SCH (17:00)
[2017-02-26] MEDS: FUROSEMIDE 40 MG TABLET PO SCH (17:17)
[2017-02-26] MEDS ORDERED: DOCUSATE SODIUM 100 MG CAPSULE PO PRN (18:30)
[2017-02-26] MEDS: POTASSIUM CHLORIDE 20 MEQ TAB.PRT.SR PO SCH (19:13)
[2017-02-26] MEDS: ENOXAPARIN SODIUM 40 MG/0.4 ML DISP.SYRIN SQ SCH (20:31)
[2017-02-26] MEDS: ALBUTEROL FS 2.5 MG/0.5 ML VIAL.NEB NEB SCH (20:39)
[2017-02-26] MEDS: IPRATROPIUM NEB FS 0.5 MG/2.5 ML AMPUL.NEB NEB SCH (20:39)
[2017-02-26] MEDS: OLANZAPINE 2.5 MG TABLET PO SCH (21:15)
[2017-02-26] MEDS: MECLIZINE HCL 12.5 MG TABLET PO PRN (21:15)
[2017-02-26 22:19] LABS: ABG BASE EXCESS 23.3 mmol/L; ABG OXYGEN SATURATION 93.3 % (92.0-98.5); ABG PCO2 84.7 mmHg (35.0-45.0); ABG PH 7.405 (7.350-7.450); ABG PO2 79.1 mmHg (75.0-100.0); AaDO2 108.7 mmHg; MetHb 0.4 % (0.0-1.5); SITE, ABG Right Radial
[2017-02-27] VITALS (16 sets, daily range): BP systolic 97–129; BP diastolic 56–76
[2017-02-27] MEDS: ALBUTEROL FS 2.5 MG/0.5 ML VIAL.NEB NEB SCH ×4 (01:16→20:12)
[2017-02-27] MEDS: IPRATROPIUM NEB FS 0.5 MG/2.5 ML AMPUL.NEB NEB SCH ×4 (01:16→20:12)
[2017-02-27 04:56] LABS: HEMATOCRIT 30 % (39-51); HEMOGLOBIN 9.3 g/dL (13.5-17.5); LYMPHOCYTES # (AUTO) 0.3 /CMM (0.8-4.8); LYMPHOCYTES % (AUTO) 3.7 % (20.0-44.0); MEAN CORPUSCULAR HEMOGLOBIN 23 PG (26.0-33.0); MEAN CORPUSCULAR HGB CONC 31 g/dl (31.0-36.0); MEAN CORPUSCULAR VOLUME 75 fL (80-96); MONOCYTES # (AUTO) 0.2 /CMM (0.1-1.30); MONOCYTES % (AUTO) 2.2 % (2.0-12.0); NEUTROPHILS # (AUTO) 8.2 /CMM (1.8-8.9); NEUTROPHILS % (AUTO) 94.1 % (43.0-81.0); PLATELET COUNT (AUTO) 334 /CMM (150-450); RDW COEFFICIENT OF VARIATION 16.1 (11.5-15.0); RED BLOOD CELL COUNT(AUTO) 4.03 MIL/uL (4.5-6.0); WHITE BLOOD COUNT (AUTO) 8.8 K/uL (4.3-11.0)
[2017-02-27 05:26] LABS: CALCIUM, SERUM 9.4 mg/dL (8.5-10.1); CHLORIDE 94 mmol/L (98-107); CREATININE 1.3 mg/dL (0.6-1.3); GLUCOSE 139 mg/dL (74-106); POTASSIUM 3.5 mmol/L (3.5-5.1); SODIUM SERUM 142 mmol/L (136-145); UREA NITROGEN, BLOOD 28 mg/dL (7-18)
[2017-02-27 05:54] LABS: CARBON DIOXIDE 49 mmol/L (21-32)
[2017-02-27] MEDS: FERROUS SULFATE (325 MG) 325 MG/TAB TABLET PO SCH (08:51)
[2017-02-27] MEDS: AMIODARONE HCL 200 MG TABLET PO SCH (08:52)
[2017-02-27] MEDS: MELOXICAM 7.5 MG TABLET PO SCH (08:52)
[2017-02-27] MEDS: ASPIRIN 325 MG TABLET PO SCH (08:53)
[2017-02-27] MEDS: POTASSIUM CHLORIDE 20 MEQ TAB.PRT.SR PO SCH (08:53)
[2017-02-27] MEDS: SPIRONOLACTONE 25 MG TABLET PO SCH (08:53)
[2017-02-27] MEDS: TAMSULOSIN 0.4 MG CAP.SR.24H PO SCH (08:53)
[2017-02-27] MEDS: METOLAZONE 2.5 MG TABLET PO SCH (08:53)
[2017-02-27] MEDS: CLOPIDOGREL BISULFATE 75 MG TABLET PO SCH (08:53)
[2017-02-27] MEDS: methylPREDNISolone SOD SUCC 40 MG/ML VIAL IV SCH (08:54)
[2017-02-27] MEDS: PANTOPRAZOLE 40 MG TABLET.DR PO SCH (08:55)
[2017-02-27] MEDS: PHENYTOIN EXTENDED RELEASE 100 MG CAPSULE PO SCH ×3 (08:55→18:16)
[2017-02-27] MEDS: SERTRALINE HCL 25 MG TABLET PO SCH (12:04)
[2017-02-27] MEDS: RANEXA 500 MG PO SCH (17:00)
[2017-02-27 17:14] LABS: ABG BASE EXCESS 18.9 mmol/L; ABG PH 7.451 (7.350-7.450); ABG PO2 68.6 mmHg (75.0-100.0); COHb 1.1 % (0.5-1.5); MetHb 0.5 % (0.0-1.5); O2Hb 90.5 % (94.0-97.0); SITE, ABG Right Radial; VENT MODE, BG NASAL CANNULA
[2017-02-27] MEDS: FUROSEMIDE 40 MG TABLET PO SCH (18:16)
[2017-02-27] MEDS ORDERED: methylPREDNISolone SOD SUCC 40 MG/ML VIAL IV SCH (21:00)
[2017-02-27] MEDS: OLANZAPINE 2.5 MG TABLET PO SCH (21:49)
[2017-02-27] MEDS: ENOXAPARIN SODIUM 40 MG/0.4 ML DISP.SYRIN SQ SCH (21:50)
[2017-02-28] VITALS: BP 120/63
[2017-02-28] MEDS: IPRATROPIUM NEB FS 0.5 MG/2.5 ML AMPUL.NEB NEB SCH ×4 (02:08→19:29)
[2017-02-28] MEDS: ALBUTEROL FS 2.5 MG/0.5 ML VIAL.NEB NEB SCH ×4 (02:08→19:29)
[2017-02-28 04:00] VITALS: BP 111/60
[2017-02-28 07:24] LABS: HEMATOCRIT 32 % (39-51); HEMOGLOBIN 10.1 g/dL (13.5-17.5); LYMPHOCYTES # (AUTO) 0.5 /CMM (0.8-4.8); LYMPHOCYTES % (AUTO) 5.4 % (20.0-44.0); MEAN CORPUSCULAR HEMOGLOBIN 23 PG (26.0-33.0); MEAN CORPUSCULAR HGB CONC 31 g/dl (31.0-36.0); MEAN CORPUSCULAR VOLUME 74 fL (80-96); MONOCYTES # (AUTO) 0.5 /CMM (0.1-1.30); NEUTROPHILS % (AUTO) 89.6 % (43.0-81.0); PLATELET COUNT (AUTO) 374 /CMM (150-450); RDW COEFFICIENT OF VARIATION 16.3 (11.5-15.0); RED BLOOD CELL COUNT(AUTO) 4.39 MIL/uL (4.5-6.0); WHITE BLOOD COUNT (AUTO) 10.1 K/uL (4.3-11.0)
[2017-02-28 07:32] LABS: CALCIUM, SERUM 9.1 mg/dL (8.5-10.1); CHLORIDE 90 mmol/L (98-107); CREATININE 1.5 mg/dL (0.6-1.3); GLUCOSE 117 mg/dL (74-106); MAGNESIUM 1.3 mg/dL (1.8-2.4); POTASSIUM 3.2 mmol/L (3.5-5.1); SODIUM SERUM 138 mmol/L (136-145); UREA NITROGEN, BLOOD 38 mg/dL (7-18)
[2017-02-28 07:34] LABS: CARBON DIOXIDE 43 mmol/L (21-32)
[2017-02-28 08:00] VITALS: BP 125/67
[2017-02-28] MEDS: POTASSIUM CHLORIDE 20 MEQ TAB.PRT.SR PO SCH (08:27)
[2017-02-28] MEDS: SPIRONOLACTONE 25 MG TABLET PO SCH (08:27)
[2017-02-28] MEDS: PANTOPRAZOLE 40 MG TABLET.DR PO SCH (08:27)
[2017-02-28] MEDS: TAMSULOSIN 0.4 MG CAP.SR.24H PO SCH (08:27)
[2017-02-28] MEDS: AMIODARONE HCL 200 MG TABLET PO SCH (08:28)
[2017-02-28] MEDS: CLOPIDOGREL BISULFATE 75 MG TABLET PO SCH (08:28)
[2017-02-28] MEDS: SERTRALINE HCL 25 MG TABLET PO SCH (08:28)
[2017-02-28] MEDS: METOLAZONE 2.5 MG TABLET PO SCH (08:28)
[2017-02-28] MEDS: ASPIRIN 325 MG TABLET PO SCH (08:28)
[2017-02-28] MEDS: PHENYTOIN EXTENDED RELEASE 100 MG CAPSULE PO SCH ×3 (08:28→16:45)
[2017-02-28] MEDS: HYDROGEL DRESSING 90 GM TUBE TP SCH (08:29)
[2017-02-28] MEDS: FERROUS SULFATE (325 MG) 325 MG/TAB TABLET PO SCH (08:29)
[2017-02-28] MEDS: MECLIZINE HCL 12.5 MG TABLET PO PRN (08:29)
[2017-02-28] MEDS: RANEXA 500 MG PO SCH ×2 (08:29→16:47)
[2017-02-28] MEDS ORDERED: POTASSIUM CHLORIDE 20 MEQ TAB.PRT.SR PO ONE (08:30)
[2017-02-28] MEDS: MELOXICAM 7.5 MG TABLET PO SCH (08:36)
[2017-02-28] MEDS ORDERED: IV SET PRIMARY PUMP SET 1 EA INFUS.SET MC ONE ×2 (08:42→13:38)
[2017-02-28 08:57] LABS: LYMPHOCYTES % (MANUAL) 7 % (16-48); MONOCYTES % (MANUAL) 5 % (0-11.0); NEUTROPHILS % (MANUAL) 88 (42-76)
[2017-02-28] MEDS ORDERED: methylPREDNISolone SOD SUCC 40 MG/ML VIAL IV SCH (09:00)
[2017-02-28] MEDS: Magnesium 1GM/D5W 100ML PREMIX 100 ML IV SCH ×3 (09:55→12:16)
[2017-02-28] MEDS ORDERED: POTASSIUM CHLORIDE 20 MEQ TAB.PRT.SR PO SCH (10:00)
[2017-02-28 12:00] VITALS: BP 128/65
[2017-02-28] MEDS ORDERED: LEVOFLOXACIN 750 MG /D5W 150ML 750 MG in PREMIX 1 EA IV SCH (13:00)
[2017-02-28] MEDS: DIVALPROEX SODIUM 125 MG CAP.SPRINK PO SCH ×2 (13:40→21:31)
[2017-02-28 16:00] VITALS: BP 110/56
[2017-02-28] MEDS: FUROSEMIDE 40 MG TABLET PO SCH (17:03)
[2017-02-28 20:00] VITALS: BP 116/63
[2017-02-28] MEDS: methylPREDNISolone SOD SUCC 40 MG/ML VIAL IV SCH (21:31)
[2017-02-28] MEDS: ENOXAPARIN SODIUM 40 MG/0.4 ML DISP.SYRIN SQ SCH (21:33)
[2017-03-01] VITALS: BP 135/69
[2017-03-01] MEDS: ALBUTEROL FS 2.5 MG/0.5 ML VIAL.NEB NEB SCH ×3 (01:24→14:06)
[2017-03-01] MEDS: IPRATROPIUM NEB FS 0.5 MG/2.5 ML AMPUL.NEB NEB SCH ×3 (01:24→14:06)
[2017-03-01 04:00] VITALS: BP 131/75
[2017-03-01 07:33] LABS: CHLORIDE 87 mmol/L (98-107); CREATININE 1.4 mg/dL (0.6-1.3); GLUCOSE 114 mg/dL (74-106); MAGNESIUM 2.1 mg/dL (1.8-2.4); POTASSIUM 3.3 mmol/L (3.5-5.1); SODIUM SERUM 134 mmol/L (136-145); UREA NITROGEN, BLOOD 39 mg/dL (7-18)
[2017-03-01 07:51] LABS: CARBON DIOXIDE 47 mmol/L (21-32)
[2017-03-01 08:00] VITALS: BP 116/68
[2017-03-01] MEDS: PANTOPRAZOLE 40 MG TABLET.DR PO SCH (08:11)
[2017-03-01] MEDS: CLOPIDOGREL BISULFATE 75 MG TABLET PO SCH (08:12)
[2017-03-01] MEDS: TAMSULOSIN 0.4 MG CAP.SR.24H PO SCH (08:12)
[2017-03-01] MEDS: SERTRALINE HCL 25 MG TABLET PO SCH (08:12)
[2017-03-01] MEDS: DIVALPROEX SODIUM 125 MG CAP.SPRINK PO SCH (08:12)
[2017-03-01] MEDS: methylPREDNISolone SOD SUCC 40 MG/ML VIAL IV SCH (08:12)
[2017-03-01] MEDS: FERROUS SULFATE (325 MG) 325 MG/TAB TABLET PO SCH (08:12)
[2017-03-01] MEDS: PHENYTOIN EXTENDED RELEASE 100 MG CAPSULE PO SCH ×2 (08:12→12:06)
[2017-03-01] MEDS: ASPIRIN 325 MG TABLET PO SCH (08:12)
[2017-03-01] MEDS: POTASSIUM CHLORIDE 20 MEQ TAB.PRT.SR PO SCH (08:12)
[2017-03-01] MEDS: AMIODARONE HCL 200 MG TABLET PO SCH (08:13)
[2017-03-01] MEDS: MELOXICAM 7.5 MG TABLET PO SCH (08:13)
[2017-03-01] MEDS: SPIRONOLACTONE 25 MG TABLET PO SCH (08:13)
[2017-03-01] MEDS: METOLAZONE 2.5 MG TABLET PO SCH (08:13)
[2017-03-01] MEDS: HYDROGEL DRESSING 90 GM TUBE TP SCH (08:14)
[2017-03-01] MEDS: RANEXA 500 MG PO SCH (08:22)
[2017-03-01 09:24] VITALS: BP 116/68
[2017-03-01] MEDS ORDERED: POTASSIUM CHLORIDE 20 MEQ TAB.PRT.SR PO ONE (11:30)
[2017-03-01 12:00] VITALS: BP 106/73
[2017-03-01] MEDS ORDERED: predniSONE 10 MG TABLET PO SCH (15:30)
== END 2017-03-01 16:00 | disposition home health service (06) | DRG 140 ==
LOC: ER 10:47 → ICUOV 12:54 → TELE-TD 02-27 16:23 → TELE1 02-28 08:32 → MEDSG1 03-01 12:52
PROVIDERS: ADMIT Legal Medicine; ATTEND Legal Medicine
PROC: 5A09457 Assistance with Respiratory Ventilation, 24-96 Consecutive Hours, Continuous Positive Airway Pressure (ICD-10-PCS; principal; 2017-02-26)
DX: J44.1 Chronic obstructive pulmonary disease with (acute) exacerbation (principal); J96.02 Acute respiratory failure with hypercapnia; N17.0 Acute kidney failure with tubular necrosis; I11.0 Hypertensive heart disease with heart failure; I50.32 Chronic diastolic (congestive) heart failure; G30.9 Alzheimer's disease, unspecified; F05 Delirium due to known physiological condition; D72.829 Elevated white blood cell count, unspecified; E66.2 Morbid (severe) obesity with alveolar hypoventilation; F02.80 Dementia in other diseases classified elsewhere, unspecified severity, without behavioral disturbance, psychotic disturbance, mood disturbance, and anxiety; F41.9 Anxiety disorder, unspecified; G40.909 Epilepsy, unspecified, not intractable, without status epilepticus; G47.33 Obstructive sleep apnea (adult) (pediatric); K21.9 Gastro-esophageal reflux disease without esophagitis; Z95.1 Presence of aortocoronary bypass graft; Z95.810 Presence of automatic (implantable) cardiac defibrillator; I25.10 Atherosclerotic heart disease of native coronary artery without angina pectoris; E87.6 Hypokalemia; F39 Unspecified mood [affective] disorder; F01.50 Vascular dementia, unspecified severity, without behavioral disturbance, psychotic disturbance, mood disturbance, and anxiety; Z79.899 Other long term (current) drug therapy; Z68.30 Body mass index [BMI] 30.0-30.9, adult; S30.810A Abrasion of lower back and pelvis, initial encounter; X58.XXXA Exposure to other specified factors, initial encounter; Y93.9 Activity, unspecified; Y92.009 Unspecified place in unspecified non-institutional (private) residence as the place of occurrence of the external cause
CPT/HCPCS: 36415; 36600; 71010-TC; 80048-TC; 80076-TC; 82803-TC; 83735-TC; 83880; 84443-TC; 84484-TC; 85025-TC; 87081-TC; 94799-TC; 97001-TC; 97116-TC; 97530-TC; A4216; A4606; A6248; A6402; J1100; J1650; J1956; J2920; J3475; J8597; Z7610

== ENCOUNTER 2017-05-28 14:51 | Inpatient (IN) | payer MEDICARE, OTHER ==
[2017-05-28] VITALS (19 sets, daily range): BP systolic 86–156; BP diastolic 25–100
[~2017-05-28] VITALS: Ht 172.7 cm; Wt 90.3 kg
[~2017-05-28 14:51] MED LIST changes: -ALBU8.5H2 INH; -BISA5TAB10 PO; +BUDE10.22 INH; -CALC1CAP21 PO; -CYAN10006 IM; -ERGO500047 PO; -FLUT1DIS3 INH; -IPRA42SP2 BNOSTRILS; -NITR0.4T SL; -SENN8.6T6 PO; -TIOT4MIS3 IH
--- NOTE | 2017-05-28 14:58 | NUR ---
PT BIB RA C/O HYPOXIA AND SOB. BREATHING SOUNDS VERY DIMINISHED. PER REPORT, PT WAS ON CPAP AT 4L UPON EMS ARRIVAL AND LETHARGIC. PLACED ON CPAP AT 25L AND PT BECAME ALERT AND SOMEWHAT AGITATED. PT WAS TOLERATING ON NRB UPON ARRIVAL, WITH OCCAISONAL PERIODS OF LETHARGY. SKIN WARM NONDIAPHORETIC. PT UNABLE OR UNWILLING TO ANSWER QUESTIONS APPROPRIATELY AT THIS TIME. IN ER BED 07 ON MONITOR. RT PAGED. MD AT BEDSIDE.
[2017-05-28] MEDS ORDERED: methylPREDNISolone SOD SUCC 125 MG/2ML VIAL IV ONE (15:00)
[2017-05-28] MEDS ORDERED: ALBUTEROL FS 2.5 MG/3 ML VIAL.NEB NEB ONE (15:00)
[2017-05-28] MEDS ORDERED: IPRATROPIUM NEB FS 0.5 MG/2.5 ML AMPUL.NEB NEB ONE (15:00)
[2017-05-28] MEDS ORDERED: methylPREDNISolone SOD SUCC 125 MG/2ML VIAL ONE (15:03)
--- NOTE | 2017-05-28 15:13 | NUR ---
BREATH SOUNDS DIMINISHED BILATERAL. PT. PLACED ON BIPAP DUE TO INCREASED WOB. BIPAP SETTINGS BELLOW ORDER: IPAP 15 EPAP 5 FIO2 60% Addendum: 05/28/17 at 1515 by CITLALLI HILL RT Amended: Links added.
[2017-05-28] MEDS ORDERED: ALBUTEROL FS 2.5 MG/3 ML VIAL.NEB ONE (15:19)
[2017-05-28] MEDS ORDERED: IPRATROPIUM NEB FS 0.5 MG/2.5 ML AMPUL.NEB ONE (15:20)
[2017-05-28 15:22] LABS: BASOPHILS % (AUTO) 0.3 % (0.0-2.0); EOSINOPHILS % (AUTO) 0.3 % (0.0-6.0); HEMATOCRIT 37 % (39-51); LYMPHOCYTES # (AUTO) 0.5 /CMM (0.8-4.8); MEAN CORPUSCULAR HEMOGLOBIN 23 PG (26.0-33.0); MEAN CORPUSCULAR HGB CONC 30 g/dl (31.0-36.0); MEAN CORPUSCULAR VOLUME 76 fL (80-96); MONOCYTES # (AUTO) 1.3 /CMM (0.1-1.30); MONOCYTES % (AUTO) 10.3 % (2.0-12.0); NEUTROPHILS # (AUTO) 10.4 /CMM (1.8-8.9); NEUTROPHILS % (AUTO) 85.1 % (43.0-81.0); PLATELET COUNT (AUTO) 230 /CMM (150-450); RED BLOOD CELL COUNT(AUTO) 4.86 MIL/uL (4.5-6.0); WHITE BLOOD COUNT (AUTO) 12.2 K/uL (4.3-11.0)
[2017-05-28] MEDS ORDERED: OLANZAPINE 10 MG VIAL IM ONE (15:30)
[2017-05-28] MEDS ORDERED: LORAZEPAM INJ 2 MG/ML VIAL IV ONE (15:30)
[2017-05-28 15:40] LABS: TROPONIN I < 0.017 ng/mL (0.00-0.056)
[2017-05-28 15:44] LABS: ABG BASE EXCESS 10.3 mmol/L; ABG OXYGEN SATURATION 95.2 % (92.0-98.5); ABG PCO2 92.6 mmHg (35.0-45.0); ABG PH 7.257 (7.350-7.450); ABG PO2 92.3 mmHg (75.0-100.0); AaDO2 233.6 mmHg; COHb 1.8 % (0.5-1.5); MetHb 0.1 % (0.0-1.5); O2Hb 93.4 % (94.0-97.0); PEEP,BG 5 cm H2O; SITE, ABG Left Brachial; VENT MODE, BG 5 MINUTES POS BIPAP
[2017-05-28 15:45] LABS: ALANINE AMINOTRANSFERASE 19 U/L (12-78); ALKALINE PHOSPHATASE 109 U/L (46-116); ASPARTATE AMINOTRANSFERASE 31 U/L (15-37); B-TYPE NATRIURETIC PEPTIDE 1717 PG/ML (0-125); BILIRUBIN,DIRECT 0.1 mg/dL (0.0-0.2); BILIRUBIN,TOTAL 0.3 mg/dL (0.2-1.0); CALCIUM, SERUM 8.8 mg/dL (8.5-10.1); CHLORIDE 101 mmol/L (98-107); CREATININE 1.5 mg/dL (0.6-1.3); GLUCOSE 123 mg/dL (74-106); POTASSIUM 4.9 mmol/L (3.5-5.1); SODIUM SERUM 142 mmol/L (136-145); TOTAL PROTEIN, SERUM 7.7 g/dL (6.4-8.2); UREA NITROGEN, BLOOD 26 mg/dL (7-18)
[2017-05-28 15:47] LABS: CARBON DIOXIDE 42 mmol/L (21-32)
--- NOTE | 2017-05-28 16:10 | NUR ---
FAMILY UPDATED ON PLAN OF CARE. IN AGREEMENT ON HOLDING ATIVAN UNLESS NECESSARY FOR SEDATION. AT THIS POINT, PT RESTING QUIETLY, TOLERATING BIPAP. VSS.
--- NOTE | 2017-05-28 16:23 | NUR ---
CALLED DR KENT OFFICE, ON THE PHONE WITH DR MONTALVO.
--- NOTE | 2017-05-28 16:29 | NUR ---
CALLED NURSING SUP FOR ICU BED
--- NOTE | 2017-05-28 16:43 | NUR ---
REPORT GIVEN TO ROCHELLE RN FOR ADMISSION TO ICU RM 251
--- NOTE | 2017-05-28 16:50 | NUR ---
ICU/RN: RECEIVED REPORT FROM KAYLEEN ELLIOTT IN ER. PT WILL BE PLACED IN 251, ROOM PREPARED.
[2017-05-28 16:56] LABS: INR 0.97 (0.87-1.13); PROTHROMBIN TIME 10.1 SECS (9.5-12.7)
--- NOTE | 2017-05-28 17:35 | NUR ---
TRANSPORTED TO ICU 251 IN CRITICAL CONDITION VIA ACLS PROTOCOL WITH RT AT BEDSIDE
--- NOTE | 2017-05-28 17:40 | NUR ---
ICU/GRAIN BUYER NOTE RECEIVED PT FROM ER. PT TRANSFERRED ON BIPAP, WITH SETTINGS ORDERED BY MD. PT CONTINUES TO BE LETHARGIC, RESPONDS TO PAINFUL STIMULI. PT ON TELE, SINUS RHYTHM, 78 WITH BBB, AICD IN PLACE. PIV'S PATENT AND INTACT, NO S/S OF INFECTION OR INFILTRATION NOTED. SKIN ASSESSED, PHOTOS TAKEN AND PLACED IN CHART. ABG DONE IN ER, WILL REPEAT. AWAITING FOR MD ADMITTING ORDERS FROM . ALL NEEDS WILL BE MET. BED IN LOW POSITION, SIDE RAILS UP, CALL LIGHT WITHIN REACH. WILL CONTINUE CARE.
--- NOTE | 2017-05-28 17:43 | NUR ---
PT TRANSFERRED FROM ER TO ICU 251. PT. USED SAME BIPAP, PLUGGED INTO RED OUTLET WITH ALARMS ON AND FUNCTIONING. Addendum: 05/28/17 at 1744 by CITLALLI HILL RT Amended: Links added.
--- NOTE | 2017-05-28 18:00 | NUR ---
ICU/RN: UNABLE TO INSERT BEARDEN. ATTEMPTED WITH OCCUP THERAPIST. WILL CONTINUE TO MONITOR AND ASSESS
--- NOTE | 2017-05-28 18:54 | NUR ---
ICU/RN ENDING NOTES,AM REPORT ENDORSED TO NIGHT NURSE FOR CONTINUATION OF CARE. PT CONTINUES TO BE LETHARGIC, RESPONDS TO PAINFUL STIMULI. PT ON BIPAP SETTINGS 15/5, RATE 8, FIOS 60%, TOLERATING WELL, MAINTAINING 02 SAT >92%. WILL REDO ABG AT 1999. RECEIVED ADMITTING ORDERS FROM . WILL CONTINUE CARE. SAFETY MEASURES TAKEN, BED IN LOW POSITION, SIDE RAILS UP, CALL LIGHT WITHIN REACH.
--- NOTE | 2017-05-28 19:00 | NUR ---
HUMANITIES AND LANGUAGES PROFESSOR INITIAL NOTE RECEIVED REPORT FROM ROCHELLE RN. PT IN BED ON BIPAP SETTING / RATE 8 FIO2 60%. PT IS NOT RESPONDING TO PAINFUL STIMULI. LUNG SOUNDS DIMINISHED. BOWEL SOUNDS PRESENT. INCONTINENT WITH DIAPER INTACT. RIGHT WRIST 18G INTACT. LEFT WRIST IV INFILTRATED. ABG ORDERED FOR 1999, CALLED ABG TO DO STAT ABG-DUE TO PATIENTS PRESENTATION. WILL CONTINUE TO MONITOR.
--- NOTE | 2017-05-28 19:19 | NUR ---
ORTHOPEDIC TECH ABG DONE. PH 7.1 CO2 145 PO2 94 HCO3 44. 1919- DR BHATIA CALLED WITH ABG RESULTS. ORDERED FOR INTUBATION. 1921- CALLED FAMILY INFORM OF STATUS AND ASK IF INTUBATION WAS OKAY WITH THEM. FAMILY AGREED TO INTUBATE AT THIS TIME. 1923 RT NOTIFIED TO INTUBATE. ER PHYSICIAN CALLED AND REQUESTED TO INTUBATE.
[2017-05-28 19:25] LABS: ABG BASE EXCESS 11.1 mmol/L; ABG PCO2 145.4 mmHg (35.0-45.0); ABG PH 7.107 (7.350-7.450); ABG PO2 95.6 mmHg (75.0-100.0); AaDO2 172.3 mmHg; COHb 1.8 % (0.5-1.5); MetHb 0.3 % (0.0-1.5); SITE, ABG Right Radial
[2017-05-28] MEDS: ALBUTEROL FS 2.5 MG/3 ML VIAL.NEB NEB SCH (19:30)
[2017-05-28] MEDS ORDERED: IPRATROPIUM NEB FS 0.5 MG/2.5 ML AMPUL.NEB NEB PRN (19:30)
[2017-05-28] MEDS ORDERED: LEVOFLOXACIN 500 MG /D5W 100ML 500 MG in PREMIX 1 EA IV ONE (19:30)
[2017-05-28] MEDS: IPRATROPIUM NEB FS 0.5 MG/2.5 ML AMPUL.NEB NEB SCH (19:30)
[2017-05-28] MEDS ORDERED: ALBUTEROL FS 2.5 MG/3 ML VIAL.NEB NEB PRN (19:30)
[2017-05-28] MEDS ORDERED: PANTOPRAZOLE 40 MG VIAL IV SCH (19:30)
--- NOTE | 2017-05-28 19:30 | NUR ---
CLOTH SHEARER ER DOCTOR AT BEDSIDE FOR INTUBATION. RT AT BEDSIDE. PT GIVEN ETOMIDATE 10 IV. PT SUCCESSFULLY INTUBATED, ET 7.5 LIP 23. LUNG SOUNDS RHONCHI WITH THICK WHITE SECRETIONS. XRAY ORDERED FOR ETT PLACEMENT. PROPOFOL ORDERED AND BILATERAL WRIST RESTRAINTS. WILL CONTINUE TO MONITOR.
--- NOTE | 2017-05-28 19:50 | NUR ---
STEREOPLOTTER OPERATORCITRIX ENGINEER AT BEDSIDE. PT ON PROPOFOL, IS MOVING AND RESTLESS.
[2017-05-28] MEDS ORDERED: PROPOFOL 100 ML IV PRN (20:00)
[2017-05-28] MEDS ORDERED: Potassium Chloride 10 MEQ in IV D5/0.45 NACL 1,000 ML IV PRN (20:30)
[2017-05-28] MEDS: FAMOTIDINE/PF INJ 20 MG/2 ML VIAL IV SCH (20:59)
[2017-05-28] MEDS: HEPARIN SODIUM, PORCINE 5000 UNITS/1 ML VIAL SQ SCH (21:00)
--- NOTE | 2017-05-28 21:00 | NUR ---
TNT POWDER WORKER LEFT FOREARM IV 18G PLACED.
--- NOTE | 2017-05-28 21:30 | NUR ---
TONG HOOKER FOLLOW UP ABG DONE. PH 7.45 PCO2 57.3 PO2 58.3 HCO3 39.6. 2144- DR BHATIA CALLED VENT SETTING CHANGED TO AC 16 FIO2 55% TV 500. RT AWARE. WILL CONTINUE TO MONITOR.
[2017-05-28 21:41] LABS: ABG BASE EXCESS 13.7 mmol/L; ABG OXYGEN SATURATION 91.1 % (92.0-98.5); ABG PCO2 57.3 mmHg (35.0-45.0); ABG PH 7.457 (7.350-7.450); ABG PO2 58.3 mmHg (75.0-100.0); COHb 1.6 % (0.5-1.5); MetHb 0.2 % (0.0-1.5); O2Hb 89.5 % (94.0-97.0); SITE, ABG Right Radial
[2017-05-28] MEDS: Z GUARD REMEDY 2 OZ OINT TP SCH (21:42)
[2017-05-28] MEDS: PROPOFOL 100 ML IV PRN (22:03)
[2017-05-28] MEDS ORDERED: LEVO50TA8 PO (22:21)
[2017-05-28] MEDS ORDERED: SPIR25TA4 PO (22:21)
[2017-05-28] MEDS ORDERED: DIVA500T54 PO (22:21)
[2017-05-28] MEDS ORDERED: IPRA3AMP IH (22:21)
[2017-05-28] MEDS ORDERED: SENN-18 PO (22:21)
[2017-05-28] MEDS ORDERED: SERT50TA12 PO (22:21)
[2017-05-28] MEDS ORDERED: ERGO500047 PO (22:21)
[2017-05-29] VITALS (102 sets, daily range): BP systolic 67–155; BP diastolic 37–92
[2017-05-29] MEDS: methylPREDNISolone SOD SUCC 40 MG/ML VIAL IV SCH ×5 (00:21→23:54)
[2017-05-29] MEDS ORDERED: IV NS 0.9% 1,000 ML IV PRN (00:30)
--- NOTE | 2017-05-29 00:30 | NUR ---
AUTOMOTIVE FLEET SUPERVISOR DR BHATIA CALLED ABOUT LOW BP. ORDERS RECEIVED. WILL CARRY OUT. 1L NS BOLUS, IF BP NOT IMPROVED START LEVOPHED PER PROTOCOL. WILL CONTINUE TO MONITOR.
[2017-05-29] MEDS ORDERED: NOREPINEPHRINE 4 MG/4 ML AMPUL IV ONE (01:35)
[2017-05-29] MEDS: ALBUTEROL FS 2.5 MG/3 ML VIAL.NEB NEB SCH ×4 (01:39→19:24)
[2017-05-29] MEDS: IPRATROPIUM NEB FS 0.5 MG/2.5 ML AMPUL.NEB NEB SCH ×4 (01:39→19:24)
--- NOTE | 2017-05-29 01:40 | NUR ---
WATERPROOF COATING MACHINE TENDER BP IMPROVED IMMEDIATELY FOLLOWING BOLUS. BP DROPPED TO 85 SHORTLY AFTER. RECHECKED BP MANUALLY BP 92/54. WILL START LEVOPHED TO KEEP SBP >90. WILL CONTINUE TO MONITOR.
[2017-05-29] MEDS: NOREPINEPHRINE 16 MG in IV D5W 500 ML IV PRN ×2 (01:41→17:07)
[2017-05-29] MEDS: PROPOFOL 100 ML IV PRN ×8 (01:42→23:39)
--- NOTE | 2017-05-29 01:59 | NUR ---
CARE AIDE- NON ADMIN NON ADMIN FOR PATIENT SAFETY
[2017-05-29 04:52] LABS: HEMATOCRIT 34 % (39-51); LYMPHOCYTES # (AUTO) 0.5 /CMM (0.8-4.8); LYMPHOCYTES % (AUTO) 4.4 % (20.0-44.0); MEAN CORPUSCULAR HEMOGLOBIN 23 PG (26.0-33.0); MEAN CORPUSCULAR HGB CONC 30 g/dl (31.0-36.0); MEAN CORPUSCULAR VOLUME 76 fL (80-96); MONOCYTES # (AUTO) 0.3 /CMM (0.1-1.30); MONOCYTES % (AUTO) 2.8 % (2.0-12.0); NEUTROPHILS # (AUTO) 10.3 /CMM (1.8-8.9); NEUTROPHILS % (AUTO) 92.8 % (43.0-81.0); PLATELET COUNT (AUTO) 206 /CMM (150-450); RDW COEFFICIENT OF VARIATION 18.1 (11.5-15.0); RED BLOOD CELL COUNT(AUTO) 4.54 MIL/uL (4.5-6.0); WHITE BLOOD COUNT (AUTO) 11.1 K/uL (4.3-11.0)
[2017-05-29 05:28] LABS: CALCIUM, SERUM 8.4 mg/dL (8.5-10.1); CARBON DIOXIDE 36 mmol/L (21-32); CHLORIDE 102 mmol/L (98-107); CREATININE 1.3 mg/dL (0.6-1.3); GLUCOSE 263 mg/dL (74-106); MAGNESIUM 1.7 mg/dL (1.8-2.4); POTASSIUM 5.2 mmol/L (3.5-5.1); SODIUM SERUM 141 mmol/L (136-145); UREA NITROGEN, BLOOD 23 mg/dL (7-18)
[2017-05-29 05:35] LABS: HEMOGLOBIN 10.4 g/dL (13.5-17.5)
--- NOTE | 2017-05-29 07:00 | NUR ---
TOOL AND DIE MAKER LEVEL FIVE- RECEIVED PT SEDATED AND INTUBATED, ETT 7.5, 23 @ THE LIP. RESPIRATIONS EVEN AND UNLABORED, NO SOB OR DISTRESS PRESENT. BEDSIDE MONITOR REVEALS SINUS RHYTHM, HR= 70. TWO IVS PRESENT: 1) R WRIST 18G AND 2) RFA 20G RUNNING LEVOPHED @ 2 MCG/MIN AND DIPRIVAN @ 40 MCG/MIN. PT REMAINS NPO AT THIS TIME. SAFETY MEASURES TAKEN: BED LOCKED AND IN LOW POSITION, SIDE RAILS UP X2 AND BED ALARM ON, WILL CONTINUE TO MONITOR.
--- NOTE | 2017-05-29 08:10 | NUR ---
SENIOR SOFTWARE DEVELOPMENT MANAGER- SEDATION VACATION DONE. 0810- DIPRIVAN DECREASED FROM 40 MCG/MIN TO 35 MCG/MIN. PT CALM SO FAR. 0825- DIPRIVAN DECREASED FROM 35 MCG/MIN TO 30 MCG/MIN. PT AWAKE BUT UNABLE TO FOLLOW COMMANDS. HOWEVER, PT DISPLAYING S/S OF DISCOMFORT, RESTLESS, MOVING BLE AND BUE. PT DISPLAYING TACHYPNEA AND TACHYCARDIA. DIPRIVAN RE-STARTED AT PREVIOUS RATE. WILL CONTINUE TO MONITOR.
[2017-05-29] MEDS: IV NS 0.9% 1,000 ML IV PRN ×2 (08:21→18:08)
--- NOTE | 2017-05-29 08:25 | NUR ---
WOUND CARE CONSULT: PT PRESENTS WITH STAGE 2 ULCERS TO RT BUTTOCK WITH SCARRING TO SACRAL & LEFT BUTTOCK AREAS, PRESENT ON ADMISSION. PT ALSO NOTED TO HAVE RT GROIN EXCORIATION AND SOME REDNESS WITH RESOLVING EDEMA TO LOWER LEGS. LEGS ELEVATED ON PILLOWS. RECOMMENDATIONS MADE FOR WOUND CARE AND SKIN PROTECTION. DISCUSSED WITH NURSING STAFF. PT ON FIRST STEP MATTRESS. ALL SKIN PROTECTION MEASURES IN PLACE. WILL SEE PRN. ARCINIEGA IN AGREEMENT WITH PLAN OF CARE. Addendum: 05/29/17 at 0828 by COMFORT MERCADO WNDNU Amended: Links added.
[2017-05-29] MEDS ORDERED: HYDROGEL DRESSING 90 GM TUBE TP PRN (08:30)
[2017-05-29 09:29] LABS: TROPONIN I 0.011 ng/mL (0.00-0.056)
[2017-05-29] MEDS: HYDROGEL DRESSING 90 GM TUBE TP SCH (09:55)
[2017-05-29] MEDS: Z GUARD REMEDY 2 OZ OINT TP SCH ×2 (09:56→21:18)
[2017-05-29] MEDS: FAMOTIDINE/PF INJ 20 MG/2 ML VIAL IV SCH ×2 (09:56→21:18)
[2017-05-29] MEDS: HEPARIN SODIUM, PORCINE 5000 UNITS/1 ML VIAL SQ SCH ×2 (10:00→21:21)
[2017-05-29 10:07] LABS: ABG BASE EXCESS 6.8 mmol/L; ABG OXYGEN SATURATION 95.3 % (92.0-98.5); ABG PCO2 42.8 mmHg (35.0-45.0); ABG PH 7.478 (7.350-7.450); ABG PO2 85.6 mmHg (75.0-100.0); AaDO2 186.6 mmHg; COHb 0.9 % (0.5-1.5); MetHb 0.5 % (0.0-1.5); SITE, ABG Right Radial; VT, ABG 500 mL
--- NOTE | 2017-05-29 10:15 | NUR ---
ACID LOADER- DR. BHATIA AT BEDSIDE. ASKED MD WHETHER OG TUBE NEEDS TO BE INSERTED AT THIS TIME. PER MD, KEEP PT NPO AND NO OGT. HE WILL RE-ASSESS PT'S NEED FOR OGT TOMORROW. ALL MEDS TO BE GIVEN IV. WILL CONTINUE TO MONITOR. Addendum: 05/29/17 at 1807 by JACKIE VALENTE RN DR. BHATIA ALSO AWARE PT'S K LEVEL THIS AM WAS 5.2. INFORMED MD DR. LAMAR ALREADY D/C'D PREVIOUS IVF ORDER OF D5 1/2NS +10 KCL TO NS @ 125 ML/HR. PER DR. BHATIA, DECREASE IVF TO 100 ML/HR. ORDER EDITED. WILL CONTINUE TO MONITOR.
[2017-05-29] MEDS ORDERED: LEVOFLOXACIN 750 MG /D5W 150ML 150 ML IV SCH (10:30)
[2017-05-29] MEDS ORDERED: ETOMIDATE 2 MG/ML VIAL IV ONE (10:50)
[2017-05-29] MEDS: LEVOTHYROXINE INJ 100 MCG VIAL IV SCH (11:31)
[2017-05-29] MEDS: Magnesium 1GM/D5W 100ML PREMIX 100 ML IV SCH ×2 (11:31→12:57)
--- NOTE | 2017-05-29 12:10 | NUR ---
MAMMOGRAPHY SUPERVISOR- PT HAS NOT VOIDED FOR 8 HOURS. BLADDER SCAN COMPLETED, RESULTS= 501. ATTEMPTED TO INSERT BEARDEN CATHETER 16 CANADIAN HOWEVER UNSUCCESSFUL, UNABLE TO INSERT. OBTAINED 6 CANADIAN AND 12 CANADIAN CATHETERS FROM CENTRAL SUPPLY. SUCCESSFUL IN INSERTING 6 CANADIAN CATHETER AND WAS ABLE TO ADVANCE BUT NO URINE DRAINAGE DUE TO SMALL LENGTH OF CATHETER. ATTEMPTED TO INSERT 12 CANADIAN AND WAS UNSUCCESSFUL. 1300- INFORMED DR. BHATIA OF PT RETAINING URINE AND UNABLE TO INSERT BEARDEN CATHETER. PER MD, HAVE OTHER NURSES ATTEMPT TO INSERT BEARDEN CATHETER. MD MADE AWARE KARENA CHARGE NURSE ATTEMPTED AND WAS UNSUCCESSFUL. ALSO MADE MD AWARE PT'S BLE HAVE INCREASED IN REDNESS & WARMTH. OBTAINED ORDER FOR BLE ULTRASOUND. WILL CONTINUE TO MONITOR.
--- NOTE | 2017-05-29 16:00 | NUR ---
TRUCK CRANE OPERATOR HELPER- COMPLETE BED BATH GIVEN TO PATIENT WITH ASSISTANCE FROM FRIEDA LEON. PT HAS SOAKED DIAPER WITH LARGE AMOUNT OF URINE. ALL LINEN CHANGED. WILL CONTINUE TO MONITOR.
--- NOTE | 2017-05-29 18:30 | NUR ---
CLINICAL INFORMATICS SPEC- MRSA SWAB OF NARES OBTAINED AND PLACED IN LAB SPECIMEN COLLECTION FRIDGE FOR PICK-UP. CALLED LAB TO MECHANICAL DRAFTER SPECIMEN. WILL CONTINUE TO MONITOR.
--- NOTE | 2017-05-29 19:30 | NUR ---
CASE MANAGEMENT RN INITIAL NOTE RECEIVED REPORT FROM JACKIE ELLIOTT. PT IN BED. INTUBATED AND SEDATED. LUNG SOUNDS RHONCHI. TOLERATING VENT SETTINGS. BOWEL SOUNDS PRESENT. ABDOMEN SOFT AND NON TENDER. INCONTINENT WITH DIAPER INTACT. PULSES PRESENT. BLE EDEMA. AWAITING BLE US TO R/O CELLULITIS. IV PATENT AND INTACT. BED IN LOW LOCKED POSITION. WILL CONTINUE TO MONITOR.
--- NOTE | 2017-05-29 20:31 | NUR ---
PT RECEIVED INTUBATED WITH 7.5 ETT SECURED AT 24CM AT THE LIP. PT TOLERATING VENT SETTINGS. SX'D FOR SML AMT OF WHITE SECRETIONS. VENT ALARMS SET AND AUDIBLE. AMBU BAG AT BEDSIDE. VENT PLUGGED INTO RED OUTLET. WILL CONTINUE TO MONITOR. Addendum: 05/29/17 at 2034 by ZAIN NAVARRETE RT Amended: Links added.
[2017-05-30] VITALS (74 sets, daily range): BP systolic 102–175; BP diastolic 28–101
--- NOTE | 2017-05-30 | NUR ---
SPRAY GUN REPAIRER HELPER PT IN BED. REMAINS INTUBATED. PROPOFOL HAS BEEN ADJUSTED THROUGHOUT THE SHIFT DUE TO PT AGITATION AND INCREASED BLOOD PRESSURE. SOFT WRIST RESTRAINTS REMOVED AND PASSIVE ROM PROVIDED. SOFT RESTRAINTS RE APPLIED. REPOSITIONED FOR COMFORT. BED IN LOW LOCKED POSITION. WILL CONTINUE TO MONITOR.
[2017-05-30] MEDS: ALBUTEROL FS 2.5 MG/3 ML VIAL.NEB NEB SCH ×4 (01:18→19:47)
[2017-05-30] MEDS: IPRATROPIUM NEB FS 0.5 MG/2.5 ML AMPUL.NEB NEB SCH ×4 (01:18→19:48)
[2017-05-30] MEDS: PROPOFOL 100 ML IV PRN ×2 (02:11→05:31)
[2017-05-30] MEDS: IV NS 0.9% 1,000 ML IV PRN (02:51)
--- NOTE | 2017-05-30 04:00 | NUR ---
TRAFFIC CONTROL TECHNICIAN PT IN BED. INTUBATED AND SEDATED. BED BATH GIVEN. ONE BM AND URINE IN DIAPER. CLEANED AND REPOSITIONED FOR COMFORT. BED IN LOW LOCKED POSITION. CALL LIGHT WITHIN REACH. WILL CONTINUE TO MONITOR.
[2017-05-30 04:59] LABS: HEMATOCRIT 36 % (39-51); HEMOGLOBIN 10.8 g/dL (13.5-17.5); LYMPHOCYTES # (AUTO) 0.3 /CMM (0.8-4.8); MEAN CORPUSCULAR HEMOGLOBIN 23 PG (26.0-33.0); MEAN CORPUSCULAR HGB CONC 30 g/dl (31.0-36.0); MEAN CORPUSCULAR VOLUME 75 fL (80-96); MONOCYTES # (AUTO) 0.9 /CMM (0.1-1.30); MONOCYTES % (AUTO) 5.3 % (2.0-12.0); NEUTROPHILS # (AUTO) 14.8 /CMM (1.8-8.9); NEUTROPHILS % (AUTO) 92.7 % (43.0-81.0); PLATELET COUNT (AUTO) 240 /CMM (150-450); RDW COEFFICIENT OF VARIATION 18.5 (11.5-15.0); RED BLOOD CELL COUNT(AUTO) 4.77 MIL/uL (4.5-6.0); WHITE BLOOD COUNT (AUTO) 15.9 K/uL (4.3-11.0)
[2017-05-30 05:16] LABS: ALANINE AMINOTRANSFERASE 15 U/L (12-78); ALBUMIN 2.4 g/dL (3.4-5.0); ALKALINE PHOSPHATASE 87 U/L (46-116); ASPARTATE AMINOTRANSFERASE 21 U/L (15-37); BILIRUBIN,TOTAL 0.4 mg/dL (0.2-1.0); CALCIUM, SERUM 8.3 mg/dL (8.5-10.1); CARBON DIOXIDE 35 mmol/L (21-32); CHLORIDE 105 mmol/L (98-107); CREATININE 1.2 mg/dL (0.6-1.3); GLUCOSE 113 mg/dL (74-106); MAGNESIUM 2.1 mg/dL (1.8-2.4); PHOSPHORUS 3.4 mg/dL (2.5-4.9); POTASSIUM 3.7 mmol/L (3.5-5.1); SODIUM SERUM 143 mmol/L (136-145); TOTAL PROTEIN, SERUM 6.8 g/dL (6.4-8.2); TROPONIN I 0.032 ng/mL (0.00-0.056); UREA NITROGEN, BLOOD 23 mg/dL (7-18)
[2017-05-30] MEDS: methylPREDNISolone SOD SUCC 40 MG/ML VIAL IV SCH ×3 (05:31→17:45)
--- NOTE | 2017-05-30 08:00 | NUR ---
FAMILY AT BEDSIDE. UPDATED ON PROGRESS. PT IS TITRATED OFF PROPOFOL. AWAKE AND COOPERATIVE. VENT SETTINGS CHANGED TO SIMV. SAT 95-98%. VSS. DENIED PAIN DENIES SOB.
[2017-05-30] MEDS ORDERED: DC PROPOFOL WHEN EXTUBATED XX PRN (09:00)
[2017-05-30] MEDS: FAMOTIDINE/PF INJ 20 MG/2 ML VIAL IV SCH ×2 (09:02→21:07)
[2017-05-30] MEDS: Z GUARD REMEDY 2 OZ OINT TP SCH ×2 (09:03→21:14)
[2017-05-30] MEDS: HYDROGEL DRESSING 90 GM TUBE TP SCH (09:03)
[2017-05-30] MEDS: HEPARIN SODIUM, PORCINE 5000 UNITS/1 ML VIAL SQ SCH ×2 (09:04→21:14)
--- NOTE | 2017-05-30 09:05 | NUR ---
BELIA OBTAINED. RESULT REPORTED TO DR DREW. OK TO EXTUBATE.
[2017-05-30 09:21] LABS: ABG BASE EXCESS 5.2 mmol/L; ABG OXYGEN SATURATION 93.6 % (92.0-98.5); ABG PCO2 51.6 mmHg (35.0-45.0); ABG PH 7.397 (7.350-7.450); ABG PO2 77.1 mmHg (75.0-100.0); AaDO2 112.5 mmHg; MetHb 0.3 % (0.0-1.5); O2Hb 92.4 % (94.0-97.0); PEEP,BG 5 cm H2O; SITE, ABG Right Radial; VENT MODE, BG SIMV 4 / PS 12; VT, ABG 500 mL
--- NOTE | 2017-05-30 09:30 | NUR ---
PT EXTUBATED. NOW ON 2LNC. SAT 95-97%. WILL CONTINUE TO MONITOR.
[2017-05-30] MEDS: LEVOTHYROXINE INJ 100 MCG VIAL IV SCH (09:32)
[2017-05-30] MEDS: LEVOFLOXACIN 750 MG /D5W 150ML 150 ML IV SCH (11:39)
[2017-05-30] MEDS ORDERED: MECLIZINE HCL 12.5 MG TABLET PO PRN (13:30)
[2017-05-30] MEDS ORDERED: Medication Not On Formulary EA (Ipratropium/Albuterol Sulfate (Duoneb 2.5-0.5 Mg/3 Ml So IH PRN (13:30)
[2017-05-30] MEDS ORDERED: DOCUSATE SODIUM 100 MG CAPSULE PO PRN (14:00)
[2017-05-30] MEDS ORDERED: LEVOFLOXACIN 750 MG /D5W 150ML 150 ML IV SCH (16:00)
[2017-05-30] MEDS ORDERED: SERTRALINE HCL 50 MG TABLET PO ONE (16:00)
[2017-05-30] MEDS: SOD FERRIC GLUC 125 MG in IV NS 0.9% 100 ML IV SCH (16:06)
[2017-05-30] MEDS: SERTRALINE HCL 50 MG TABLET PO SCH (16:12)
--- NOTE | 2017-05-30 16:46 | NUR ---
LARGE BM NOTED. PT ASSISTED WITH BED/ BATH. SKIN CARE. NOTED DO DROP SAT 70 %, CONFUSED PER FAMILY MEMBERS. STAT ABG OBTAINED. DR RAJENDRA ZURITA. FAMILY STATES THAT THEY WOULD LIKE TO CHANGE THE CODE STATUS TO DNR/DNI. PT INITIATED ON BIPAP.
--- NOTE | 2017-05-30 16:50 | NUR ---
RT PT APPEARED TO BE LETHARGIC AND STAT ABG WAS DONE. RESULTS ENDORSED TO DR. DREW AND PT PLACED ON BIPAP PER DR. DREW ORDERS. WILL CONTINUE TO MONITOR. Addendum: 05/30/17 at 1704 by ALMA FELIZ RT Amended: Links added.
[2017-05-30] MEDS: SENNOSIDES 8.6 MG TABLET PO SCH (17:46)
[2017-05-30] MEDS: AMIODARONE HCL 200 MG TABLET PO SCH (17:46)
[2017-05-30] MEDS: DIVALPROEX SODIUM 250 MG TABLET.DR PO SCH (17:46)
[2017-05-30] MEDS: PHENYTOIN EXTENDED RELEASE 100 MG CAPSULE PO SCH (17:48)
--- NOTE | 2017-05-30 17:57 | NUR ---
DR BHATIA NOTIFIED TO WANTS TO CHANGE STATUS TO DNR/DNI. ORDER FROM DR BHATIA OBTAINED. CO SIGNED WITH ROCHELLE. Addendum: 05/30/17 at 1948 by EDGAR CHAUDHARI RN DR BHATIA NOTIFIED THAT FAMILY WANTS TO CHANGE STATUS TO DNR/DNI. ORDER FROM DR BHATIA OBTAINED CO SIGNED WITH LEXI BYRD.
[2017-05-30 18:06] LABS: ABG BASE EXCESS 6.9 mmol/L; ABG OXYGEN SATURATION 94.1 % (92.0-98.5); ABG PCO2 62.1 mmHg (35.0-45.0); ABG PH 7.357 (7.350-7.450); AaDO2 96.4 mmHg; COHb 0.8 % (0.5-1.5); MetHb 0.3 % (0.0-1.5); O2Hb 93.1 % (94.0-97.0); SITE, ABG Right Radial
[2017-05-30 18:07] LABS: ABG BASE EXCESS 4.7 mmol/L; ABG OXYGEN SATURATION 89.4 % (92.0-98.5); ABG PCO2 84.3 mmHg (35.0-45.0); ABG PO2 72.1 mmHg (75.0-100.0); AaDO2 57.4 mmHg; COHb 0.8 % (0.5-1.5); MetHb 0.4 % (0.0-1.5); O2Hb 88.3 % (94.0-97.0); SITE, ABG Right Radial; VENT MODE, BG NC 3LPM
--- NOTE | 2017-05-30 19:30 | NUR ---
DIPLOMA PHARMACY TECHNICIAN INITIAL NOTE RECEIVED REPORT FROM EDGAR ELLIOTT. PT IN BED. A/A/O X2 WITH EPISODES OF CONFUSION. FAMILY AT BEDSIDE. PTS FAMILY WILL REMAIN AT BEDSIDE DUE TO PTS RESTLESS AND TRYING TO GET OUT OF BED. LUNG SOUNDS RHONCHI. ON BIPAP, BUT PATIENTS KEEPS TRYING TO REMOVE MASK. BOWEL SOUNDS PRESENT WITH A BM IN DIAPER.. INCONTINENT WITH DIAPER INTACT. EDEMA NOTED ON BLE AND BUE. IV PATENT AND INTACT. PT CLEANED AND REPOSITIONED FOR COMFORT. BED IN LOW LOCKED POSITION. CALL LIGHT WITHIN REACH. WILL CONTINUE TO MONITOR.
--- NOTE | 2017-05-30 20:20 | NUR ---
PT RECEIVED ON BIPAP AWAKE AND ALERT TOLERATING SETTINGS. BIPAP ALARMS SET AND AUDIBLE. WILL CONTINUE TO MONITOR. Addendum: 05/30/17 at 2023 by ZAIN NAVARRETE RT Amended: Links added.
[2017-05-31] VITALS (33 sets, daily range): BP systolic 100–145; BP diastolic 57–88
--- NOTE | 2017-05-31 | NUR ---
LACTATION CONSULTANT PT IN BED ON BIPAP. VERY RESTLESS. TRYING TO REMOVE BIPAP. PULLED OUT LEFT FOREARM IV, ATTEMPTING TO PULL OUT PICC LINE. PT RESTRAINED FOR SAFETY. WILL CONTINUE TO MONITOR.
[2017-05-31] MEDS: methylPREDNISolone SOD SUCC 40 MG/ML VIAL IV SCH ×4 (01:08→17:02)
[2017-05-31] MEDS: ALBUTEROL FS 2.5 MG/3 ML VIAL.NEB NEB SCH ×4 (01:23→20:09)
[2017-05-31] MEDS: IPRATROPIUM NEB FS 0.5 MG/2.5 ML AMPUL.NEB NEB SCH ×4 (01:24→20:09)
[2017-05-31 04:48] LABS: HEMATOCRIT 34 % (39-51); HEMOGLOBIN 10.1 g/dL (13.5-17.5); LYMPHOCYTES # (AUTO) 0.3 /CMM (0.8-4.8); LYMPHOCYTES % (AUTO) 2.9 % (20.0-44.0); MEAN CORPUSCULAR HEMOGLOBIN 23 PG (26.0-33.0); MEAN CORPUSCULAR HGB CONC 30 g/dl (31.0-36.0); MEAN CORPUSCULAR VOLUME 76 fL (80-96); MONOCYTES # (AUTO) 0.6 /CMM (0.1-1.30); MONOCYTES % (AUTO) 5.3 % (2.0-12.0); NEUTROPHILS # (AUTO) 10.2 /CMM (1.8-8.9); NEUTROPHILS % (AUTO) 91.8 % (43.0-81.0); PLATELET COUNT (AUTO) 232 /CMM (150-450); RED BLOOD CELL COUNT(AUTO) 4.44 MIL/uL (4.5-6.0); WHITE BLOOD COUNT (AUTO) 11.1 K/uL (4.3-11.0)
[2017-05-31 04:59] LABS: CALCIUM, SERUM 8.2 mg/dL (8.5-10.1); CARBON DIOXIDE 32 mmol/L (21-32); CHLORIDE 107 mmol/L (98-107); CREATININE 1.2 mg/dL (0.6-1.3); GLUCOSE 127 mg/dL (74-106); POTASSIUM 3.6 mmol/L (3.5-5.1); SODIUM SERUM 147 mmol/L (136-145); UREA NITROGEN, BLOOD 24 mg/dL (7-18)
[2017-05-31] MEDS ORDERED: FUROSEMIDE 40 MG/4 ML VIAL ONE (06:11)
[2017-05-31] MEDS: FUROSEMIDE 40 MG/4 ML VIAL IV SCH ×2 (06:12→10:42)
[2017-05-31] MEDS ORDERED: LEVOTHYROXINE SODIUM 88 MCG TABLET PO SCH (07:30)
[2017-05-31] MEDS ORDERED: FERROUS SULFATE (325 MG) 325 MG/TAB TABLET PO SCH (09:00)
[2017-05-31] MEDS: SENNOSIDES 8.6 MG TABLET PO SCH ×2 (09:00→16:47)
[2017-05-31] MEDS: SPIRONOLACTONE 25 MG TABLET PO SCH (09:01)
[2017-05-31] MEDS: PHENYTOIN EXTENDED RELEASE 100 MG CAPSULE PO SCH ×3 (09:01→16:39)
[2017-05-31] MEDS: AMIODARONE HCL 200 MG TABLET PO SCH ×2 (09:01→16:39)
[2017-05-31] MEDS: SERTRALINE HCL 50 MG TABLET PO SCH (09:01)
[2017-05-31] MEDS: CLOPIDOGREL BISULFATE 75 MG TABLET PO SCH (09:01)
[2017-05-31] MEDS: TAMSULOSIN 0.4 MG CAP.SR.24H PO SCH (09:01)
[2017-05-31] MEDS: DIVALPROEX SODIUM 250 MG TABLET.DR PO SCH ×2 (09:01→16:39)
[2017-05-31] MEDS: ASPIRIN EC 81 MG TABLET.DR PO SCH (09:01)
[2017-05-31] MEDS: FAMOTIDINE/PF INJ 20 MG/2 ML VIAL IV SCH ×2 (09:02→21:23)
[2017-05-31] MEDS: POTASSIUM CHLORIDE 20 MEQ TAB.PRT.SR PO SCH ×3 (09:02→10:42)
[2017-05-31] MEDS: Z GUARD REMEDY 2 OZ OINT TP SCH ×2 (09:03→21:24)
[2017-05-31] MEDS: HYDROGEL DRESSING 90 GM TUBE TP SCH (09:03)
--- NOTE | 2017-05-31 09:08 | NUR ---
DR. DREW ON THE UNIT, HE ASKS THE FAMILY AT BEDSIDE (MARGARITA THE SON AND 2 OTHERS) ABOUT CODE STATUS, THEY STILL WANT FULL CODE, DR. DREW AND I CONFIRM AND IT IS UNCLEAR HOW HE WAS DNR/DNI FROM YESTERDAY. HOWEVER WE CONFIRM THE FAMILY WANTS FULL CODE. WILL INPUT ORDER.
[2017-05-31] MEDS: POTASSIUM CHLORIDE 10 MEQ TABLET.SA PO SCH (09:11)
[2017-05-31] MEDS: HEPARIN SODIUM, PORCINE 5000 UNITS/1 ML VIAL SQ SCH ×2 (09:13→21:26)
[2017-05-31 09:24] LABS: ABG BASE EXCESS 8.6 mmol/L; ABG OXYGEN SATURATION 91.2 % (92.0-98.5); ABG PCO2 69.2 mmHg (35.0-45.0); ABG PO2 68.7 mmHg (75.0-100.0); AaDO2 63.9 mmHg; MetHb 0.4 % (0.0-1.5); O2Hb 89.9 % (94.0-97.0); SITE, ABG Right Radial; VENT MODE, BG NC 3 L
--- NOTE | 2017-05-31 09:44 | NUR ---
CODE STATUS CHANGED TO FULL CODE DISCUSSED THOROUGHLY WITH THE FAMILY ABOUT IF THE PT DOESNT BREATHE WELL TODAY, WE WILL PLACE HIM ON BIPAP. IF THE BIPAP DOES NOT WORK I ASKED IF THEY WANT US TO PLACE A TUBE INTO HIS THROAT AND BACK ONTO THE MECAHNICAL VENTILATOR. THE FAMILY WAS CLEAR THAT THEY DO WANT THIS. THEY EXPLAINED TO ME HYPOTHEICALLY THAT WHILE HE IS INTUBATED THEY WILL HAVE A TIME TO SEE IF HE CAN BE WEANED OFF AND IF NOT THEY WILL DECIDE TO TERMINALLY EXTUBATE. I CONFIRMED THIS ALONG WITH CPR. DR. DREW AT BEDSIDE ALSO PRESENT AND INVOLVED IN THIS CONVERSATION. HE ORDERS TO PLACE THE PT BACK TO FULL CODE STATUS.
[2017-05-31] MEDS: LEVOFLOXACIN 750 MG /D5W 150ML 150 ML IV SCH (10:42)
[2017-05-31] MEDS: LEVOTHYROXINE SODIUM 88 MCG TABLET PO SCH (10:42)
--- NOTE | 2017-05-31 11:33 | NUR ---
PT C/O OF RESPIRATORY DISTRESS SATURATION DROPPED TO 76%, I SAT THE HOB ALL THE WAY UP AND RAISED UP HIS ARMS AND TRIED TO GET HIM TO BREATHE DEEPLY, BUT THE SAT KEPT DROPPING. ORDERS RECVD TO PLACE BACK ON BIPAP.
--- NOTE | 2017-05-31 12:48 | NUR ---
RT GAVE BREATHING TX AND NOW BACK ON 3 LITERS NC TOLERATING WELL.
[2017-05-31] MEDS: SOD FERRIC GLUC 125 MG in IV NS 0.9% 100 ML IV SCH (14:33)
--- NOTE | 2017-05-31 19:30 | NUR ---
FIELD PROJECT MANAGER INITIAL NOTE RECEIVED REPORT FROM GAGE RN . PT IN BED ASLEEP BUT AROUSABLE. FAMILY AT BEDSIDE. PT ON BIPAP, TOLERATING WELL. LUNG SOUNDS WHEEZING. BOWEL SOUNDS PRESENT. BEARDEN INTACT, WITH SOME LEAKAGE; 6FR. PULSES PRESENT. BLE EDEMA AND BUE EDEMA NOTED. IV PATENT AND INTACT. REPOSITIONED FOR COMFORT. BED IN LOW LOCKED POSITION. CALL LIGHT WITHIN REACH. WILL CONTINUE TO MONITOR. CODE STATUS FULL CODE.
--- NOTE | 2017-05-31 20:15 | NUR ---
SALES FORCE ADMINISTRATOR RT ASKING FOR BIPAP SETTING CLARIFICATIONS. PT CURRENTLY COMFORTABLE ON BIPAP. CURRENT SETTING ARE 18/5 RATE 14 FIO2 35%. ORDER BY DR DREW AT 10AM INDICATE SETTINGS SHOULD BE 20/10 RATE 14. WILL CALL PULMONARY FOR CLARIFICATION. DR WEBER CALLED. INFORMED HIM ABOUT PT, PROVIDED MOST RECENT ABG RESULTS. NEW ORDER FOR BIPAP IS 18/8 RATE 16 FIO2 35%. WILL ENDORSE TO RT. WILL CONTINUE TO MONITOR.
--- NOTE | 2017-05-31 20:41 | NUR ---
RT BIPAP CHANGES APPLIED PER MD ORDERS. PT TOLERATING BIPAP SETTING WELL. NO SOB OR DISTRESS NOTED. LEXI LINDSAY MADE AWARE. WILL CONTINUE TO MONITOR. Addendum: 05/31/17 at 204 by RYDER SMYTH RT Amended: Links added.
--- NOTE | 2017-05-31 23:45 | NUR ---
SECURITY CONTROL ROOM OFFICER PT IN BED ON BIPAP. PT CLEANED AND REPOSITIONED FOR COMFORT. NO DISTRESS. SON AT BEDSIDE. WILL CONTINUE TO MONITOR.
[2017-06-01] VITALS (34 sets, daily range): BP systolic 107–158; BP diastolic 58–114
[2017-06-01] MEDS: methylPREDNISolone SOD SUCC 40 MG/ML VIAL IV SCH ×4 (00:17→17:35)
[2017-06-01] MEDS: IPRATROPIUM NEB FS 0.5 MG/2.5 ML AMPUL.NEB NEB SCH ×4 (01:56→19:14)
[2017-06-01] MEDS: ALBUTEROL FS 2.5 MG/3 ML VIAL.NEB NEB SCH ×4 (01:56→19:14)
--- NOTE | 2017-06-01 07:30 | NUR ---
ICU/RN: Pt received in bed, A&Ox2-3. Denies pain and discomfort. Tolerating current BiPAP settings. HUGH PICC patent and intact. FC draining to gravity. Hemodynamically stable. Will cont to monitor pt.
[2017-06-01 08:26] LABS: ABG BASE EXCESS 8.9 mmol/L; ABG OXYGEN SATURATION 93.5 % (92.0-98.5); ABG PCO2 53.6 mmHg (35.0-45.0); ABG PH 7.429 (7.350-7.450); ABG PO2 72.4 mmHg (75.0-100.0); AaDO2 78.5 mmHg; COHb 1.1 % (0.5-1.5); MetHb 0.2 % (0.0-1.5); O2Hb 92.3 % (94.0-97.0); SITE, ABG Right Radial; VENT MODE, BG ST 15/5 30%
[2017-06-01] MEDS: SERTRALINE HCL 50 MG TABLET PO SCH (08:26)
[2017-06-01] MEDS: TAMSULOSIN 0.4 MG CAP.SR.24H PO SCH (08:26)
[2017-06-01] MEDS: SPIRONOLACTONE 25 MG TABLET PO SCH (08:26)
[2017-06-01] MEDS: DIVALPROEX SODIUM 250 MG TABLET.DR PO SCH ×2 (08:26→16:20)
[2017-06-01] MEDS: POTASSIUM CHLORIDE 10 MEQ TABLET.SA PO SCH (08:26)
[2017-06-01] MEDS: FAMOTIDINE/PF INJ 20 MG/2 ML VIAL IV SCH ×2 (08:27→21:20)
[2017-06-01] MEDS: ASPIRIN EC 81 MG TABLET.DR PO SCH (08:27)
[2017-06-01] MEDS: LEVOTHYROXINE SODIUM 88 MCG TABLET PO SCH (08:27)
[2017-06-01] MEDS: Z GUARD REMEDY 2 OZ OINT TP SCH ×2 (08:27→21:24)
[2017-06-01] MEDS: CLOPIDOGREL BISULFATE 75 MG TABLET PO SCH (08:27)
[2017-06-01] MEDS: HYDROGEL DRESSING 90 GM TUBE TP SCH (08:27)
[2017-06-01] MEDS: PHENYTOIN EXTENDED RELEASE 100 MG CAPSULE PO SCH ×3 (08:27→16:20)
[2017-06-01] MEDS: HEPARIN SODIUM, PORCINE 5000 UNITS/1 ML VIAL SQ SCH ×2 (08:28→21:23)
[2017-06-01] MEDS: AMIODARONE HCL 200 MG TABLET PO SCH ×2 (08:30→16:20)
[2017-06-01] MEDS: SENNOSIDES 8.6 MG TABLET PO SCH ×2 (08:30→16:18)
--- NOTE | 2017-06-01 08:30 | NUR ---
RT NOTE PT REMOVED FROM BIPAP AND PLACED ON NC AT 2L WHILE HE EATS. RN NOTIFIED. FAMILY AT BED SIDE. PT AWAKE AND ALERT. NO DISTRESS NOTED. WILL CONTINUE TO MONITOR. Addendum: 06/01/17 at 0831 by VIV LUI RT Amended: Links added.
[2017-06-01 08:51] LABS: HEMATOCRIT 37 % (39-51); HEMOGLOBIN 11.1 g/dL (13.5-17.5); LYMPHOCYTES # (AUTO) 0.3 /CMM (0.8-4.8); LYMPHOCYTES % (AUTO) 3.3 % (20.0-44.0); MEAN CORPUSCULAR HEMOGLOBIN 23 PG (26.0-33.0); MEAN CORPUSCULAR HGB CONC 30 g/dl (31.0-36.0); MEAN CORPUSCULAR VOLUME 75 fL (80-96); MONOCYTES # (AUTO) 0.5 /CMM (0.1-1.30); MONOCYTES % (AUTO) 5.8 % (2.0-12.0); NEUTROPHILS # (AUTO) 8.5 /CMM (1.8-8.9); NEUTROPHILS % (AUTO) 90.9 % (43.0-81.0); PLATELET COUNT (AUTO) 246 /CMM (150-450); RDW COEFFICIENT OF VARIATION 18.7 (11.5-15.0); RED BLOOD CELL COUNT(AUTO) 4.85 MIL/uL (4.5-6.0); WHITE BLOOD COUNT (AUTO) 9.4 K/uL (4.3-11.0)
--- NOTE | 2017-06-01 09:00 | NUR ---
ICU/RN: PT unable to tolerate being off BIPAP during breakfast and am care. Pt is tachypneic, anxious and diaphoretic. Dr Langford at bedside speaking with family. Pt placed back on BiPAP.
[2017-06-01 09:06] LABS: CARBON DIOXIDE 33 mmol/L (21-32); CHLORIDE 105 mmol/L (98-107); CREATININE 1.1 mg/dL (0.6-1.3); GLUCOSE 133 mg/dL (74-106); POTASSIUM 3.8 mmol/L (3.5-5.1); SODIUM SERUM 144 mmol/L (136-145); UREA NITROGEN, BLOOD 27 mg/dL (7-18)
[2017-06-01] MEDS: LEVOFLOXACIN 750 MG /D5W 150ML 150 ML IV SCH (11:34)
--- NOTE | 2017-06-01 15:00 | NUR ---
ICU/RN: Bed bath, wound care rendered. Turned and repositioned for comfort. Pt tolerated well. Will cont to monitor pt
[2017-06-01] MEDS: SOD FERRIC GLUC 125 MG in IV NS 0.9% 100 ML IV SCH (16:04)
--- NOTE | 2017-06-01 18:00 | NUR ---
ICU/RN: Pt had dinner sitting at edge of bed, tolerated well on NC. Placed back on BiPAP.
--- NOTE | 2017-06-01 19:15 | NUR ---
ICU/RN: Dr Martin at bedside; updated on pt status.
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
[2017-06-01] MEDS ORDERED: OLANZAPINE 10 MG VIAL IM ONE ×4 (21:12→22:49)
[2017-06-01] MEDS ORDERED: OLANZAPINE 10 MG VIAL IM PRN (21:30)
--- NOTE | 2017-06-01 21:45 | NUR ---
ICU/DESIGN EDITOR PT APPEARED AGITATED HITTING STAFF AND FAMILY MEMBERS, CALLED MD WAS GIVEN ORDER FOR ZYPREXA 2.5 IM TIMES ONE BUT MAY REPEAT TIMES ONE IF NEEDED. MEDICATION WAS GIVEN IM. DAUGHTER AT BEDSIDE WILL MONITOR THIS PT.
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
[2017-06-02] VITALS (36 sets, daily range): BP systolic 1–163; BP diastolic 54–85
[2017-06-02] MEDS: methylPREDNISolone SOD SUCC 40 MG/ML VIAL IV SCH ×4 (00:33→17:53)
[2017-06-02] MEDS: IPRATROPIUM NEB FS 0.5 MG/2.5 ML AMPUL.NEB NEB SCH ×4 (01:45→19:55)
[2017-06-02] MEDS: ALBUTEROL FS 2.5 MG/3 ML VIAL.NEB NEB SCH ×4 (01:46→19:55)
[2017-06-02 04:46] LABS: HEMATOCRIT 36 % (39-51); HEMOGLOBIN 10.8 g/dL (13.5-17.5); LYMPHOCYTES # (AUTO) 0.7 /CMM (0.8-4.8); LYMPHOCYTES % (AUTO) 7.8 % (20.0-44.0); MEAN CORPUSCULAR HEMOGLOBIN 22 PG (26.0-33.0); MEAN CORPUSCULAR HGB CONC 30 g/dl (31.0-36.0); MEAN CORPUSCULAR VOLUME 75 fL (80-96); MONOCYTES # (AUTO) 0.9 /CMM (0.1-1.30); NEUTROPHILS # (AUTO) 6.8 /CMM (1.8-8.9); NEUTROPHILS % (AUTO) 81.2 % (43.0-81.0); PLATELET COUNT (AUTO) 227 /CMM (150-450); RDW COEFFICIENT OF VARIATION 18.4 (11.5-15.0); RED BLOOD CELL COUNT(AUTO) 4.83 MIL/uL (4.5-6.0); WHITE BLOOD COUNT (AUTO) 8.4 K/uL (4.3-11.0)
[2017-06-02 05:02] LABS: CARBON DIOXIDE 32 mmol/L (21-32); CHLORIDE 105 mmol/L (98-107); GLUCOSE 101 mg/dL (74-106); POTASSIUM 3.6 mmol/L (3.5-5.1); SODIUM SERUM 143 mmol/L (136-145); UREA NITROGEN, BLOOD 27 mg/dL (7-18)
--- NOTE | 2017-06-02 07:38 | NUR ---
INITIAL COMMUNITY SERVICES OFFICER NOTE RCVD PT AWAKE AND ALERT TO SELF, CALM, ABLE TO FOLLOW COMMANDS. TOLERATING BIPAP SETTINGS. BILATERAL SOFT WRIST RESTRAINTS IN PLACE. CIRCULATION CHECKS PERFORMED. PULSES PRESENT BILATERALLY, SKIN WARM TO TOUCH. SR WITH OCCASIONAL PVCs ON TELE. BEARDEN IN PLACE DRAINING YELLOW URINE. HUGH PICC C/D/I/PATENT. NO S/O INFILTRATION/PHLEBITIS OBSERVED UPON FLUSHING. WILL CONTINUE TO MONITOR PT FOR SAFETY AND COMFORT. CALL LIGHT WITHIN REACH. BED IN LOW AND LOCKED POSITION.
--- NOTE | 2017-06-02 08:10 | NUR ---
BUSINESS ANALYTICS DIRECTOR NOTE PT ON NC TOLERATING WELL, PT'S DAUGHTER AT BEDSIDE. PT REMAINS CALM AND FOLLOWING DIRECTIONS. WILL CONTINUE TO MONITOR.
[2017-06-02] MEDS: LEVOTHYROXINE SODIUM 88 MCG TABLET PO SCH (08:37)
[2017-06-02] MEDS: FAMOTIDINE/PF INJ 20 MG/2 ML VIAL IV SCH ×2 (08:37→21:19)
[2017-06-02] MEDS: SERTRALINE HCL 50 MG TABLET PO SCH (08:38)
[2017-06-02] MEDS: DIVALPROEX SODIUM 250 MG TABLET.DR PO SCH ×2 (08:38→17:00)
[2017-06-02] MEDS: PHENYTOIN EXTENDED RELEASE 100 MG CAPSULE PO SCH ×4 (08:38→17:00)
[2017-06-02] MEDS: CLOPIDOGREL BISULFATE 75 MG TABLET PO SCH (08:39)
[2017-06-02] MEDS: SENNOSIDES 8.6 MG TABLET PO SCH ×2 (08:39→17:00)
[2017-06-02] MEDS: POTASSIUM CHLORIDE 10 MEQ TABLET.SA PO SCH (08:39)
[2017-06-02] MEDS: SPIRONOLACTONE 25 MG TABLET PO SCH (08:39)
[2017-06-02] MEDS: TAMSULOSIN 0.4 MG CAP.SR.24H PO SCH (08:39)
[2017-06-02] MEDS: LEVOFLOXACIN (750 MG) 750 MG TABLET PO SCH (08:39)
[2017-06-02] MEDS: AMIODARONE HCL 200 MG TABLET PO SCH ×2 (08:39→17:00)
[2017-06-02] MEDS: ASPIRIN EC 81 MG TABLET.DR PO SCH (08:39)
[2017-06-02] MEDS: HYDROGEL DRESSING 90 GM TUBE TP SCH (08:40)
[2017-06-02] MEDS: Z GUARD REMEDY 2 OZ OINT TP SCH ×2 (08:40→21:19)
[2017-06-02] MEDS: HEPARIN SODIUM, PORCINE 5000 UNITS/1 ML VIAL SQ SCH ×2 (09:02→21:23)
[2017-06-02 10:23] LABS: ABG BASE EXCESS 4.6 mmol/L; ABG PCO2 76.3 mmHg (35.0-45.0); ABG PH 7.263 (7.350-7.450); ABG PO2 67.4 mmHg (75.0-100.0); AaDO2 56.9 mmHg; MetHb 0.4 % (0.0-1.5); O2Hb 88.7 % (94.0-97.0); SITE, ABG Right Radial; VENT MODE, BG NASAL CANNULA
--- NOTE | 2017-06-02 10:30 | NUR ---
MECHANIC INSULATOR NOTE PT PLACED BACK ON BIPAP BY RT AFTER ABG PERFORMED. CO2 TRENDING UP, PH TRENDING DOWN. WILL CONTINUE TO MONITOR. PT'S AT BEDSIDE.
--- NOTE | 2017-06-02 10:30 | NUR ---
RT PT PLACED BACK ON BIPAP WITH NOTED SETTINGS DUE TO INCREASED WOB. PT WILL REMAIN ON BIPAP FOR THE REST OF THE DAY PER DR. CARDOZO REQUEST. Addendum: 06/02/17 at 1115 by ALMA FELIZ RT Amended: Links added.
--- NOTE | 2017-06-02 12:36 | NUR ---
ICU MEDICATION NOTE PT ON BIPAP, APPEARS VERY DROWSY UPON WAKING UP. WILL CONTINUE TO MONITOR. DILANTIN NOT GIVEN.
[2017-06-02] MEDS: SOD FERRIC GLUC 125 MG in IV NS 0.9% 100 ML IV SCH (15:10)
--- NOTE | 2017-06-02 17:33 | NUR ---
ICU MEDICATION NOTE PT REMAINS ON BIPAP, DESATURATING UPON MASK REMOVAL. PO MEDICATIONS HELD. WILL CONTINUE TO MONITOR.
--- NOTE | 2017-06-02 18:45 | NUR ---
GRAPPLE SKIDDER OPERATOR NOTE PT REMAINS STABLE, ON BIPAP TOLERATING WELL. BILATERAL WRIST RESTRAINTS IN PLACE. CIRCULATORY CHECKS DONE. VITAL SIGNS STABLE. PT'S AT BEDSIDE. SR ON TELE. BEARDEN DRAINING CLOUDY, EDGARD COLORED URINE.. HUGH PICC C/D/I/PATENT. NO S/O INFILTRATION/PHLEBITIS OBSERVED UPON FLUSHING. PT'S CARE WILL BE ENDORSED TO FIRE MANAGEMENT TECHNICIAN RN FOR CONTINUITY OF CARE.
--- NOTE | 2017-06-02 19:30 | NUR ---
COMPUTER FORENSICS TECHNICIAN INITIAL NOTE RECEIVED REPORT FROM ALVARO ELLIOTT. PT IN BED. SLEEPING BUT EASILY AROUSABLE. FAMILY AT BEDSIDE .ON BIPAP AND TOLERATING WELL. LUNG SOUNDS WHEEZES. BOWEL SOUNDS PRESENT. INCONTINENT TO URINE AND STOOL. DIAPER INTACT. BEARDEN INTACT AND DRAINING URINE WITH LEAKAGE AROUND THE SITE. PULSES PRESENT. IV PATENT AND INTACT. REMOVED RESTRAINTS AT THIS TIME, PT IS COOPERATIVE. BED IN LOW LOCKED POSITION. WILL CONTINUE TO MONITOR.
--- NOTE | 2017-06-02 22:00 | NUR ---
MANAGER CONTENTCOAT CUTTER IS LEAVING [facility]. INSTRUCTED ME TO CALL THEM WITH ANY CHANGES AND THEY WILL RETURN. WILL CONTINUE TO MONITOR.
[2017-06-03] VITALS (37 sets, daily range): BP systolic 91–152; BP diastolic 23–100
[2017-06-03] MEDS: methylPREDNISolone SOD SUCC 40 MG/ML VIAL IV SCH ×5 (00:13→23:46)
--- NOTE | 2017-06-03 01:00 | NUR ---
SUPERVISOR DRYING AND SOFTENING PT BEARDEN IS OUT, REATTEMPTED TO RE INSERT BEARDEN WITHOUT SUCCESS. ED RN ASSISTED WITH A PEDIATRIC SIZE 6 FR, NO SUCCESS. DIAPER APPLIED. WILL CONTINUE TO MONITOR.
[2017-06-03] MEDS: ALBUTEROL FS 2.5 MG/3 ML VIAL.NEB NEB SCH ×4 (01:25→19:43)
[2017-06-03] MEDS: IPRATROPIUM NEB FS 0.5 MG/2.5 ML AMPUL.NEB NEB SCH ×4 (01:25→19:43)
--- NOTE | 2017-06-03 07:28 | NUR ---
INITIAL TAILER OUT NOTE RCVD PT AWAKE AND ALERT SHOWING NO S/O DISTRESS OR PAIN. ON BIPAP TOLERATING WELL. PT OFF RESTRAINTS CALM AND COOPERATIVE. SR ON TELE. PT REQUESTS TO BE TAKEN OFF BIPAP FOR BREAKFAST. HUGH PICC C/D/I/PATENT. NO S/O INFILTRATION/PHLEBITIS OBSERVED UPON FLUSHING. WILL CONTINUE TO MONITOR PT FOR SAFETY AND COMFORT. CALL LIGHT WITHIN REACH. BED IN LOW AND LOCKED POSITION.
--- NOTE | 2017-06-03 08:10 | NUR ---
MILLINERY BLOCKER NOTE PT TAKEN OFF BIPAP TOLERATING O2 VIA NC AT THIS TIME. EXHIBITING NO S/O DISTRESS. GOOD PO INTAKE AND COACHING TO BREATH IN BETWEEN BITES. WILL CONTINUE TO MONITOR.
[2017-06-03] MEDS: LEVOFLOXACIN (750 MG) 750 MG TABLET PO SCH (08:27)
[2017-06-03] MEDS: TAMSULOSIN 0.4 MG CAP.SR.24H PO SCH (08:27)
[2017-06-03] MEDS: CLOPIDOGREL BISULFATE 75 MG TABLET PO SCH (08:27)
[2017-06-03] MEDS: MULTIVITAMINS,THERAGRAN 1 UDTAB TABLET PO SCH (08:27)
[2017-06-03] MEDS: AMIODARONE HCL 200 MG TABLET PO SCH ×2 (08:27→17:07)
[2017-06-03] MEDS: ASPIRIN EC 81 MG TABLET.DR PO SCH (08:27)
[2017-06-03] MEDS: SERTRALINE HCL 50 MG TABLET PO SCH (08:27)
[2017-06-03] MEDS: LEVOTHYROXINE SODIUM 88 MCG TABLET PO SCH (08:27)
[2017-06-03] MEDS: FAMOTIDINE/PF INJ 20 MG/2 ML VIAL IV SCH ×2 (08:27→21:43)
[2017-06-03] MEDS: POTASSIUM CHLORIDE 10 MEQ TABLET.SA PO SCH (08:27)
[2017-06-03] MEDS: SENNOSIDES 8.6 MG TABLET PO SCH ×2 (08:27→17:07)
[2017-06-03] MEDS: PHENYTOIN EXTENDED RELEASE 100 MG CAPSULE PO SCH ×3 (08:27→17:07)
[2017-06-03] MEDS: DIVALPROEX SODIUM 250 MG TABLET.DR PO SCH ×2 (08:27→17:07)
[2017-06-03] MEDS: SPIRONOLACTONE 25 MG TABLET PO SCH (08:27)
[2017-06-03] MEDS: ASCORBIC ACID 500 MG TABLET PO SCH (08:27)
[2017-06-03] MEDS: PROSOURCE / PROSTAT (PYXIS) 30 ML UDC GT SCH (08:28)
[2017-06-03] MEDS: Z GUARD REMEDY 2 OZ OINT TP SCH ×2 (08:28→21:44)
[2017-06-03] MEDS: HYDROGEL DRESSING 90 GM TUBE TP SCH (08:28)
[2017-06-03] MEDS: HEPARIN SODIUM, PORCINE 5000 UNITS/1 ML VIAL SQ SCH ×2 (08:42→21:51)
--- NOTE | 2017-06-03 10:16 | NUR ---
COMMANDING OFFICER GARAGE NOTE PT PLACED BACK ON BIPAP DESATURATED UPON REPOSITIONING IN BED. RT AT BEDSIDE WILL CONTINUE TO MONITOR.
--- NOTE | 2017-06-03 13:07 | NUR ---
BUILDING CONSULTANT NOTE PT SLEEPING REMAINS ON BIPAP TOLERATING WELL. PT'S AT BEDSIDE. WILL CONTINUE TO MONITOR. Addendum: 06/03/17 at 1309 by STEVEN HOLMAN RN DR CARDOZO AND DR. LINDO INFORMED OF PT'S ABG RESULTS THIS AM. NO NEW ORDERS RCVD.
[2017-06-03] MEDS: SOD FERRIC GLUC 125 MG in IV NS 0.9% 100 ML IV SCH (13:20)
--- NOTE | 2017-06-03 15:35 | NUR ---
PEST LOCATOR NOTE PT OFF BIPAP TOLERATING O2 VIA NC. HAVING LATE LUNCH. TOLERATING WELL. PT'S AT BEDSIDE.
--- NOTE | 2017-06-03 16:06 | NUR ---
CLOTH PIECER NOTE PT DESATURATING BIPAP PLACED BACK ON. WILL CONTINUE TO MONITOR.
--- NOTE | 2017-06-03 17:16 | NUR ---
DAYCARE MANAGER NOTE PT OFF BIPAP TOLERATING O2 VIA NC. PT'S FAMILY AT BEDSIDE.
--- NOTE | 2017-06-03 18:04 | NUR ---
TELEGRAPHIC INSTRUMENT SUPERVISOR NOTE PT BACK ON BIPAP DESATURATING. WILL CONTINUE TO MONITOR.
--- NOTE | 2017-06-03 19:15 | NUR ---
AUTOMOBILE BRAKE BONDER NOTE PT CONTINUES ON BIPAP, VITAL SIGNS STABLE, NO S/O DISTRESS OBSERVED. NO C/O PAIN REPORTED. SR ON TELE. HUGH PICC C/D/I/PATENT. NO S/O INFILTRATION/PHLEBITIS OBSERVED. IVF INFUSING TKO. PT'S CARE ENDORSED TO COOK FISH EGGS RN FOR CONTINUITY OF CARE. BED IN LOW AND LOCKED POSITION.
--- NOTE | 2017-06-03 20:00 | NUR ---
SUPERVISOR DELIVERY DEPARTMENT NOTES RECEIVED PT IN BED. AWAKE, A/OX 2-3. INTERACTING WITH FAMILY AT BEDSIDE. TELE READS SR AT 71 BPM. ON BIPAP AT ORDERED SETTINGS, GRANT WELL. PT IN DIAPER. HUGH PICC, SALINE LOCKED. CALL LIGHT WITHIN REACH, TURNED AND REPOSITIONED, ALL NEEDS MET. PT DENIES PAIN AT THIS TIME.
[2017-06-04] VITALS (37 sets, daily range): BP systolic 109–166; BP diastolic 45–89
--- NOTE | 2017-06-04 | NUR ---
RETAIL PHARMACIST NOTES PT IS ASLEEP, NO S/S OF PAIN OR DISCOMFORT. TURNED AND REPOSITIONED. PT'S SON AT BEDSIDE.
[2017-06-04] MEDS: IPRATROPIUM NEB FS 0.5 MG/2.5 ML AMPUL.NEB NEB SCH ×4 (01:03→19:28)
[2017-06-04] MEDS: ALBUTEROL FS 2.5 MG/3 ML VIAL.NEB NEB SCH ×4 (01:03→19:28)
--- NOTE | 2017-06-04 03:00 | NUR ---
DRY CLEANING ATTENDANT NOTES PT APPEARS TO BE CONFUSED AND HAS BEEN ATTEMPTING TO GET OUT OF BED AND REMOVE BIPAP THROUGHOUT NIGHT. PT'S SON STATES THAT THIS IS NORMAL NIGHT TIME BEHAVIOR. BED ALARM SET, SIDE RAILS X4 FOR PT SAFETY, CALL LIGHT WITHIN REACH.
--- NOTE | 2017-06-04 05:00 | NUR ---
COARSE WIRE DRAWER NOTES PT ATTEMPTED TO GET OUT OF BED. MULTIPLE RNs RUSHED TO BEDSIDE BED ALARM SOUNDED. PT WAS FOUND WITH BOTH FEET HANGING OVER SIDE RAIL AND BIPAP MASK REMOVED. SON WAS ASLEEP AT BEDSIDE AND AWOKE TO THE BED ALARM GOING OFF. PT ACQUIRED A SKIN TEAR AT RIGHT FOREARM AND A LOCATION WITH EXISTING BRUISES AND POOR SKIN INTEGRITY. WOUND WAS CLEANSED WITH NS AND PAT DRY. PHOTO TAKEN AND CHARTED. COVERED WITH MEPILEX.
[2017-06-04 05:04] LABS: HEMATOCRIT 36 % (39-51); LYMPHOCYTES # (AUTO) 0.4 /CMM (0.8-4.8); LYMPHOCYTES % (AUTO) 4.6 % (20.0-44.0); MEAN CORPUSCULAR HEMOGLOBIN 23 PG (26.0-33.0); MEAN CORPUSCULAR HGB CONC 31 g/dl (31.0-36.0); MEAN CORPUSCULAR VOLUME 76 fL (80-96); MONOCYTES # (AUTO) 0.5 /CMM (0.1-1.30); NEUTROPHILS # (AUTO) 7.6 /CMM (1.8-8.9); NEUTROPHILS % (AUTO) 89.4 % (43.0-81.0); PLATELET COUNT (AUTO) 214 /CMM (150-450); RDW COEFFICIENT OF VARIATION 18.1 (11.5-15.0); RED BLOOD CELL COUNT(AUTO) 4.73 MIL/uL (4.5-6.0); WHITE BLOOD COUNT (AUTO) 8.4 K/uL (4.3-11.0)
[2017-06-04 05:11] LABS: CALCIUM, SERUM 7.8 mg/dL (8.5-10.1); CARBON DIOXIDE 32 mmol/L (21-32); CHLORIDE 106 mmol/L (98-107); GLUCOSE 145 mg/dL (74-106); POTASSIUM 4.1 mmol/L (3.5-5.1); SODIUM SERUM 142 mmol/L (136-145); UREA NITROGEN, BLOOD 31 mg/dL (7-18)
[2017-06-04] MEDS: methylPREDNISolone SOD SUCC 40 MG/ML VIAL IV SCH ×3 (06:32→21:17)
[2017-06-04] MEDS: TAMSULOSIN 0.4 MG CAP.SR.24H PO SCH (08:30)
[2017-06-04] MEDS: CLOPIDOGREL BISULFATE 75 MG TABLET PO SCH (08:30)
[2017-06-04] MEDS: LEVOFLOXACIN (750 MG) 750 MG TABLET PO SCH (08:30)
[2017-06-04] MEDS: PHENYTOIN EXTENDED RELEASE 100 MG CAPSULE PO SCH ×3 (08:31→16:51)
[2017-06-04] MEDS: Z GUARD REMEDY 2 OZ OINT TP SCH ×2 (08:31→21:20)
[2017-06-04] MEDS: ASPIRIN EC 81 MG TABLET.DR PO SCH (08:31)
[2017-06-04] MEDS: SERTRALINE HCL 50 MG TABLET PO SCH (08:31)
[2017-06-04] MEDS: SPIRONOLACTONE 25 MG TABLET PO SCH (08:31)
[2017-06-04] MEDS: DIVALPROEX SODIUM 250 MG TABLET.DR PO SCH ×2 (08:31→16:51)
[2017-06-04] MEDS: LEVOTHYROXINE SODIUM 88 MCG TABLET PO SCH (08:31)
[2017-06-04] MEDS: AMIODARONE HCL 200 MG TABLET PO SCH ×2 (08:31→16:51)
[2017-06-04] MEDS: POTASSIUM CHLORIDE 10 MEQ TABLET.SA PO SCH (08:31)
[2017-06-04] MEDS: SENNOSIDES 8.6 MG TABLET PO SCH ×2 (08:31→16:51)
[2017-06-04] MEDS: FAMOTIDINE/PF INJ 20 MG/2 ML VIAL IV SCH ×2 (08:31→21:17)
[2017-06-04] MEDS: MULTIVITAMINS,THERAGRAN 1 UDTAB TABLET PO SCH (08:31)
[2017-06-04] MEDS: ASCORBIC ACID 500 MG TABLET PO SCH (08:31)
[2017-06-04] MEDS: PROSOURCE / PROSTAT (PYXIS) 30 ML UDC GT SCH (08:32)
[2017-06-04] MEDS: HYDROGEL DRESSING 90 GM TUBE TP SCH (08:32)
[2017-06-04] MEDS: HEPARIN SODIUM, PORCINE 5000 UNITS/1 ML VIAL SQ SCH (08:33)
[2017-06-04] MEDS ORDERED: ERGOCALCIFEROL (VITAMIN D 2) 50,000 UNIT CAPSULE PO SCH (09:00)
[2017-06-04 09:51] LABS: ABG BASE EXCESS 3.6 mmol/L; ABG OXYGEN SATURATION 90.9 % (92.0-98.5); ABG PCO2 69.4 mmHg (35.0-45.0); ABG PH 7.282 (7.350-7.450); ABG PO2 67.3 mmHg (75.0-100.0); COHb 1.1 % (0.5-1.5); MetHb 0.2 % (0.0-1.5); O2Hb 89.7 % (94.0-97.0); VENT MODE, BG N/C
--- NOTE | 2017-06-04 10:49 | NUR ---
AUTO SEAT COVER INSTALLER NOTE 0720: Received patient awake, confused, with episode of trying to get out of bed. Son at bedside. On Bipap, tolerated settings at this time. Repositioned for comfort. HUGH PICC intact. SR 70's on the monitor. Patient is incontinent, on diapers, encouraged to use urinals. 0800: Tried placing patien toff Bipap, placed on 4LPM of O2 via NC, but patient became more confused and increased WOB. Sat 85%, placed back on Bipap. Son at bedside, aware for patient's condition. 0845: Removed Bipap, patient more calm. placed on 4LPM of O2 via NC, meds given. Daughter and at bedside helping on feeding breakfast. Sat 93%. Will keep off Bipap for now. 0945: Dr. Martin at bedside, S/E patient, aware for the ABG, Still 93% on 4LPM of O2 via NC. Per MD, keep off Bipap if able. 1000: Noted patient desat, 77-81%. Placed patient on Bipap again. Will continue to monitor. 1045: Remained on Bipap, patient is calm, resting well at this time. at bedside, bed alarm on.
--- NOTE | 2017-06-04 16:07 | NUR ---
CARTON MAKING MACHINE OPERATOR NOTE Dr. Martin wants to meet with son at bedside tomorrow at 0900. Tried calling Priya's number x3 but no answer and voicemail is full. I was able to talk to Stephanie and told her MD wants to talk with son and she said she will inform Priya.
--- NOTE | 2017-06-04 18:46 | NUR ---
IT SECURITY ENGINEER NOTE No any significant changes. On Bipap for Desat and increase WOB. Able to tolerate O2 via NC at 4LPM during mealtime but needed to place back on Bipap after about 30 min to 1hr. Family at bedside. Kept clean, warm and dry. Needs attended. Kept call light at reach.
--- NOTE | 2017-06-04 19:28 | NUR ---
COUNTER WEIGHER NOTES RECEIVED PT IN BED. AWAKE, A/OX 2-3. INTERACTING WITH FAMILY AT BEDSIDE. TELE READS SR AT 75 BPM. ON BIPAP AT ORDERED SETTINGS, GRANT WELL. PT IN DIAPER. HUGH PICC, SALINE LOCKED. CALL LIGHT WITHIN REACH, TURNED AND REPOSITIONED, ALL NEEDS MET. PT DENIES PAIN AT THIS TIME.
--- NOTE | 2017-06-04 20:39 | NUR ---
PT IS AWAKE AND ALERT ON BIPAP. NO RESP DISTRESS. PT TOLERATING SETTINGS. FAMILY AT BEDSIDE. BIPAP ALARMS SET AND AUDIBLE. REDNESS ON THE BRIDGE OF THE NOSE. MEPILEX IN PLACE. WILL CONTINUE TO MONITOR. Addendum: 06/04/17 at 204 by ZAIN NAVARRETE RT Amended: Links added.
[2017-06-05] VITALS (17 sets, daily range): BP systolic 112–131; BP diastolic 26–81
[2017-06-05] MEDS: IPRATROPIUM NEB FS 0.5 MG/2.5 ML AMPUL.NEB NEB SCH ×4 (01:33→19:33)
[2017-06-05] MEDS: ALBUTEROL FS 2.5 MG/3 ML VIAL.NEB NEB SCH ×4 (01:33→19:33)
[2017-06-05] MEDS: methylPREDNISolone SOD SUCC 40 MG/ML VIAL IV SCH ×3 (06:31→21:25)
[2017-06-05] MEDS: FAMOTIDINE/PF INJ 20 MG/2 ML VIAL IV SCH ×2 (08:08→21:25)
[2017-06-05] MEDS: PHENYTOIN EXTENDED RELEASE 100 MG CAPSULE PO SCH ×3 (08:09→16:27)
[2017-06-05] MEDS: SENNOSIDES 8.6 MG TABLET PO SCH ×2 (08:09→16:28)
[2017-06-05] MEDS: ASCORBIC ACID 500 MG TABLET PO SCH (08:09)
[2017-06-05] MEDS: CLOPIDOGREL BISULFATE 75 MG TABLET PO SCH (08:09)
[2017-06-05] MEDS: ASPIRIN EC 81 MG TABLET.DR PO SCH (08:09)
[2017-06-05] MEDS: SPIRONOLACTONE 25 MG TABLET PO SCH (08:09)
[2017-06-05] MEDS: LEVOTHYROXINE SODIUM 88 MCG TABLET PO SCH (08:09)
[2017-06-05] MEDS: MULTIVITAMINS,THERAGRAN 1 UDTAB TABLET PO SCH (08:09)
[2017-06-05] MEDS: POTASSIUM CHLORIDE 10 MEQ TABLET.SA PO SCH (08:09)
[2017-06-05] MEDS: TAMSULOSIN 0.4 MG CAP.SR.24H PO SCH (08:09)
[2017-06-05] MEDS: DIVALPROEX SODIUM 250 MG TABLET.DR PO SCH ×2 (08:09→16:27)
[2017-06-05] MEDS: SERTRALINE HCL 50 MG TABLET PO SCH (08:09)
[2017-06-05] MEDS: LEVOFLOXACIN (750 MG) 750 MG TABLET PO SCH (08:09)
[2017-06-05] MEDS: HYDROGEL DRESSING 90 GM TUBE TP SCH (08:10)
[2017-06-05] MEDS: Z GUARD REMEDY 2 OZ OINT TP SCH ×2 (08:10→21:25)
[2017-06-05] MEDS: AMIODARONE HCL 200 MG TABLET PO SCH ×2 (08:12→16:28)
[2017-06-05] MEDS: PROSOURCE / PROSTAT (PYXIS) 30 ML UDC GT SCH (08:12)
[2017-06-05 09:02] LABS: ABG BASE EXCESS 0.9 mmol/L; ABG OXYGEN SATURATION 77.8 % (92.0-98.5); ABG PCO2 66.9 mmHg (35.0-45.0); ABG PH 7.259 (7.350-7.450); ABG PO2 47.9 mmHg (75.0-100.0); AaDO2 87.4 mmHg; COHb 0.6 % (0.5-1.5); MetHb 0.4 % (0.0-1.5); SITE, ABG Right Radial; VENT MODE, BG NASAL CANNULA
--- NOTE | 2017-06-05 09:16 | NUR ---
QUALITY REVIEW SPECIALIST NOTE S/E by Dr. Langford and Dr. Martin with family at bedside, discussed re: the POC. Family agreed for code status change to DNR/DNI.
--- NOTE | 2017-06-05 10:30 | NUR ---
TRANSMISSION MECHANIC NOTE Transferred patient to CARTER via bed using ACLS protocol. Accompanied by family at bedside. No any significant changes. Placed back to Bipap by RT. Endorsed to Amanda ELLIOTT for DARLENE.
--- NOTE | 2017-06-05 10:40 | NUR ---
CARTER RN NOTE RECEIVED PATIENT FROM ICU , SLEEPING BUT EASILY RESPONSE WHEN CALLING HIS BETINA, IN TELE MONITOR SR 96 , ON [employer] MATRES, RT UPPER ARM PICC LINE IN PLCE NO S\S INFECTION NOTED , BED IN LOWEST AND LOCKED POSITION , ALL NEEDS ATTENDED , AT BEDSIDE , WILL CONT TO MONITOR CLOSELY, NO SOB NOTED AT THIS TIME
--- NOTE | 2017-06-05 11:52 | NUR ---
CARTER RN NOTE KEEP CLEAN, DRY , REPOSITION Q 2 HOUR DONE ,ALL NEEDS ATTENDED, STILL ON BIPAP, NO SOB NOTED ,FAMILY AT BEDSIDE CALL LIGHT WITHIN REACH
--- NOTE | 2017-06-05 14:39 | NUR ---
CARTER ELLIOTT NOTE CALLED TO DR BHATIA NOTIFIED THAT WE NEED TO MONITOR URINE OUTPUT, OFFERED TO PLACE GALE NELSON STATED ITS OK TO PLACE, WILL SERVANDO Addendum: 06/05/17 at 1440 by ZAINAB DE SANTIAGO RN WESLEY NELSON
--- NOTE | 2017-06-05 18:23 | NUR ---
CARTER RN NOTE HAVING DINNER NOT IN ACUTE DISTRESS WILL F\U
--- NOTE | 2017-06-05 20:00 | NUR ---
Received awake alert and oriented x1.Lithuanian speaking with family at bedside.Follows simple commands.VS stable.SR.On Bipap /,rate 16,30%.Respiration even and unlabored.Saturation 100%.Denies pain or sob.HUGH PICC Line site intact.Turned and repositioned offloading pressure points.Continue monitoring.
[2017-06-06] VITALS: BP 116/68
[2017-06-06] MEDS: ALBUTEROL FS 2.5 MG/3 ML VIAL.NEB NEB SCH ×4 (01:32→20:03)
[2017-06-06] MEDS: IPRATROPIUM NEB FS 0.5 MG/2.5 ML AMPUL.NEB NEB SCH ×4 (01:33→20:03)
[2017-06-06 04:00] VITALS: BP 130/64
[2017-06-06] MEDS: methylPREDNISolone SOD SUCC 40 MG/ML VIAL IV SCH ×3 (05:25→21:21)
--- NOTE | 2017-06-06 06:30 | NUR ---
Patient resting.Night uneventful.VS stable.Remains on Bipap off for few min as requested by patient done by RT then back.Incontinent of urine condom cath not working.Bathed and complete linens changed.Turned and repositioned.Son at bedside all throughout the night. Due meds given.
[2017-06-06 07:18] LABS: BASOPHILS % (AUTO) 0.1 % (0.0-2.0); HEMATOCRIT 34 % (39-51); HEMOGLOBIN 10.2 g/dL (13.5-17.5); LYMPHOCYTES # (AUTO) 0.7 /CMM (0.8-4.8); LYMPHOCYTES % (AUTO) 7.3 % (20.0-44.0); MEAN CORPUSCULAR HEMOGLOBIN 23 PG (26.0-33.0); MEAN CORPUSCULAR HGB CONC 30 g/dl (31.0-36.0); MEAN CORPUSCULAR VOLUME 76 fL (80-96); MONOCYTES # (AUTO) 0.9 /CMM (0.1-1.30); MONOCYTES % (AUTO) 9.8 % (2.0-12.0); NEUTROPHILS # (AUTO) 7.8 /CMM (1.8-8.9); NEUTROPHILS % (AUTO) 82.8 % (43.0-81.0); PLATELET COUNT (AUTO) 216 /CMM (150-450); RDW COEFFICIENT OF VARIATION 18.1 (11.5-15.0); RED BLOOD CELL COUNT(AUTO) 4.44 MIL/uL (4.5-6.0); WHITE BLOOD COUNT (AUTO) 9.5 K/uL (4.3-11.0)
[2017-06-06 07:45] LABS: CALCIUM, SERUM 7.6 mg/dL (8.5-10.1); CARBON DIOXIDE 35 mmol/L (21-32); CHLORIDE 107 mmol/L (98-107); CREATININE 0.9 mg/dL (0.6-1.3); GLUCOSE 113 mg/dL (74-106); POTASSIUM 4.2 mmol/L (3.5-5.1); SODIUM SERUM 144 mmol/L (136-145); UREA NITROGEN, BLOOD 36 mg/dL (7-18)
[2017-06-06 08:00] VITALS: BP 138/69
[2017-06-06] MEDS: LEVOTHYROXINE SODIUM 88 MCG TABLET PO SCH (08:25)
[2017-06-06] MEDS: PROSOURCE / PROSTAT (PYXIS) 30 ML UDC GT SCH (08:26)
[2017-06-06] MEDS: FAMOTIDINE/PF INJ 20 MG/2 ML VIAL IV SCH ×2 (08:26→21:20)
[2017-06-06] MEDS: SPIRONOLACTONE 25 MG TABLET PO SCH (08:27)
[2017-06-06] MEDS: ASPIRIN EC 81 MG TABLET.DR PO SCH (08:27)
[2017-06-06] MEDS: TAMSULOSIN 0.4 MG CAP.SR.24H PO SCH (08:27)
[2017-06-06] MEDS: AMIODARONE HCL 200 MG TABLET PO SCH ×2 (08:27→17:23)
[2017-06-06] MEDS: PHENYTOIN EXTENDED RELEASE 100 MG CAPSULE PO SCH ×3 (08:27→17:23)
[2017-06-06] MEDS: DIVALPROEX SODIUM 250 MG TABLET.DR PO SCH ×2 (08:27→17:23)
[2017-06-06] MEDS: POTASSIUM CHLORIDE 10 MEQ TABLET.SA PO SCH (08:29)
[2017-06-06] MEDS: CLOPIDOGREL BISULFATE 75 MG TABLET PO SCH (08:29)
[2017-06-06] MEDS: LEVOFLOXACIN (750 MG) 750 MG TABLET PO SCH (08:29)
[2017-06-06] MEDS: Z GUARD REMEDY 2 OZ OINT TP SCH ×2 (08:30→21:21)
[2017-06-06] MEDS: ASCORBIC ACID 500 MG TABLET PO SCH (08:30)
[2017-06-06] MEDS: SENNOSIDES 8.6 MG TABLET PO SCH ×2 (08:30→17:23)
[2017-06-06] MEDS: MULTIVITAMINS,THERAGRAN 1 UDTAB TABLET PO SCH (08:30)
[2017-06-06] MEDS: SERTRALINE HCL 50 MG TABLET PO SCH (08:30)
[2017-06-06 12:00] VITALS: BP 126/67
[2017-06-06 16:00] VITALS: BP 130/65
[2017-06-06] MEDS: HYDROGEL DRESSING 90 GM TUBE TP SCH (17:22)
--- NOTE | 2017-06-06 19:08 | NUR ---
RN CLOSING NOTE PT REMAINED STABLE, ON AND OFF ON BIPAP WHILE EATING, NEEDS MET, MEDS GIVEN ORDERED, KEPT CLEAN AND DRY, FAMILY AT BEDSIDE, TEACHING REINFORCED, VERBALIZED UNDERSTANDING. WILL ENDORSE TO DISTRICT RECRUITER NURSE FOR DARLENE.
--- NOTE | 2017-06-06 19:44 | NUR ---
RN CARTER INITIAL NOTE PT RECEIVED IN NO ACUTE DISTRESS. FAMILY AT BEDSIDE FEEDING PT INTERM WITH CPAP IN USE EXCEPT FOR WHEN FEEDING. ON TELE WITH SR. REESE PICC LINE IS CLEAN DRY AND INTACT. CONDOM CATH IS DRAINING URINE. COMFORT AND SAFETY MEASURES TO BE ENSURED. WILL CONTINUE TO MONITOR FOR CHANGES.
[2017-06-06 20:00] VITALS: BP 134/67
[2017-06-07] VITALS (7 sets, daily range): BP systolic 110–140; BP diastolic 51–71
[2017-06-07] MEDS: IPRATROPIUM NEB FS 0.5 MG/2.5 ML AMPUL.NEB NEB SCH ×4 (02:02→20:10)
[2017-06-07] MEDS: ALBUTEROL FS 2.5 MG/3 ML VIAL.NEB NEB SCH ×4 (02:02→20:09)
[2017-06-07] MEDS: methylPREDNISolone SOD SUCC 40 MG/ML VIAL IV SCH ×3 (05:18→21:00)
--- NOTE | 2017-06-07 06:54 | NUR ---
RN CARTER CLOSING NOTE PT REMAINS IN NO ACUTE DISTRESS. ALL DUE MEDICATIONS CARRIED OUT ORDERED. WOUND CARE DONE ORDERED. WILL ENDORSE CARE TO AM NURSE.
[2017-06-07 06:59] LABS: EOSINOPHILS % (AUTO) 0.1 % (0.0-6.0); HEMATOCRIT 33 % (39-51); LYMPHOCYTES % (AUTO) 9.3 % (20.0-44.0); MEAN CORPUSCULAR HEMOGLOBIN 23 PG (26.0-33.0); MEAN CORPUSCULAR HGB CONC 31 g/dl (31.0-36.0); MEAN CORPUSCULAR VOLUME 76 fL (80-96); MONOCYTES # (AUTO) 1.5 /CMM (0.1-1.30); MONOCYTES % (AUTO) 13.7 % (2.0-12.0); NEUTROPHILS # (AUTO) 8.2 /CMM (1.8-8.9); NEUTROPHILS % (AUTO) 76.9 % (43.0-81.0); PLATELET COUNT (AUTO) 213 /CMM (150-450); RDW COEFFICIENT OF VARIATION 18.3 (11.5-15.0); RED BLOOD CELL COUNT(AUTO) 4.31 MIL/uL (4.5-6.0); WHITE BLOOD COUNT (AUTO) 10.6 K/uL (4.3-11.0)
--- NOTE | 2017-06-07 07:00 | NUR ---
RN CARTER NOTE RECEIVED PT ON BED, A/Ox2-3, ON BIPAP AT THIS TIME, NO DISTRESS NOTED, SUPPORTIVE FAMILY AT THE BEDSIDE, ON TELE SR IN 60'S , R UA PICC LINE , CLEAN DRY AND INTACT, SR UPx3, CALL LIGHT WITHIN EASY REACH, COMFORT AND SAFETY MEASURES TO BE ENSURED. WILL CONTINUE TO MONITOR PT CLOSELY .
[2017-06-07] MEDS: CLOPIDOGREL BISULFATE 75 MG TABLET PO SCH (08:29)
[2017-06-07] MEDS: TAMSULOSIN 0.4 MG CAP.SR.24H PO SCH (08:29)
[2017-06-07] MEDS: POTASSIUM CHLORIDE 10 MEQ TABLET.SA PO SCH (08:29)
[2017-06-07] MEDS: LEVOFLOXACIN (750 MG) 750 MG TABLET PO SCH (08:29)
[2017-06-07] MEDS: MULTIVITAMINS,THERAGRAN 1 UDTAB TABLET PO SCH (08:29)
[2017-06-07] MEDS: LEVOTHYROXINE SODIUM 88 MCG TABLET PO SCH (08:29)
[2017-06-07] MEDS: FAMOTIDINE/PF INJ 20 MG/2 ML VIAL IV SCH ×2 (08:29→21:00)
[2017-06-07] MEDS: DIVALPROEX SODIUM 250 MG TABLET.DR PO SCH ×2 (08:29→16:26)
[2017-06-07] MEDS: SENNOSIDES 8.6 MG TABLET PO SCH ×2 (08:30→16:26)
[2017-06-07] MEDS: SPIRONOLACTONE 25 MG TABLET PO SCH (08:30)
[2017-06-07] MEDS: ASPIRIN EC 81 MG TABLET.DR PO SCH (08:30)
[2017-06-07] MEDS: PHENYTOIN EXTENDED RELEASE 100 MG CAPSULE PO SCH ×3 (08:30→16:26)
[2017-06-07] MEDS: ASCORBIC ACID 500 MG TABLET PO SCH (08:30)
[2017-06-07] MEDS: AMIODARONE HCL 200 MG TABLET PO SCH ×2 (08:31→16:26)
[2017-06-07] MEDS: SERTRALINE HCL 50 MG TABLET PO SCH (08:32)
[2017-06-07] MEDS: PROSOURCE / PROSTAT (PYXIS) 30 ML UDC GT SCH (08:32)
[2017-06-07] MEDS: Z GUARD REMEDY 2 OZ OINT TP SCH ×2 (08:34→21:00)
[2017-06-07] MEDS: HYDROGEL DRESSING 90 GM TUBE TP SCH (08:35)
[2017-06-07] MEDS ORDERED: PRED20TA PO (08:54)
--- NOTE | 2017-06-07 09:00 | NUR ---
RN NOTES MODERATE AMOUNT OF BLOOD URINE AND BLOOD CLOTHS NOTED IN THE DIAPER , DR. BHATIA NOTIFIED . VSS STABLE , CONTINUE TO MONITOR.
--- NOTE | 2017-06-07 10:00 | NUR ---
RN NOTES LEFT LOWER ARM SKIN TEAR NOTICED , PICTURE TAKEN , WOUND CONSULT ORDERED, KEPT SKIN CLEAN , MEPILEX APPLIED . CONTINUE TO MONITOR.
--- NOTE | 2017-06-07 10:30 | NUR ---
RN NOTES PT BACK ON BIPAP, UNABLE TO TOLERATE 02 N/C AT 1.5 L , O2 SAT DOWN TO 78% ON O2 N/C , PT PLACED BACK ON BIPAP BY RT . O2 SAT UP TO 98% WHEN PT PLACED ON BIPAP, CONTINUE TO MONITOR PT CLSOELY.
--- NOTE | 2017-06-07 12:00 | NUR ---
RN NOTES DR. BHATIA NOTIFIED THAT PT HAS BEEN PLACED BACK ON BIPAP. O2 SA 98%. CONTINUE TO MONITOR .
--- NOTE | 2017-06-07 18:00 | NUR ---
RN NOTES PT , A/OX2, TOLERATING BIPAP WELL, O2 SAT 96%, R UPPER ARM PICC LINE CDI, LIGHT PINKISH URIN COLOR WITH A FEW OLD BLOOD CLOTS NOTED , VSS STABLE ,SUPPORTIVE IS AT THE BEDSIDE, SR UPx3, CALL LIGHT WITHIN EASY REACH, WILL ENDORSE TO POPPY QUINONEZ RN FOR DARLENE .
--- NOTE | 2017-06-07 19:20 | NUR ---
RN INITIAL NOTE RECEIVED PT IN NO ACUTE DISTRESS IN BED. PT IS A/O X 3 AND ABLE TO MAKE NEEDS KNOWN. PT IS ON O2 VIA BIPAP AND TOLERATING WELL WITH O2 SAT @ 95%. PT IS NOT C/O ANY SOB, DIFFICULTY BREATHING OR PAIN AT THIS TIME. PT IS ON TELE WITH SR ON THE MONITOR. NOTED BLEEDING FROM PENIS WITH CLOTS AND MD AWARE. WILL CONTINUE TO CLEAN SITE. PT HAS HUGH PICC LINE THAT IS CLEAN DRY INTACT AND PATENT WITH SALINE FLUSH. BED IN LOW LOCK POSITION WITH RIALS UP X 2. CALL LIGHT WITHIN REACH AND ALL SAFETY MEASURES ENSURED AND CARRIED OUT. WILL CONTINUE TO MONITOR FOR ANY CHANGES IN CONDITION.
[2017-06-08] VITALS: BP 114/55
[2017-06-08] MEDS: IPRATROPIUM NEB FS 0.5 MG/2.5 ML AMPUL.NEB NEB SCH ×4 (02:08→19:50)
[2017-06-08] MEDS: ALBUTEROL FS 2.5 MG/3 ML VIAL.NEB NEB SCH ×4 (02:08→19:50)
[2017-06-08 04:00] VITALS: BP 120/55
--- NOTE | 2017-06-08 06:52 | NUR ---
RN CLOSING NOTE PT REMAINS IN NO ACUTE DISTRESS IN BED. PT DID NOT HAVE ANY SIGNIFICANT CHANGE IN CONDITION DURING SHIFT. ALL NEEDS MET, ALL ORDERS CARRIED OUT. WILL ENDORSE CARE TO AM RN FOR CONTINUITY OF CARE.
--- NOTE | 2017-06-08 07:05 | NUR ---
RN INITIAL NOTE PATIENT RECEIVED IN BED, AWAKE, ALERT CONFUSED. MAORI SPEAKING, FAMILY AT BEDSIDE, ABLE TO MAKE NEEDS KNOWN. PATIENT ON BIPAP WITH FI02 OF 24, SATING WELL. NO S/S OF RESPIRATORY DISTRESS OR SOB. SINUS RHYTHM ON TELE MONITOR. SKIN IS WARM AND DRY TO TOUCH. IV SITE FLUSHED, PATENT. SAFETY PRECAUTIONS IMPLEMENTED, BED IN LOCKED, LOW POSITION WITH TWO SIDE RAILS UP. CALL LIGHT AND BELONGINGS WITHIN EASY REACH WILL CONTINUE TO MONITOR.
--- NOTE | 2017-06-08 07:11 | NUR ---
WOUND CARE CONSULT PATIENT SEEN AND LEFT FOREARM SKIN TEAR EVALUATED. RECOMMENDATIONS MADE FOR TREATMENT AND MD IN AGREEMENT. ALL DISCUSSED WITH NURSING STAFF. ALL SKIN MANAGMENT AND PRESSURE ULCER PREVENTION NOTED TO BE IN PLACE. Addendum: 06/08/17 at 0713 by FCO AMATO WNDNU Amended: Links added.
[2017-06-08 07:15] LABS: BASOPHILS % (AUTO) 0.1 % (0.0-2.0); EOSINOPHILS % (AUTO) 0.2 % (0.0-6.0); HEMATOCRIT 32 % (39-51); HEMOGLOBIN 9.8 g/dL (13.5-17.5); LYMPHOCYTES # (AUTO) 1.4 /CMM (0.8-4.8); LYMPHOCYTES % (AUTO) 8.1 % (20.0-44.0); MEAN CORPUSCULAR HEMOGLOBIN 23 PG (26.0-33.0); MEAN CORPUSCULAR HGB CONC 31 g/dl (31.0-36.0); MEAN CORPUSCULAR VOLUME 76 fL (80-96); MONOCYTES # (AUTO) 2.1 /CMM (0.1-1.30); MONOCYTES % (AUTO) 12.1 % (2.0-12.0); NEUTROPHILS # (AUTO) 13.6 /CMM (1.8-8.9); NEUTROPHILS % (AUTO) 79.5 % (43.0-81.0); PLATELET COUNT (AUTO) 242 /CMM (150-450); RDW COEFFICIENT OF VARIATION 18.1 (11.5-15.0); RED BLOOD CELL COUNT(AUTO) 4.19 MIL/uL (4.5-6.0); WHITE BLOOD COUNT (AUTO) 17.1 K/uL (4.3-11.0)
[2017-06-08 07:23] LABS: CALCIUM, SERUM 7.8 mg/dL (8.5-10.1); CARBON DIOXIDE 32 mmol/L (21-32); CHLORIDE 105 mmol/L (98-107); CREATININE 0.9 mg/dL (0.6-1.3); GLUCOSE 114 mg/dL (74-106); POTASSIUM 4.4 mmol/L (3.5-5.1); SODIUM SERUM 142 mmol/L (136-145); UREA NITROGEN, BLOOD 34 mg/dL (7-18)
[2017-06-08 08:00] VITALS: BP 94/53
[2017-06-08] MEDS: LEVOTHYROXINE SODIUM 88 MCG TABLET PO SCH (08:16)
[2017-06-08] MEDS: PHENYTOIN EXTENDED RELEASE 100 MG CAPSULE PO SCH ×3 (08:16→17:34)
[2017-06-08] MEDS: MULTIVITAMINS,THERAGRAN 1 UDTAB TABLET PO SCH (08:16)
[2017-06-08] MEDS: SPIRONOLACTONE 25 MG TABLET PO SCH (08:16)
[2017-06-08] MEDS: SERTRALINE HCL 50 MG TABLET PO SCH (08:16)
[2017-06-08] MEDS: DIVALPROEX SODIUM 250 MG TABLET.DR PO SCH ×2 (08:17→17:34)
[2017-06-08] MEDS: TAMSULOSIN 0.4 MG CAP.SR.24H PO SCH (08:17)
[2017-06-08] MEDS: ASCORBIC ACID 500 MG TABLET PO SCH (08:17)
[2017-06-08] MEDS: LEVOFLOXACIN (750 MG) 750 MG TABLET PO SCH (08:17)
[2017-06-08] MEDS: CLOPIDOGREL BISULFATE 75 MG TABLET PO SCH (08:17)
[2017-06-08] MEDS: SENNOSIDES 8.6 MG TABLET PO SCH ×2 (08:17→17:34)
[2017-06-08] MEDS: ASPIRIN EC 81 MG TABLET.DR PO SCH (08:18)
[2017-06-08] MEDS: methylPREDNISolone SOD SUCC 40 MG/ML VIAL IV SCH ×2 (08:18→21:28)
[2017-06-08] MEDS: POTASSIUM CHLORIDE 10 MEQ TABLET.SA PO SCH (08:18)
[2017-06-08] MEDS: FAMOTIDINE/PF INJ 20 MG/2 ML VIAL IV SCH ×2 (08:18→21:28)
[2017-06-08] MEDS: PROSOURCE / PROSTAT (PYXIS) 30 ML UDC GT SCH (08:19)
[2017-06-08] MEDS: AMIODARONE HCL 200 MG TABLET PO SCH ×2 (08:19→17:34)
[2017-06-08] MEDS: HYDROGEL DRESSING 90 GM TUBE TP SCH (08:20)
[2017-06-08] MEDS: NEOMY SULF/BACITRAC ZN/POLY 15 GM TUBE TP SCH (08:20)
[2017-06-08] MEDS: Z GUARD REMEDY 2 OZ OINT TP SCH ×2 (08:20→21:29)
[2017-06-08 12:00] VITALS: BP 111/51
[2017-06-08 16:00] VITALS: BP_SYST 105; BP_SYST 111; BP_DIAS 48; BP_DIAS 51
--- NOTE | 2017-06-08 19:01 | NUR ---
RN CLOSING NOTE CARRIED OUT ALL MD ORDERS, PATIENTS NEEDS ANTICIPATED, PATIENT KEPT CLEAN AND DRY. SAFETY PRECAUTIONS IN PLACE AT ALL TIMES. REPORT WILL BE GIVEN TO PM RN FOR DARLENE
[2017-06-08 20:00] VITALS: BP 112/71
[2017-06-09] VITALS: BP 124/59
[2017-06-09] MEDS: ALBUTEROL FS 2.5 MG/3 ML VIAL.NEB NEB SCH ×4 (01:27→19:28)
[2017-06-09] MEDS: IPRATROPIUM NEB FS 0.5 MG/2.5 ML AMPUL.NEB NEB SCH ×4 (01:27→19:29)
[2017-06-09 04:00] VITALS: BP 115/45
--- NOTE | 2017-06-09 07:25 | NUR ---
CARTER RN CLOSING NOTES NO SIGNIFICANT CHANGES OVERNIGHT. NO RESPIRATORY DISTRESS NOTED. ON BIPAP THROUGH THE NIGHT. NO C/O OF PAIN OR DISCOMFORT. NO C/O SOB. ALL NEEDS ANTICIPATED AND MET. SON AT BEDSIDE. KEPT CLEAN AND DRY. TURNED AND REPOSITIONED Q2 AND PRN. WOUND TX DONE ORDERED. SIDE RAILS UP AND LOCKED. BED KEPT AT LOWEST POSITION. CALL LIGHT KEPT WITHIN EASY REACH. CONTINUITY OF ARE ENDORSED TO AM NURSE.
[2017-06-09 07:32] LABS: EOSINOPHILS # (AUTO) 0.1 /CMM (0.0-0.7); EOSINOPHILS % (AUTO) 0.4 % (0.0-6.0); HEMATOCRIT 30 % (39-51); HEMOGLOBIN 9.3 g/dL (13.5-17.5); LYMPHOCYTES # (AUTO) 1.4 /CMM (0.8-4.8); LYMPHOCYTES % (AUTO) 10.2 % (20.0-44.0); MEAN CORPUSCULAR HEMOGLOBIN 23 PG (26.0-33.0); MEAN CORPUSCULAR HGB CONC 31 g/dl (31.0-36.0); MEAN CORPUSCULAR VOLUME 75 fL (80-96); MONOCYTES # (AUTO) 1.4 /CMM (0.1-1.30); MONOCYTES % (AUTO) 10.2 % (2.0-12.0); NEUTROPHILS # (AUTO) 10.6 /CMM (1.8-8.9); NEUTROPHILS % (AUTO) 79.2 % (43.0-81.0); PLATELET COUNT (AUTO) 231 /CMM (150-450); RED BLOOD CELL COUNT(AUTO) 3.99 MIL/uL (4.5-6.0); WHITE BLOOD COUNT (AUTO) 13.4 K/uL (4.3-11.0)
[2017-06-09 07:48] LABS: CALCIUM, SERUM 7.7 mg/dL (8.5-10.1); CARBON DIOXIDE 34 mmol/L (21-32); CHLORIDE 106 mmol/L (98-107); CREATININE 0.9 mg/dL (0.6-1.3); GLUCOSE 108 mg/dL (74-106); POTASSIUM 4.3 mmol/L (3.5-5.1); SODIUM SERUM 142 mmol/L (136-145); UREA NITROGEN, BLOOD 27 mg/dL (7-18)
[2017-06-09 08:00] VITALS: BP_SYST 129; BP_DIAS 62; BP_DIAS 69
[2017-06-09] MEDS: CLOPIDOGREL BISULFATE 75 MG TABLET PO SCH (08:26)
[2017-06-09] MEDS: LEVOTHYROXINE SODIUM 88 MCG TABLET PO SCH (08:26)
[2017-06-09] MEDS: TAMSULOSIN 0.4 MG CAP.SR.24H PO SCH (08:26)
[2017-06-09] MEDS: ASPIRIN EC 81 MG TABLET.DR PO SCH (08:26)
[2017-06-09] MEDS: ASCORBIC ACID 500 MG TABLET PO SCH (08:26)
[2017-06-09] MEDS: SPIRONOLACTONE 25 MG TABLET PO SCH (08:26)
[2017-06-09] MEDS: MULTIVITAMINS,THERAGRAN 1 UDTAB TABLET PO SCH (08:26)
[2017-06-09] MEDS: SERTRALINE HCL 50 MG TABLET PO SCH (08:26)
[2017-06-09] MEDS: LEVOFLOXACIN (750 MG) 750 MG TABLET PO SCH (08:26)
[2017-06-09] MEDS: DIVALPROEX SODIUM 250 MG TABLET.DR PO SCH ×2 (08:27→18:19)
[2017-06-09] MEDS: PHENYTOIN EXTENDED RELEASE 100 MG CAPSULE PO SCH ×3 (08:27→18:20)
[2017-06-09] MEDS: FAMOTIDINE/PF INJ 20 MG/2 ML VIAL IV SCH ×2 (08:28→20:22)
[2017-06-09] MEDS: PROSOURCE / PROSTAT (PYXIS) 30 ML UDC GT SCH (08:28)
[2017-06-09] MEDS: POTASSIUM CHLORIDE 10 MEQ TABLET.SA PO SCH (08:28)
[2017-06-09] MEDS: AMIODARONE HCL 200 MG TABLET PO SCH ×2 (08:28→18:19)
[2017-06-09] MEDS: SENNOSIDES 8.6 MG TABLET PO SCH ×2 (08:28→18:19)
[2017-06-09] MEDS: methylPREDNISolone SOD SUCC 40 MG/ML VIAL IV SCH ×2 (08:30→20:22)
[2017-06-09] MEDS: HYDROGEL DRESSING 90 GM TUBE TP SCH (08:46)
[2017-06-09] MEDS: Z GUARD REMEDY 2 OZ OINT TP SCH ×2 (08:47→20:22)
[2017-06-09] MEDS: NEOMY SULF/BACITRAC ZN/POLY 15 GM TUBE TP SCH (08:47)
[2017-06-09 11:12] LABS: ABG BASE EXCESS 2.5 mmol/L; ABG OXYGEN SATURATION 88.8 % (92.0-98.5); ABG PCO2 52.9 mmHg (35.0-45.0); ABG PH 7.353 (7.350-7.450); ABG PO2 59.9 mmHg (75.0-100.0); AaDO2 48.3 mmHg; COHb 0.9 % (0.5-1.5); MetHb 0.3 % (0.0-1.5); O2Hb 87.7 % (94.0-97.0); SITE, ABG Right Radial; VENT MODE, BG BIPAP 18/8 RR16 PS10
[2017-06-09 12:00] VITALS: BP 107/48
[2017-06-09 16:00] VITALS: BP_SYST 103; BP_SYST 106; BP_DIAS 53
--- NOTE | 2017-06-09 19:00 | NUR ---
RN CLOSING NOTE NO SIGNIFICANT CHANGES OVER THE SHIFT. NO RESPIRATORY DISTRESS NOTED. ON BIPAP THROUGH THE DAY. NO C/O OF PAIN OR DISCOMFORT. NO C/O SOB. ALL NEEDS ANTICIPATED AND MET. AT BEDSIDE. KEPT CLEAN AND DRY. TURNED AND REPOSITIONED Q2 AND PRN. WOUND TX DONE ORDERED. SIDE RAILS UP AND LOCKED. BED KEPT AT LOWEST POSITION. CALL LIGHT KEPT WITHIN EASY REACH. CONTINUITY OF ARE ENDORSED TO PM NURSE.
--- NOTE | 2017-06-09 19:05 | NUR ---
RN OPENING NOTES RECEIVED REPORT FROM ERI ELLIOTT. PATIENT A/A/O X2-3, ABLE TO MAKE NEEDS KNOWN. BREATHING EVEN & UNLABORED, ON BIPAP W/ SETTINGS IPAP 18, 8, RATE 16, FIO2 21%, TOLERATING WELL. DENIES SOB OR DIFFICULTY BREATHING. ON TELE SINUS RHYTHM W/ BBB IN THE 70S. RIGHT UPPER ARM PICC LINE PATENT W/ DRESSING CDI, ON SALINE LOCK. DENIES ANY PAIN OR DISCOMFORT @ THIS TIME. SAFETY MEASURES IN PLACE W/ SIDE RAILS UP, BED LOCKED IN LOWEST POSITION & CALL LIGHT WITHIN REACH. FAMILY @ BEDSIDE. WILL CONTINUE TO MONITOR.
[2017-06-09 20:00] VITALS: BP 118/58
[2017-06-10] VITALS: BP 103/50
[2017-06-10] MEDS: IPRATROPIUM NEB FS 0.5 MG/2.5 ML AMPUL.NEB NEB SCH ×4 (01:16→20:01)
[2017-06-10] MEDS: ALBUTEROL FS 2.5 MG/3 ML VIAL.NEB NEB SCH ×4 (01:16→20:01)
[2017-06-10 04:00] VITALS: BP 110/57
--- NOTE | 2017-06-10 06:48 | NUR ---
RN CLOSING NOTES PATIENT RESTING COMFORTABLY IN BED W/ SON @ BEDSIDE. NO ACUTE RESPIRATORY DISTRESS OVERNIGHT, TOLERATED BIPAP WELL. ALL DUE MEDS GIVEN. KEPT CLEAN & DRY. WILL ENDORSE DARLENE TO AM RN.
[2017-06-10 08:00] VITALS: BP 148/60
--- NOTE | 2017-06-10 08:15 | NUR ---
ms rn initial notes Received patient in bed, awake, head of bed elevated, no SOB or distress noted, on 02 @ 2lpm via NC and tolerated well. No complaint of pain or discomfort noted, at bedside. IV intact and patent. Kept patient clean and comfortable in bed, call light with in patient reach. Will continue to monitor accordingly.
[2017-06-10] MEDS: ASCORBIC ACID 500 MG TABLET PO SCH (09:55)
[2017-06-10] MEDS: PHENYTOIN EXTENDED RELEASE 100 MG CAPSULE PO SCH ×3 (09:55→16:52)
[2017-06-10] MEDS: SERTRALINE HCL 50 MG TABLET PO SCH (09:55)
[2017-06-10] MEDS: FAMOTIDINE/PF INJ 20 MG/2 ML VIAL IV SCH ×2 (09:55→21:41)
[2017-06-10] MEDS: AMIODARONE HCL 200 MG TABLET PO SCH ×2 (09:55→16:52)
[2017-06-10] MEDS: SPIRONOLACTONE 25 MG TABLET PO SCH (09:55)
[2017-06-10] MEDS: DIVALPROEX SODIUM 250 MG TABLET.DR PO SCH ×2 (09:55→16:52)
[2017-06-10] MEDS: SENNOSIDES 8.6 MG TABLET PO SCH ×2 (09:55→16:51)
[2017-06-10] MEDS: ASPIRIN EC 81 MG TABLET.DR PO SCH (09:55)
[2017-06-10] MEDS: LEVOFLOXACIN (750 MG) 750 MG TABLET PO SCH (09:56)
[2017-06-10] MEDS: Z GUARD REMEDY 2 OZ OINT TP SCH ×2 (09:56→21:42)
[2017-06-10] MEDS: POTASSIUM CHLORIDE 10 MEQ TABLET.SA PO SCH (09:56)
[2017-06-10] MEDS: HYDROGEL DRESSING 90 GM TUBE TP SCH (09:56)
[2017-06-10] MEDS: CLOPIDOGREL BISULFATE 75 MG TABLET PO SCH (09:56)
[2017-06-10] MEDS: TAMSULOSIN 0.4 MG CAP.SR.24H PO SCH (09:56)
[2017-06-10] MEDS: MULTIVITAMINS,THERAGRAN 1 UDTAB TABLET PO SCH (09:56)
[2017-06-10] MEDS: NEOMY SULF/BACITRAC ZN/POLY 15 GM TUBE TP SCH (09:57)
[2017-06-10] MEDS: PROSOURCE / PROSTAT (PYXIS) 30 ML UDC GT SCH (09:59)
[2017-06-10] MEDS: methylPREDNISolone SOD SUCC 40 MG/ML VIAL IV SCH (09:59)
[2017-06-10] MEDS: LEVOTHYROXINE SODIUM 88 MCG TABLET PO SCH (09:59)
[2017-06-10 12:00] VITALS: BP 125/61
[2017-06-10 16:00] VITALS: BP 104/56
--- NOTE | 2017-06-10 19:14 | NUR ---
radiotelegraph operator servicer closing notes All needs provided, attended, and anticipated. Kept patient clean and comfortable in bed, call light with in patient reach, will continue to monitor accordingly. Endorsed to next shift RN to continue care. On BIPAP machine and tolerating well. On tele monitor SR heart rate of 84 with BBB.
--- NOTE | 2017-06-10 19:30 | NUR ---
DISPLAY AND BANNER DESIGNER INITIAL NOTE RECEIVED PT RESTING IN BED WITH FAMILY AT BEDSIDE. A/O X2, SWISS SPEAKING AND ABLE TO MAKE SOME NEEDS KNOWN. ON BIPAP WITH EPISODES OF REMOVAL. BREATHING REGULAR AND UNLABORED SATURATING 98% AT THIS TIME. TELE- SINUS RHYTHM WITH BBB. IV HUGH PICC LINE CLEAN, INTACT, PATENT AND FLUSHING WELL. BED LOCKED IN PLACE AND IN LOWEST POSITION. CALL LIGHT WITHIN REACH AT ALL TIMES. WILL CONTINUE TO MONITOR.
[2017-06-10 20:00] VITALS: BP 92/48
[2017-06-11] VITALS: BP 113/54
[2017-06-11] MEDS: ALBUTEROL FS 2.5 MG/3 ML VIAL.NEB NEB SCH ×4 (01:26→19:27)
[2017-06-11] MEDS: IPRATROPIUM NEB FS 0.5 MG/2.5 ML AMPUL.NEB NEB SCH ×4 (01:26→19:26)
[2017-06-11 04:00] VITALS: BP 97/47
--- NOTE | 2017-06-11 06:50 | NUR ---
ETHICS OFFICER CLOSING NOTE PT REMAINED STABLE DURING SHIFT. NO ACUTE DISTRESS NOTED. BIPAP WELL TOLERATED. REPOSITIONED Q2H. WOUND TREATMENT PERFORMED ORDERED. ALL NEEDS ATTENDED TO PROMPTLY. DAUGHTER AT BEDSIDE. CALL LIGHT WITHIN REACH AT ALL TIMES. WILL ENDORSE TO NEXT SHIFT FOR CONTINUITY OF CARE.
--- NOTE | 2017-06-11 07:00 | NUR ---
RN NOTE RECEIVED PT ON BED, A/O X2, IRISH SPEAKING , ON BIPAP , NO DISTRESS NOTED, ON TELE- SINUS RHYTHM WITH BBB AND OCCASIONAL PVC'S, IV R UA PICC LINE CLEAN, INTACT, PATENT AND FLUSHING WELL. BED LOCKED AND IN LOWEST POSITION , SUPPORTIVE FAMILY AT THE BEDSIDE, CALL LIGHT WITHIN EASY REACH AT ALL TIMES. WILL CONTINUE TO MONITOR CLOSELY .
[2017-06-11 08:00] VITALS: BP 112/49
[2017-06-11] MEDS: HYDROGEL DRESSING 90 GM TUBE TP SCH (08:42)
[2017-06-11] MEDS: NEOMY SULF/BACITRAC ZN/POLY 15 GM TUBE TP SCH (08:42)
[2017-06-11] MEDS: Z GUARD REMEDY 2 OZ OINT TP SCH ×2 (08:42→20:42)
[2017-06-11] MEDS: methylPREDNISolone SOD SUCC 40 MG/ML VIAL IV SCH (08:44)
[2017-06-11] MEDS: FAMOTIDINE/PF INJ 20 MG/2 ML VIAL IV SCH ×2 (08:44→20:42)
[2017-06-11] MEDS: TAMSULOSIN 0.4 MG CAP.SR.24H PO SCH (08:44)
[2017-06-11] MEDS: ASPIRIN EC 81 MG TABLET.DR PO SCH (08:44)
[2017-06-11] MEDS: ASCORBIC ACID 500 MG TABLET PO SCH (08:44)
[2017-06-11] MEDS: AMIODARONE HCL 200 MG TABLET PO SCH ×2 (08:45→16:31)
[2017-06-11] MEDS: PHENYTOIN EXTENDED RELEASE 100 MG CAPSULE PO SCH ×3 (08:45→16:30)
[2017-06-11] MEDS: LEVOTHYROXINE SODIUM 88 MCG TABLET PO SCH (08:45)
[2017-06-11] MEDS: SENNOSIDES 8.6 MG TABLET PO SCH ×2 (08:45→16:30)
[2017-06-11] MEDS: MULTIVITAMINS,THERAGRAN 1 UDTAB TABLET PO SCH (08:45)
[2017-06-11] MEDS: SERTRALINE HCL 50 MG TABLET PO SCH (08:45)
[2017-06-11] MEDS: SPIRONOLACTONE 25 MG TABLET PO SCH (08:46)
[2017-06-11] MEDS: POTASSIUM CHLORIDE 10 MEQ TABLET.SA PO SCH (08:46)
[2017-06-11] MEDS: DIVALPROEX SODIUM 250 MG TABLET.DR PO SCH ×2 (08:46→16:30)
[2017-06-11] MEDS: CLOPIDOGREL BISULFATE 75 MG TABLET PO SCH (08:46)
[2017-06-11] MEDS: LEVOFLOXACIN (750 MG) 750 MG TABLET PO SCH (08:48)
[2017-06-11] MEDS: PROSOURCE / PROSTAT (PYXIS) 30 ML UDC GT SCH (08:48)
[2017-06-11 12:00] VITALS: BP 98/51
--- NOTE | 2017-06-11 12:00 | NUR ---
RN NOTES PT'S TAKES PT'S BIPAP OFF AT TIMES WITHOUT NOTIFYING NURSING STAFF. ADVISED PT AND PT'S HOW IMPORTANT IT IS TO KEEP THE THE BIPAP ON AT ALL TIME , AND THE RISKS OF NOT BEING COMPLIANCE WITH PLAN OF CARE . PT'S VERBALIZES UNDERSTANDING . CONTINUE TO MONITOR PT CLSOELY .
[2017-06-11 16:00] VITALS: BP 101/46
--- NOTE | 2017-06-11 18:00 | NUR ---
RN NOTES PT STABLE , O2 SAT 98%, TOLERATING BIPAP WELL , SUPPORTIVE FAMILY AT THE BEDSIDE , SR UPx3. CALL LIGHT WITHIN EASY REACH, NO SIGNIFICANT CHANGES NOTED ON THIS SHIFT.
--- NOTE | 2017-06-11 19:27 | NUR ---
SOLID WASTE ANALYST INITIAL NOTE RECEIVED PT IN BED WITH AT BEDSIDE. A/O X2 AND ABLE TO MAKE SOME NEEDS KNOWN IN SAMI. ON CONTINUOUS BIPAP AND SATURATING WELL. BREATHING IS EVEN AND UNLABORED. TELE- 72 WITH BBB AND OCCASIONAL PVC. IV HUGH PICC LINE CLEAN, PATENT, CLEAN AND FLUSHING WELL. BED IN LOWEST POSITION AND LOCKED IN PLACE WITH BED ALARM ON. CALL LIGHT WITHIN REACH. WILL CONTINUE TO MONITOR.
[2017-06-11 20:00] VITALS: BP 105/59
[2017-06-12] VITALS: BP 125/55
[2017-06-12] MEDS: IPRATROPIUM NEB FS 0.5 MG/2.5 ML AMPUL.NEB NEB SCH ×3 (01:09→13:14)
[2017-06-12] MEDS: ALBUTEROL FS 2.5 MG/3 ML VIAL.NEB NEB SCH ×3 (01:09→13:14)
[2017-06-12 04:00] VITALS: BP 125/61
--- NOTE | 2017-06-12 06:42 | NUR ---
OUTSIDE INSTALLER APPRENTICE CLOSING NOTE PT REMAINED STABLE DURING SHIFT. NO ACUTE DISTRESS NOTED. ON 2L OF O2 VIA NC AT THIS TIME AT SATURATING 99%. SON AT BEDSIDE THROUGHOUT THE NIGHT. KEPT CLEAN AND DRY AT ALL TIMES. WOUND TREATMENT PERFORMED AND WELL TOLERATED. CALL LIGHT WITHIN REACH. WILL ENDORSE TO NEXT SHIFT FOR CONTINUITY OF CARE.
[2017-06-12 08:00] VITALS: BP 136/61
[2017-06-12] MEDS: SENNOSIDES 8.6 MG TABLET PO SCH ×2 (08:22→17:12)
[2017-06-12] MEDS: LEVOTHYROXINE SODIUM 88 MCG TABLET PO SCH (08:22)
[2017-06-12] MEDS: SERTRALINE HCL 50 MG TABLET PO SCH (08:22)
[2017-06-12] MEDS: ASPIRIN EC 81 MG TABLET.DR PO SCH (08:22)
[2017-06-12] MEDS: CLOPIDOGREL BISULFATE 75 MG TABLET PO SCH (08:23)
[2017-06-12] MEDS: MULTIVITAMINS,THERAGRAN 1 UDTAB TABLET PO SCH (08:23)
[2017-06-12] MEDS: TAMSULOSIN 0.4 MG CAP.SR.24H PO SCH (08:23)
[2017-06-12] MEDS: PHENYTOIN EXTENDED RELEASE 100 MG CAPSULE PO SCH ×3 (08:23→17:12)
[2017-06-12] MEDS: LEVOFLOXACIN (750 MG) 750 MG TABLET PO SCH (08:23)
[2017-06-12] MEDS: ASCORBIC ACID 500 MG TABLET PO SCH (08:23)
[2017-06-12] MEDS: AMIODARONE HCL 200 MG TABLET PO SCH ×2 (08:24→17:13)
[2017-06-12] MEDS: POTASSIUM CHLORIDE 10 MEQ TABLET.SA PO SCH (08:24)
[2017-06-12] MEDS: SPIRONOLACTONE 25 MG TABLET PO SCH (08:24)
[2017-06-12] MEDS: FAMOTIDINE/PF INJ 20 MG/2 ML VIAL IV SCH (08:24)
[2017-06-12] MEDS: methylPREDNISolone SOD SUCC 40 MG/ML VIAL IV SCH (08:24)
[2017-06-12] MEDS: DIVALPROEX SODIUM 250 MG TABLET.DR PO SCH ×2 (08:24→17:12)
[2017-06-12] MEDS: HYDROGEL DRESSING 90 GM TUBE TP SCH (08:25)
[2017-06-12] MEDS: NEOMY SULF/BACITRAC ZN/POLY 15 GM TUBE TP SCH (08:25)
[2017-06-12] MEDS: Z GUARD REMEDY 2 OZ OINT TP SCH (08:25)
[2017-06-12] MEDS: PROSOURCE / PROSTAT (PYXIS) 30 ML UDC GT SCH (08:29)
[2017-06-12 16:00] VITALS: BP 105/66
[2017-06-12 17:13] VITALS: BP 105/66
--- NOTE | 2017-06-12 18:37 | NUR ---
DISCHARGE NOTE PT WILL BE DC HOME RX GIVEN TO DAUGHTER AND JOSE PICKED UP FROM PHARMACY TO TAKE HOME. AWAITING AMBULANCE SPECIAL WEAPONS AND TACTICS OFFICER ABLE TO TAKE SOME PICTURES. REFUSED SACRAL AND GROIN PICTURE. DC PAPERWORK DONE EDUCATION DONE WITH FAMILY @ BEDSIDE.
--- NOTE | 2017-06-12 19:11 | NUR ---
AMBULANCE PICKED UP PT FAMILY @ BEDSIDE. DC PAPERWORK GIVEN TO DAUGHTER. PT CLEAN AND DRY. DC ID BAND AND PICC LINE. PT TRANSPORTED VIA AMBULANCE HOME.
[2017-06-13] MEDS ORDERED: PROSOURCE / PROSTAT (PYXIS) 30 ML UDC PO SCH (09:00)
== END 2017-06-12 19:46 | disposition home or self-care (01) | DRG 208 ==
LOC: ER 15:14 → ICU 17:20 → TELE1 06-05 10:24 → TELE-TD 06-05 10:31 → TELE1 06-09 09:00 → MEDSG1 06-12 11:17
PROVIDERS: ADMIT Internal Medicine; ATTEND Internal Medicine
PROC: 5A1945Z Respiratory Ventilation, 24-96 Consecutive Hours (ICD-10-PCS; principal; 2017-05-28)
PROC: 0BH17EZ Insertion of Endotracheal Airway into Trachea, Via Natural or Artificial Opening (ICD-10-PCS; 2017-05-28)
PROC: 5A09357 Assistance with Respiratory Ventilation, Less than 24 Consecutive Hours, Continuous Positive Airway Pressure (ICD-10-PCS; 2017-05-28)
PROC: B548ZZA Ultrasonography of Superior Vena Cava, Guidance (ICD-10-PCS; 2017-05-29)
PROC: 02HV33Z Insertion of Infusion Device into Superior Vena Cava, Percutaneous Approach (ICD-10-PCS; 2017-05-29)
PROC: 5A09557 Assistance with Respiratory Ventilation, Greater than 96 Consecutive Hours, Continuous Positive Airway Pressure (ICD-10-PCS; 2017-05-30)
DX: J96.22 Acute and chronic respiratory failure with hypercapnia (principal); N17.0 Acute kidney failure with tubular necrosis; L89.312 Pressure ulcer of right buttock, stage 2; J15.9 Unspecified bacterial pneumonia; I11.0 Hypertensive heart disease with heart failure; J44.0 Chronic obstructive pulmonary disease with (acute) lower respiratory infection; I27.20 Pulmonary hypertension, unspecified; E87.5 Hyperkalemia; I48.91 Unspecified atrial fibrillation; I50.32 Chronic diastolic (congestive) heart failure; J44.1 Chronic obstructive pulmonary disease with (acute) exacerbation; E66.2 Morbid (severe) obesity with alveolar hypoventilation; J96.21 Acute and chronic respiratory failure with hypoxia; I95.9 Hypotension, unspecified; G40.909 Epilepsy, unspecified, not intractable, without status epilepticus; Z99.81 Dependence on supplemental oxygen; E03.9 Hypothyroidism, unspecified; I25.10 Atherosclerotic heart disease of native coronary artery without angina pectoris; Z95.1 Presence of aortocoronary bypass graft; Z95.810 Presence of automatic (implantable) cardiac defibrillator; K21.9 Gastro-esophageal reflux disease without esophagitis; Z66 Do not resuscitate; N40.0 Benign prostatic hyperplasia without lower urinary tract symptoms; Z87.891 Personal history of nicotine dependence; Z68.30 Body mass index [BMI] 30.0-30.9, adult; L98.8 Other specified disorders of the skin and subcutaneous tissue; D50.9 Iron deficiency anemia, unspecified
CPT/HCPCS: 31720; 36415; 36569; 36600; 71010-TC; 80048-TC; 80053-TC; 80076-TC; 82728-TC; 82803-TC; 83540-TC; 83735-TC; 83880; 84100-TC; 84439-TC; 84443-TC; 84484-TC; 85025-TC; 85730-TC; 87040-TC; 87070-TC; 87081-TC; 92611-TC; 93307-TC; 93970-TC; 94002-TC; 94003-TC; 94640-TC; 94760-TC; 94762-TC; 94799-TC; A4216; A4349; A4606; A6248; A6402; C1751; J1644; J1940; J1956; J2916; J2920; J2930; J3475; J3480; J3490; J7030; J7050; J7060; Z7610

== ENCOUNTER 2017-06-13 16:24 | Inpatient (IN) | payer OTHER, MEDICARE ==
[~2017-06-13] VITALS: Ht 180.3 cm; Wt 91.6 kg
[~2017-06-13 16:24] MED LIST changes: -BUDE10.22 INH; -CARI350T27 PO; +DIVA500T54 PO; +ERGO500047 PO; -FURO-144 PO; +IPRA3AMP IH; +LEVO50TA8 PO; -MELO-264 PO; -METO5TAB7 PO; -POTA10CA43 PO; +PRED20TA PO; +SENN-18 PO; +SERT50TA12 PO
--- NOTE | 2017-06-13 16:24 | NUR ---
BBRA 89 FROM HOME C/O SOB RECENTLY DC FROM [facility] FAMILY PUT PT ON CPAP SATING 100%
[2017-06-13 16:39] VITALS: BP 108/57
--- NOTE | 2017-06-13 16:42 | NUR ---
RT NOTE PT PLACED ON BIPAP PER MD ORDER. SETTINGS PRESCRIBED 15/01 RR 20 50%. ALARMS SET PER PROTOCOL AND AUDIBLE. BIPAP PLUGGED IN TO RED OUTLET. AMBU BAG AT BED SIDE. NO DISTRESS NOTED. WILL CONTINUE TO MONITOR. Addendum: 06/13/17 at 1643 by VIV LUI RT Amended: Links added.
--- NOTE | 2017-06-13 16:49 | NUR ---
LAC #20 IV ACCESS. BLOOD SAMPLE COLLECTED SENT TO LAB
[2017-06-13 16:55] LABS: BASOPHILS % (AUTO) 0.1 % (0.0-2.0); EOSINOPHILS # (AUTO) 0.2 /CMM (0.0-0.7); EOSINOPHILS % (AUTO) 1.2 % (0.0-6.0); HEMATOCRIT 29 % (39-51); HEMOGLOBIN 8.9 g/dL (13.5-17.5); MEAN CORPUSCULAR HEMOGLOBIN 23 PG (26.0-33.0); MEAN CORPUSCULAR HGB CONC 31 g/dl (31.0-36.0); MEAN CORPUSCULAR VOLUME 75 fL (80-96); MONOCYTES # (AUTO) 1.7 /CMM (0.1-1.30); MONOCYTES % (AUTO) 8.6 % (2.0-12.0); NEUTROPHILS # (AUTO) 16.6 /CMM (1.8-8.9); NEUTROPHILS % (AUTO) 85.1 % (43.0-81.0); PLATELET COUNT (AUTO) 347 /CMM (150-450); RDW COEFFICIENT OF VARIATION 18.7 (11.5-15.0); RED BLOOD CELL COUNT(AUTO) 3.88 MIL/uL (4.5-6.0); WHITE BLOOD COUNT (AUTO) 19.5 K/uL (4.3-11.0)
[2017-06-13 17:06] LABS: CALCIUM, SERUM 8.3 mg/dL (8.5-10.1); CARBON DIOXIDE 35 mmol/L (21-32); CHLORIDE 104 mmol/L (98-107); CREATININE 0.9 mg/dL (0.6-1.3); GLUCOSE 139 mg/dL (74-106); POTASSIUM 4.1 mmol/L (3.5-5.1); SODIUM SERUM 141 mmol/L (136-145); UREA NITROGEN, BLOOD 24 mg/dL (7-18)
--- NOTE | 2017-06-13 17:06 | NUR ---
URINE SAMPLE COLLECTED SENT TO LAB
[2017-06-13 17:14] LABS: TROPONIN I 0.026 ng/mL (0.00-0.056)
[2017-06-13 17:15] LABS: INR 0.96 (0.87-1.13)
[2017-06-13 17:21] LABS: ALANINE AMINOTRANSFERASE 32 U/L (12-78); ALBUMIN 3.2 g/dL (3.4-5.0); ALKALINE PHOSPHATASE 73 U/L (46-116); ASPARTATE AMINOTRANSFERASE 19 U/L (15-37); B-TYPE NATRIURETIC PEPTIDE 896 PG/ML (0-125); BILIRUBIN,DIRECT 0.1 mg/dL (0.0-0.2); BILIRUBIN,TOTAL 0.3 mg/dL (0.2-1.0); TOTAL PROTEIN, SERUM 6.8 g/dL (6.4-8.2)
[2017-06-13] MEDS ORDERED: MEROPENEM 500 MG in IV NS 0.9% 50 ML IV ONE (17:30)
[2017-06-13] MEDS ORDERED: FUROSEMIDE 20 MG/2 ML VIAL IV ONE (17:30)
[2017-06-13] MEDS ORDERED: VANCOMYCIN 1 GM in IV D5W 250 ML IV ONE (17:30)
[2017-06-13 17:34] LABS: APPEARANCE,URINE CLOUDY (CLEAR); BILIRUBIN,URINE 1+ (NEGATIVE); BLOOD, URINE 3+ Ery/uL (NEGATIVE); COLOR,URINE RED (YELLOW); KETONES,URINE NEGATIVE (NEGATIVE); LEUKOCYTE ESTERASE ,URINE NEGATIVE (NEGATIVE); NITRITE, URINE NEGATIVE (NEGATIVE); PH,URINE 7.5 (5.0-8.0); PROTEIN,URINE 3+ mg/dl (NEGATIVE); UGLUCOSE NEGATIVE (NEGATIVE); UROBILINOGEN,URINE 0.2 EU/dL (0.2)
[2017-06-13] MEDS ORDERED: FUROSEMIDE 20 MG/2 ML VIAL ONE (17:38)
[2017-06-13] MEDS: AMIODARONE HCL 200 MG TABLET PO SCH (18:00)
[2017-06-13] MEDS ORDERED: MECLIZINE HCL 12.5 MG TABLET PO PRN (18:00)
[2017-06-13] MEDS: SENNOSIDES 8.6 MG TABLET PO SCH (18:00)
[2017-06-13] MEDS ORDERED: Medication Not On Formulary EA (Ipratropium/Albuterol Sulfate (Duoneb 2.5-0.5 Mg/3 Ml So IH PRN (18:00)
[2017-06-13] MEDS: PHENYTOIN EXTENDED RELEASE 100 MG CAPSULE PO SCH (18:00)
[2017-06-13 18:03] LABS: ABG BASE EXCESS 6.3 mmol/L; ABG PCO2 58.2 mmHg (35.0-45.0); ABG PH 7.367 (7.350-7.450); ABG PO2 142.4 mmHg (75.0-100.0); AaDO2 148.6 mmHg; COHb 0.9 % (0.5-1.5); MetHb 0.4 % (0.0-1.5); O2Hb 96.7 % (94.0-97.0); PEEP,BG 5 cm H2O; SITE, ABG Right Radial; VENT MODE, BG BIPAP ST 15/5 50%
[2017-06-13] MEDS ORDERED: DOCUSATE SODIUM 100 MG CAPSULE PO PRN (18:30)
[2017-06-13] MEDS: DIVALPROEX SODIUM 250 MG TABLET.DR PO SCH (18:30)
[2017-06-13] MEDS ORDERED: ALBUTEROL FS 2.5 MG/3 ML VIAL.NEB INH PRN (18:30)
[2017-06-13] MEDS ORDERED: IPRATROPIUM NEB FS 0.5 MG/2.5 ML AMPUL.NEB NEB PRN (18:30)
[2017-06-13 18:38] LABS: BACTERIA,URINE None seen /HPF (None Seen); RBC,URINE TOO NUMEROUS TO COUN /HPF (0-2); SQUAMOUS EPITHELIAL CELL,UR Rare /HPF (None Seen)
[2017-06-13 18:41] VITALS: BP 110/63
[2017-06-13 18:45] VITALS: BP 134/68
--- NOTE | 2017-06-13 18:58 | NUR ---
Received 81 year old male from ER with c/o SOB on bipap now settings 15/5 Rate 20 FiO2 40%. Current vitals stable, oxygen saturation 98%. skin intact but discoloration on bilateral extremities. Citizen [place] speaking but unable to talk right now due to respiratory distress and on bipap. Diaper changed with gross hematuria, blood from penile orifice. Called Dr. Langford re: urinary issue, no burger. Aware of meds held due to resp distress.
--- NOTE | 2017-06-13 19:30 | NUR ---
CARTER RN INITIAL NOTE RECEIVED PT FROM BHUMIKA ELLIOTT. PT IN BED. ASLEEP BUT AROUSABLE. ON BIPAP AND TOLERATING WELL. SON AT BEDSIDE. LUNG SOUNDS DIMINISHED. BOWEL SOUNDS PRESENT. INCONTINENT TO URINE AND STOOL, HEMATURIA NOTED ON DIAPER. PER DAY NURSE DR BHATIA AWARE OF HEMATURIA. PULSES PRESENT. GENERALIZED EDEMA NOTED. PICTURES TAKEN FOR ADMISSION. IV PATENT AND INTACT. BED IN LOW LOCKED POSITION. CALL LIGHT WITHIN REACH. BED ALARM ON FOR SAFETY. WILL CONTINUE TO MONITOR.
[2017-06-13 20:00] VITALS: BP 149/70
[2017-06-14] VITALS: BP 121/53
--- NOTE | 2017-06-14 02:00 | NUR ---
CARTER RN PT IN BED, ASLEEP BUT AROUSABLE TO PAINFUL STIMULI. SON AT BEDSIDE. BLE EXTREMITIES COLD AND DUSKY. PT REMAINS ON BIPAP, SATING 100%. PT IS A DNR, THIS WAS CONFIRMED WITH SON MARGARITA. DIAPER CHANGE AT THIS TIME BUT DIAPER IS DRY WITH A BLOOD CLOT NOTED AT THE URETHRAL OPENING. DR BHATIA AWARE OF HEMATURIA. ABDOMEN IS SOFT AND NON TENDER. WILL CONTINUE TO MONITOR.
[2017-06-14 04:00] VITALS: BP 104/63
--- NOTE | 2017-06-14 07:10 | NUR ---
CARTER NOTE- RECEIVED PT RESTING IN BED, LETHARGIC. ON BIPAP, NO SOB OR DISTRESS PRESENT. TELE MONITOR REVEALS SINUS RHYTHM WITH BUNDLE BRANCH BLOCK. PT INCONTINENT OF URINE & STOOL, DIAPER CLEAN & DRY. LEFT AC 20G HL FLUSHED, PATENT AND INTACT. FAMILY REMAINS AT [facility]. SAFETY MEASURES TAKEN: BED LOCKED AND IN LOW POSITION, SIDE RAILS UP X2, BED ALARM ON, WILL CONTINUE TO MONITOR.
[2017-06-14 07:55] LABS: EOSINOPHILS # (AUTO) 0.3 /CMM (0.0-0.7); EOSINOPHILS % (AUTO) 2.4 % (0.0-6.0); HEMATOCRIT 23 % (39-51); HEMOGLOBIN 7.1 g/dL (13.5-17.5); LYMPHOCYTES # (AUTO) 1.1 /CMM (0.8-4.8); LYMPHOCYTES % (AUTO) 7.1 % (20.0-44.0); MEAN CORPUSCULAR HEMOGLOBIN 23 PG (26.0-33.0); MEAN CORPUSCULAR HGB CONC 31 g/dl (31.0-36.0); MEAN CORPUSCULAR VOLUME 75 fL (80-96); MONOCYTES # (AUTO) 1.7 /CMM (0.1-1.30); MONOCYTES % (AUTO) 11.2 % (2.0-12.0); NEUTROPHILS # (AUTO) 11.8 /CMM (1.8-8.9); NEUTROPHILS % (AUTO) 79.3 % (43.0-81.0); PLATELET COUNT (AUTO) 242 /CMM (150-450); RDW COEFFICIENT OF VARIATION 18.2 (11.5-15.0); RED BLOOD CELL COUNT(AUTO) 3.11 MIL/uL (4.5-6.0); WHITE BLOOD COUNT (AUTO) 14.8 K/uL (4.3-11.0)
[2017-06-14 08:00] VITALS: BP 96/45
[2017-06-14 08:03] LABS: CARBON DIOXIDE 34 mmol/L (21-32); CHLORIDE 105 mmol/L (98-107); CREATININE 0.9 mg/dL (0.6-1.3); GLUCOSE 102 mg/dL (74-106); POTASSIUM 3.3 mmol/L (3.5-5.1); SODIUM SERUM 144 mmol/L (136-145); UREA NITROGEN, BLOOD 21 mg/dL (7-18)
[2017-06-14] MEDS ORDERED: Z GUARD REMEDY 2 OZ OINT TP PRN (08:30)
[2017-06-14] MEDS ORDERED: HYDROGEL DRESSING 90 GM TUBE TP PRN (08:30)
--- NOTE | 2017-06-14 08:39 | NUR ---
WOUND CARE CONSULT PATIENT SEEN AND SKIN INTEGRITY ASSESSMENT DONE. SEE SWITCHBOARD OPERATOR ASSISTANT ASSESSMENT IN PCS FOR TODAY ALONG WITH ALL RECOMMENDATIONS. PATIENT WITH CURRENT AP AT 11. 1ST STEP LOW AIRLOSS MATTRESS ORDERED FOR SKIN MANAGEMENT AND TMT. ALL DISCUSSED WITH NURSING AT THE BEDSIDE. RECOMMEND TURNING SCHED Q 2 HOURS, BILATERAL HEEL FLOATING, Z GUARD FOR SKIN/MOISTURE MANAGEMENT. MD IN AGREEMENT WITH PLAN OF CARE AND ALL TREATMENT PLANS. PATIENT HAS FAMILY AT THE BEDSIDE. PATIENT NOTED TO HAVE MILD EXCORIATIONS TO THE RIGHT AND LEFT BUTTOCKS, Z GUARD ORDERED FOR SKIN MANAGEMENT. Addendum: 06/14/17 at 0844 by FCO AMATO WNDNU Amended: Links added.
[2017-06-14] MEDS: SENNOSIDES 8.6 MG TABLET PO SCH ×2 (09:00→16:20)
[2017-06-14] MEDS: DIVALPROEX SODIUM 250 MG TABLET.DR PO SCH ×2 (09:00→16:20)
[2017-06-14] MEDS: SERTRALINE HCL 50 MG TABLET PO SCH (09:00)
[2017-06-14] MEDS: FERROUS SULFATE (325 MG) 325 MG/TAB TABLET PO SCH (09:00)
[2017-06-14] MEDS: SPIRONOLACTONE 25 MG TABLET PO SCH (09:00)
[2017-06-14] MEDS: PHENYTOIN EXTENDED RELEASE 100 MG CAPSULE PO SCH ×3 (09:00→16:20)
[2017-06-14] MEDS: AMIODARONE HCL 200 MG TABLET PO SCH ×2 (09:00→16:20)
[2017-06-14] MEDS ORDERED: POTASSIUM CHLORIDE 20 MEQ TAB.PRT.SR PO ONE (09:00)
[2017-06-14] MEDS: TAMSULOSIN 0.4 MG CAP.SR.24H PO SCH (09:00)
[2017-06-14] MEDS: predniSONE 20 MG TABLET PO SCH (09:00)
[2017-06-14] MEDS: LEVOTHYROXINE SODIUM 50 MCG TABLET PO SCH (09:00)
--- NOTE | 2017-06-14 09:02 | NUR ---
CARTER NOTE- PT LETHARGIC. MEDICATIONS HELD FOR PT SAFETY. DR. BHATIA MADE AWARE. POTASSIUM PO CHANGED TO KCL 20 MEQ IV PER MD. WILL CONTINUE TO MONITOR.
[2017-06-14] MEDS ORDERED: POTASSIUM CHLORIDE 10 MEQ/50 ML PREMIXED IVPB FOR PERIPHERAL LINE IV ONE ×2 (09:30→10:30)
[2017-06-14] MEDS: POTASSIUM CL. PREMIX PERIPHER. 50 ML IV SCH ×2 (10:15→11:27)
[2017-06-14] MEDS: Z GUARD REMEDY 2 OZ OINT TP SCH (10:16)
[2017-06-14] MEDS: HYDROGEL DRESSING 90 GM TUBE TP SCH (10:16)
--- NOTE | 2017-06-14 11:45 | NUR ---
CARTER NOTE- PT AWAKE AND PUT UP IN CHAIR WITH ASSISTANCE FROM IVAN LEON. FAMILY REMAINS AT BEDSIDE. WILL CONTINUE TO MONITOR.
[2017-06-14] MEDS: ALBUTEROL FS 2.5 MG/3 ML VIAL.NEB INH SCH ×3 (11:46→20:45)
[2017-06-14] MEDS: IPRATROPIUM NEB FS 0.5 MG/2.5 ML AMPUL.NEB NEB SCH ×3 (11:47→20:45)
[2017-06-14 12:00] VITALS: BP 103/55
[2017-06-14 16:00] VITALS: BP 100/48
--- NOTE | 2017-06-14 16:23 | NUR ---
CARTER NOTE- AFTERNOON MEDS GIVEN TO PT WITHOUT DIFFICULTY. PT ABLE TO SWALLOW PILLS WHOLE. PT REMAINS SITTING UP IN CHAIR, AT BEDSIDE. WILL CONTINUE TO MONITOR.
[2017-06-14] MEDS ORDERED: PRED20TA PO (17:09)
--- NOTE | 2017-06-14 18:15 | NUR ---
Per Jere WARNER @ [place] [phone], patient has been accepted at [facility] room# 3340, accepting CINDY Martin. Per Shiva intake at [place]- bed will be available tomorrow 06/15/17. Nurse to call report to [place] [phone] OPT#[phone]. Ambulance on will call [facility] [phone] (Medicare Part B covered ). Need to inform ambulance if BIPAP is needed during transport to [place] tomorrow. Left message to Ryne (children) [phone] Addendum: 06/14/17 at 1924 by JASEN GILLETTE RN Amended: Links added.
[2017-06-14 20:00] VITALS: BP_SYST 100; BP_SYST 120; BP_DIAS 48; BP_DIAS 73
--- NOTE | 2017-06-14 21:31 | NUR ---
STEEL POST INSTALLER SUPERVISOR. INITIAL ASSESSMENT. RECEIVED THE PT REST ON THE BED. AWAKE, ALERT, FOLLOW COMMANDS. LEGAL ASSISTANT SHOWING NSR. OXYGEN VENTURI MASK 28%. SAT 98%. HOB ELEVATED. HEMATURIA NOTED. IV LT AC 20G. SALINE FLUSH. TURN AND REPOSITION PT IS INDEPENDENT. WILL CONTINUE TO MONITOR VITALS.
[2017-06-15] VITALS: BP_SYST 110; BP_SYST 116; BP_DIAS 51; BP_DIAS 62
[2017-06-15] MEDS: IPRATROPIUM NEB FS 0.5 MG/2.5 ML AMPUL.NEB NEB SCH ×2 (01:29→08:07)
[2017-06-15] MEDS: ALBUTEROL FS 2.5 MG/3 ML VIAL.NEB INH SCH ×2 (01:29→08:07)
--- NOTE | 2017-06-15 03:18 | NUR ---
RN NOTE. AM CARE. ORAL CARE, BED BATH GIVEN. LINEN CHANGED. REMAINING SAME BIPAP SETTING TOLERATED WELL. SAT 98%. NURSING CARE PARTNER SHOWING NSR. IV LT HAND 29G SALINE LOCK. HOB ELEVATED. PT HAS HEMATURIA. WILL CONTINUE TO MONITOR VITALS.
[2017-06-15 04:00] VITALS: BP 118/68
--- NOTE | 2017-06-15 07:10 | NUR ---
DRESS CAP MAKER NOTE: RECEIVED PATIENT RESTING IN BED WITH BIPAP ON AND TOLERATING SETTINGS. EASILY AROUSABLE TO NAME, MAORI SPEAKING, A&OX2-3. ON TELE MONITOR WITH SR BBB, 72. LAC PATENT AND INTACT. HOB ELEVATED, BED LOW, LOCKED, X2 SIDE RAILS UP AND CALL LIGHT WITHIN REACH. WILL CONT TO MONITOR.
[2017-06-15 07:12] LABS: EOSINOPHILS # (AUTO) 0.4 /CMM (0.0-0.7); EOSINOPHILS % (AUTO) 2.1 % (0.0-6.0); HEMATOCRIT 22 % (39-51); LYMPHOCYTES # (AUTO) 1.6 /CMM (0.8-4.8); LYMPHOCYTES % (AUTO) 9.5 % (20.0-44.0); MEAN CORPUSCULAR HEMOGLOBIN 24 PG (26.0-33.0); MEAN CORPUSCULAR HGB CONC 32 g/dl (31.0-36.0); MEAN CORPUSCULAR VOLUME 76 fL (80-96); MONOCYTES # (AUTO) 1.9 /CMM (0.1-1.30); NEUTROPHILS # (AUTO) 13.3 /CMM (1.8-8.9); NEUTROPHILS % (AUTO) 77.4 % (43.0-81.0); PLATELET COUNT (AUTO) 261 /CMM (150-450); RDW COEFFICIENT OF VARIATION 18.4 (11.5-15.0); RED BLOOD CELL COUNT(AUTO) 2.96 MIL/uL (4.5-6.0); WHITE BLOOD COUNT (AUTO) 17.2 K/uL (4.3-11.0)
[2017-06-15 07:23] LABS: CARBON DIOXIDE 33 mmol/L (21-32); CHLORIDE 102 mmol/L (98-107); CREATININE 0.9 mg/dL (0.6-1.3); GLUCOSE 91 mg/dL (74-106); POTASSIUM 3.8 mmol/L (3.5-5.1); SODIUM SERUM 140 mmol/L (136-145); UREA NITROGEN, BLOOD 23 mg/dL (7-18)
[2017-06-15 08:00] VITALS: BP 134/67
[2017-06-15 09:00] VITALS: BP 99/57
[2017-06-15] MEDS: AMIODARONE HCL 200 MG TABLET PO SCH (09:00)
[2017-06-15] MEDS: SPIRONOLACTONE 25 MG TABLET PO SCH (09:00)
--- NOTE | 2017-06-15 11:11 | NUR ---
TD RN NOTE: FAMILY MEMBER BROUGHT HOME MEDICATION RANEXA 500MG. PHARMACY CONTACTED AND WILL DROP OFF MED.
[2017-06-15] MEDS: PHENYTOIN EXTENDED RELEASE 100 MG CAPSULE PO SCH (13:01)
[2017-06-15] MEDS: SERTRALINE HCL 50 MG TABLET PO SCH (13:01)
[2017-06-15] MEDS: SENNOSIDES 8.6 MG TABLET PO SCH (13:02)
[2017-06-15] MEDS: TAMSULOSIN 0.4 MG CAP.SR.24H PO SCH (13:02)
[2017-06-15] MEDS: LEVOTHYROXINE SODIUM 50 MCG TABLET PO SCH (13:02)
[2017-06-15] MEDS: DIVALPROEX SODIUM 250 MG TABLET.DR PO SCH (13:02)
[2017-06-15] MEDS: predniSONE 20 MG TABLET PO SCH (13:02)
[2017-06-15] MEDS: FERROUS SULFATE (325 MG) 325 MG/TAB TABLET PO SCH (13:02)
[2017-06-15] MEDS: Z GUARD REMEDY 2 OZ OINT TP SCH (13:03)
[2017-06-15] MEDS: HYDROGEL DRESSING 90 GM TUBE TP SCH (13:03)
--- NOTE | 2017-06-15 14:09 | NUR ---
DIAMOND EXPERT NOTE: PATIENT D/C TO [facility] IN STABLE CONDITION. REPORT GIVEN TO INTAKE NURSE [facility] [phone] EXT [phone]. VS: 98.2 TEMP, 73 HR, 20 RR, 100% O2SAT, 99/57 BP. D/C FORMS AND BELONGINGS LIST SIGNED. BELONGINGS RETURNED. D/C FORMS GIVEN TO EMT FOR TRANSPORT. REFUSED PICTURES. ORDERS CARRIED OUT. PATIENT LEFT VIA GURNEY WITH 2 EMT AT 1409.
[2017-06-19] MEDS ORDERED: ERGOCALCIFEROL (VITAMIN D 2) 50,000 UNIT CAPSULE PO SCH (09:00)
== END 2017-06-15 14:29 | disposition short-term general hospital (02) | DRG 133 ==
LOC: ER 16:29 → TELE-TD 18:25
PROVIDERS: ADMIT Internal Medicine; ATTEND Internal Medicine
PROC: 5A09357 Assistance with Respiratory Ventilation, Less than 24 Consecutive Hours, Continuous Positive Airway Pressure (ICD-10-PCS; principal; 2017-06-13)
DX: J96.21 Acute and chronic respiratory failure with hypoxia (principal); L89.152 Pressure ulcer of sacral region, stage 2; I11.0 Hypertensive heart disease with heart failure; I27.20 Pulmonary hypertension, unspecified; F03.90 Unspecified dementia, unspecified severity, without behavioral disturbance, psychotic disturbance, mood disturbance, and anxiety; E66.2 Morbid (severe) obesity with alveolar hypoventilation; I50.9 Heart failure, unspecified; J44.1 Chronic obstructive pulmonary disease with (acute) exacerbation; I48.91 Unspecified atrial fibrillation; G40.909 Epilepsy, unspecified, not intractable, without status epilepticus; D64.9 Anemia, unspecified; E03.9 Hypothyroidism, unspecified; F41.9 Anxiety disorder, unspecified; I25.10 Atherosclerotic heart disease of native coronary artery without angina pectoris; K21.9 Gastro-esophageal reflux disease without esophagitis; Z95.1 Presence of aortocoronary bypass graft; J96.22 Acute and chronic respiratory failure with hypercapnia; R31.9 Hematuria, unspecified; Z95.810 Presence of automatic (implantable) cardiac defibrillator; Z66 Do not resuscitate; Z87.891 Personal history of nicotine dependence; N40.0 Benign prostatic hyperplasia without lower urinary tract symptoms; Z68.28 Body mass index [BMI] 28.0-28.9, adult
CPT/HCPCS: 31720; 36415; 36600; 71010-TC; 80048-TC; 80076-TC; 80164-TC; 81000-TC; 82803-TC; 83605-TC; 83880; 84484-TC; 85025-TC; 85730-TC; 86850-TC; 87040-TC; 87081-TC; 87086-TC; 94761-TC; 94799-TC; A4216; A4606; A6248; J1940; J2185; J3370; J3480; J7050; J7060; Z7610